=== PATIENT | male | born 1970 | race Caucasian/White ===

== ENCOUNTER → 2020-01-14 13:36 | Outpatient (REF) | payer OTHER, SELFPAY ==
--- NOTE | 2020-01-14 13:43 | CA_ITS ---
Transthoracic Echocardiogram Patient (Last, First, Middle): Calvin Alvarez, Gender: Male Date of : 1970 Age: 49 Procedure Date: 01/14/2020 Procedure Type: Transthoracic Echocardiogram Location: OP Height: 177.8 cm Weight: 118.39 kg BSA: 2.34 m2 Heart Rate: bpm BP: 140 / 82 mmHg Cpo: Referring MD: Alexander Lee [facility] Symptoms: R01.1 - Cardiac murmur, unspecified Study Quality: Good ECG Rhythm: Sinus Conclusions: - The left ventricular systolic function is normal. The visually estimated ejection fraction is between 60-65%. - No obvious valvular pathology seen on this study. - Top normal ascending aortic size at 3.8 cm. Findings Left Ventricle Normal left ventricular cavity size. There is moderately increased left ventricular wall thickness. The left ventricular systolic function is normal. The visually estimated ejection fraction is between 60-65%. There is no evidence of regional wall motion abnormalities. Diastolic function is normal for age. Right Ventricle Normal right ventricular cavity size and systolic function. Atria The left atrium is normal in size. The right atrium is normal in size. Aortic Valve There is a normal trileaflet aortic valve. There is no aortic valve stenosis. There is trace (trivial) aortic valve regurgitation. Mitral Valve The mitral valve appears normal. There is trace mitral valve regurgitation. There is no mitral valve stenosis. Pulmonic Valve The pulmonic valve was not well visualized. Tricuspid Valve Normal tricuspid valve structure. There is trace tricuspid valve regurgitation. The pulmonary artery systolic pressure is normal. Great Vessels Top normal ascending aortic size at 3.8 cm. Venous The inferior vena cava is normal in size and collapses greater than 50% with inspiration. Pericardium/Pleural There is no evidence of pericardial effusion. Prior Study Comparison No significant change compared to prior study dated: 07/13/2017. Recommendations, Care & Conclusions No obvious valvular pathology seen on this study. Measurements 2D Linear Measurements IVSd: 1.41 0.6-0.9/0.6-1.0 cm LVIDd: 4.50 3.9-5.3/4.2-5.9 cm LVIDd Index: 1.92 2.4-3.2/2.2-3.1 cm/m2 LVIDs: 2.70 2.0-3.6 cm LVPWd: 1.30 0.7-1.1 cm Ao Root: 3.50 2.1-3.5 cm LA Diam: 3.70 2.7-3.8/3.0-4.0 cm LAIDs Index: 1.58 1.5-2.3 cm/m2 LV Mass: 295.03 67-162/88-224 g LV Mass Index: 126.08 43-95/49-115 g/m2 LVOT Diam: 2.10 3.0+(-)1.3 cm Mitral Valve MV Pk E: 0.70 MV PK A: 0.75 MV Decel Time: 234.00 E/A: 0.90 E'Lateral: 10.80 E'Medial: 7.07 E/E' Med: 10.00 E/E' Lat: 6.50 PHT: 69.00 MVA PHT: 3.19 Decel Dickinson: 3.01 Aortic Valve AoV Pk Jaime: 1.65 AoV Mn Jaime: 1.13 AoV VTI: 0.39 AoV Pk Grad: 11.00 Aov Mn Grad: 6.00 SUZANNE Cont.VTI: 2.24 LVOT LVOT Pk Jaime: 1.25 LVOT Mn Jaime: 0.82 LVOT VTI: 0.25 LVOT Pk Grad: 6.00 LVOT Mn Grad: 3.00 LVOT Diam: 2.10 LVOT Area: 3.46 Diastolic Function MV Pk E: 0.70 MV Pk A: 0.75 E/A: 0.90 E'Medial: 7.07 E/E' Med: 10.00 E' Laterial: 10.80 E/E' Lat: 6.50 Tricuspid Valve TR Pk Jaime: 1.63 TR Pk Grad: 11.00 RA Press: 3.00 RVSP: 14.00 Great Vessels Aorta Ao Root-2D: 3.50 2.0-3.7 cm Pulmonary Valve PV Pk Jaime: 1.04 Peak PV Grad: 4.00 Updated in Other Vendor System with Status of Final Pascual Kuhn MD electronically signed on 01/15/2020 9:18:50 AM with status of Final
== END ==
LOC: HO.CARD 13:36
PROVIDERS: Visit Provider Nurse Practitioner Family
DX: R01.1 Cardiac murmur, unspecified (principal)
CPT/HCPCS: 93306

== ENCOUNTER 2020-05-16 10:05 | Outpatient (REF) | payer OTHER, SELFPAY ==
--- NOTE | ~2020-05-16 | XR_ITS ---
EXAMINATION: XR CHEST CLINICAL INFORMATION: Shortness of breath COMPARISON: Previous chest x-ray most recent September 2018 TECHNIQUE: 2 views of the chest were obtained. FINDINGS: No significant abnormality is noted involving the heart, lungs, mediastinum, bony thorax or soft tissues. XR/XR chest 2V IMPRESSION: Unremarkable examination.
== END 2020-05-16 10:06 | disposition home or self-care (01) ==
LOC: HO.HMGCX 10:05
PROVIDERS: PCP Nurse Practitioner Family; Visit Provider Hospitalist
DX: R06.02 Shortness of breath (principal)
CPT/HCPCS: 71046

== ENCOUNTER 2020-07-07 07:55 | Outpatient (REF) | payer OTHER, SELFPAY ==
[2020-07-07 12:07] LABS: Anion Gap 11 (12-20); Blood Urea Nitrogen 13 mg/dL (9-16); Calcium 8.6 mg/dL (8.4-10.2); Carbon Dioxide 28 mmol/L (22-29); Chloride 104 mmol/L (96-108); Cholesterol 154 mg/dL; Estimated Glomerular Filt Rate > 60; Glucose Fasting 90 mg/dL (60-99); HDL Cholesterol 52 mg/dL; LDL Cholesterol Calculated 88 mg/dl; Potassium 4.3 mmol/L (3.3-5.1); Sodium 139 mmol/L (135-145); Triglycerides 74 mg/dL
[2020-07-07 12:12] LABS: TSH reflex Free T4 0.32 uIU/mL (0.32-4.0)
== END 2020-07-07 07:56 | disposition home or self-care (01) ==
LOC: HO.HMGCLDS 07:55
PROVIDERS: PCP Nurse Practitioner Family; Visit Provider Nurse Practitioner Family
DX: R51.9 Headache, unspecified (principal); Z12.5 Encounter for screening for malignant neoplasm of prostate
CPT/HCPCS: 36415; 80048; 80061; 84443

== ENCOUNTER 2020-08-25 08:25 | Outpatient (REF) | payer OTHER, SELFPAY ==
[2020-08-25 11:50] LABS: Alanine Aminotransferase 27 U/L (0-40); Albumin Level 4.1 g/dL (3.5-5.0); Alkaline Phosphatase 98 U/L (39-117); Anion Gap 12 (12-20); Aspartate Amino Transferase 25 U/L (5-37); Bilirubin Total 1.4 mg/dL (0.0-1.0); Blood Urea Nitrogen 8 mg/dL (9-16); Calcium 8.8 mg/dL (8.4-10.2); Carbon Dioxide 27 mmol/L (22-29); Chloride 105 mmol/L (96-108); Cholesterol 178 mg/dL; Estimated Glomerular Filt Rate > 60; Glucose Fasting 83 mg/dL (60-99); HDL Cholesterol 50 mg/dL; LDL Cholesterol Calculated 113 mg/dl; Potassium 4.7 mmol/L (3.3-5.1); Sodium 139 mmol/L (135-145); Total Protein 6.9 g/dL (6.5-8.0); Triglycerides 77 mg/dL
[2020-08-25 12:13] LABS: TSH reflex Free T4 0.32 uIU/mL (0.32-4.0)
== END 2020-08-25 08:26 | disposition home or self-care (01) ==
LOC: HO.HMGCLDS 08:25
PROVIDERS: PCP Nurse Practitioner Family; Visit Provider Nurse Practitioner Family
DX: Z12.5 Encounter for screening for malignant neoplasm of prostate (principal); F41.9 Anxiety disorder, unspecified
CPT/HCPCS: 36415; 80053; 80061; 84153; 84443

== ENCOUNTER 2021-01-31 07:29 | Outpatient (REF) | payer OTHER, SELFPAY ==
[2021-01-31 11:18] LABS: Appearance Urine CLEAR; Color Urine YELLOW; Glucose Urine UA NEG (NEG); Leukocyte Esterase Urine NEG (NEG); Nitrite Urine NEG (NEG); PH 7.5 (5.0-8.0); Specific Gravity - Urine 1.015 (1.005-1.025); Urine Blood NEG (NEG); Urine Ketones NEG (NEG); Urine Protein NEG (NEG-TRACE)
[2021-01-31 11:49] LABS: Alanine Aminotransferase 29 U/L (0-40); Alkaline Phosphatase 104 U/L (39-117); Anion Gap 9 (12-20); Aspartate Amino Transferase 24 U/L (5-37); Bilirubin Total 1.3 mg/dL (0.0-1.0); Blood Urea Nitrogen 11 mg/dL (9-16); Calcium 8.8 mg/dL (8.4-10.2); Carbon Dioxide 29 mmol/L (22-29); Chloride 103 mmol/L (96-108); Cholesterol 140 mg/dL; Estimated Glomerular Filt Rate > 60; Glucose Fasting 94 mg/dL (60-99); HDL Cholesterol 43 mg/dL; LDL Cholesterol Calculated 85 mg/dl; Sodium 137 mmol/L (135-145); Total Protein 6.8 g/dL (6.5-8.0); Triglycerides 60 mg/dL
[2021-01-31 11:52] LABS: Prostate Specific Antigen Scr 0.65 ng/mL (<0.05-4.0)
[2021-01-31 12:35] LABS: Free T4 (Free Thyroxine) 0.83 ng/dL (0.71-1.85)
== END 2021-01-31 07:30 | disposition home or self-care (01) ==
LOC: HO.HMGCLDS 07:29
PROVIDERS: PCP Nurse Practitioner Family; Visit Provider Nurse Practitioner Family
DX: Z00.00 Encounter for general adult medical examination without abnormal findings (principal); Z12.5 Encounter for screening for malignant neoplasm of prostate
CPT/HCPCS: 36415; 80053; 80061; 81003; 84153; 84439; 84443

== ENCOUNTER 2021-08-03 09:13 | Outpatient (REF) | payer OTHER, SELFPAY ==
[2021-08-03 11:14] LABS: MANUAL DIFF FLAG NO
[2021-08-03 11:17] LABS: Appearance Urine CLEAR; Color Urine YELLOW; Glucose Urine UA NEG (NEG); Leukocyte Esterase Urine NEG (NEG); Nitrite Urine NEG (NEG); Urine Blood NEG (NEG); Urine Ketones NEG (NEG); Urine Protein NEG (NEG-TRACE)
[2021-08-03 11:20] LABS: Basophils Absolute Auto 0.1 X10*3/uL (0.0-0.2); Basophils Percent Auto 0.9 % (0-2); Eosinophils Absolute Auto 0.1 X10*3/uL (0.0-0.4); Eosinophils Percent Auto 1.9 % (0-4); Hematocrit 51.4 % (42.0-52.0); Hemoglobin 16.9 g/dl (14.0-18.0); Imm Gran Abs Auto 0.02 X10*3/uL (0.00-0.03); Imm Gran Pct Auto 0.3 % (0.0-0.4); Lymphocytes Absolute Auto 1.8 X10*3/uL (1.2-4.9); Lymphocytes Percent Auto 26.4 % (20-40); Mean Corpuscular HGB Conc 32.9 g/dl (31.0-36.0); Mean Corpuscular Hemoglobin 29.2 pg (27.0-33.0); Mean Corpuscular Volume 88.8 fL (80.0-98.0); Mean Platelet Volume 12.8 fL (9.4-12.4); Monocytes Absolute Auto 0.6 X10*3/uL (0.1-1.2); Monocytes Percent Auto 8.3 % (2-11); Neutrophils Absolute Auto 4.2 x10*3/uL (2.0-8.3); Neutrophils Percent Auto 62.2 % (45-73); Platelet Count 146 X10*3/uL (160-400); Red Blood Count 5.79 X10*6/uL (4.60-5.80); Red Cell Distribution Width 13.6 % (11.0-16.0); White Blood Count 6.7 X10*3/uL (4.8-10.8)
[2021-08-03 11:57] LABS: TSH reflex Free T4 0.35 uIU/mL (0.32-4.0)
[2021-08-03 12:09] LABS: Alanine Aminotransferase 24 U/L (0-40); Albumin Level 3.9 g/dL (3.5-5.0); Alkaline Phosphatase 119 U/L (39-117); Anion Gap 11 (12-20); Aspartate Amino Transferase 24 U/L (5-37); Bilirubin Total 1.6 mg/dL (0.0-1.0); Blood Urea Nitrogen 13 mg/dL (9-16); Calcium 9.3 mg/dL (8.4-10.2); Carbon Dioxide 28 mmol/L (22-29); Chloride 103 mmol/L (96-108); Cholesterol 159 mg/dL; Estimated Glomerular Filt Rate > 60; Glucose Fasting 96 mg/dL (60-99); HDL Cholesterol 46 mg/dL; LDL Cholesterol Calculated 103 mg/dl; Potassium 4.6 mmol/L (3.3-5.1); Sodium 137 mmol/L (135-145); Total Protein 7.2 g/dL (6.5-8.0); Triglycerides 50 mg/dL
== END 2021-08-03 09:14 | disposition home or self-care (01) ==
LOC: HO.HMGCLDS 09:13
PROVIDERS: PCP Nurse Practitioner Family; Visit Provider Nurse Practitioner Family
DX: R07.9 Chest pain, unspecified (principal)
CPT/HCPCS: 36415; 80053; 80061; 81003; 84443; 85025

== ENCOUNTER 2021-09-03 06:41 | Outpatient (REF) | payer OTHER, SELFPAY ==
[2021-09-03 11:26] LABS: Bilirubin Direct 0.6 mg/dL (0.0-0.5); Bilirubin Total 1.5 mg/dL (0.0-1.0)
== END 2021-09-03 06:42 | disposition home or self-care (01) ==
LOC: HO.HMGCLDS 06:41
PROVIDERS: Visit Provider Nurse Practitioner Family
DX: R17 Unspecified jaundice (principal)
CPT/HCPCS: 36415; 82247; 82248

== ENCOUNTER → 2021-10-19 10:54 | Outpatient (BNVA) | payer OTHER, SELFPAY | PROVIDERS: PCP Nurse Practitioner Family; Visit Provider Nurse Practitioner Family | DX: R17 Unspecified jaundice (principal); R79.89 Other specified abnormal findings of blood chemistry; R74.8 Abnormal levels of other serum enzymes; R10.9 Unspecified abdominal pain; K58.2 Mixed irritable bowel syndrome; R14.0 Abdominal distension (gaseous) | CPT/HCPCS: 99202; 99212 ==

== ENCOUNTER 2021-10-24 08:05 | Outpatient (REF) | payer OTHER, SELFPAY ==
[2021-10-24 09:50] LABS: Bilirubin Direct 0.7 mg/dL (0.0-0.5); Bilirubin Total 1.9 mg/dL (0.0-1.0); Lipase 46 U/L (8-78)
[2021-10-26 03:35] LABS: HBS Num1 0.43 mIU/mL (0-7.99); HBc Num1 0.07 S/CO (0.00-0.79); HIV Num 1 0.09 S/CO (0.00-0.99); Hepatitis B Core Antibody Nonreactive (Nonreactive); ~HepC Num1 0.06 S/CO (0.00-0.79); ~Hepatitis B Surface Antibody NONREACTIVE (Nonreactive); ~Hepatitis C Antibody Nonreactive (Nonreactive)
[2021-10-26 03:36] LABS: HBsAGNum1 0.22 S/CO (0.00-0.99); HIV AB/AG Nonreactive (Nonreactive); Hepatitis B Surface Antigen Negative (Negative)
[2021-10-26 14:07] LABS: Alpha Fetoprotein 0.7 ng/mL (<6.1)
[2021-10-27 08:42] LABS: Anti Nuclear Antibody Screen NEGATIVE (NEGATIVE)
[2021-10-28 05:01] LABS: Hepatitis A Antibody IgM 0.13 Index (0-0.79); ~Hepatitis A Antibody IgM Nonreactive (Nonreactive)
[2021-10-28 14:02] LABS: Smooth Muscle Antibody <20 U (<20)
[2021-10-29 06:51] LABS: Mitochondrial Antibodies NEGATIVE (NEGATIVE)
[2021-10-30 19:36] LABS: Pancreatic Elastase-1 125 mcg/g
== END 2021-10-24 08:06 | disposition home or self-care (01) ==
LOC: HO.LAB 08:05
PROVIDERS: PCP Nurse Practitioner Family; Visit Provider Nurse Practitioner Family
DX: Z11.4 Encounter for screening for human immunodeficiency virus [HIV] (principal); R10.9 Unspecified abdominal pain; R17 Unspecified jaundice; R79.89 Other specified abnormal findings of blood chemistry; R74.8 Abnormal levels of other serum enzymes
CPT/HCPCS: 36415; 82105; 82247; 82248; 82656; 83690; 86015; 86038; 86039; 86255; 86256; 86704; 86706; 86709; 86803; 87340; 87389

== ENCOUNTER 2021-12-07 12:36 | Outpatient (REF) | payer OTHER, SELFPAY ==
--- NOTE | ~2021-12-07 | US_ITS ---
EXAMINATION: US ABDOMEN COMPLETE CLINICAL INFORMATION: Unspecified jaundice. COMPARISON: X-ray KUB 11/22/2016. TECHNIQUE: Real-time imaging of the abdominal viscera. FINDINGS: PANCREAS: Visualized portions of the pancreas are unremarkable. The pancreatic tail is obscured by bowel gas. ABDOMINAL AORTA: Visualized aorta is normal in caliber however portions are obscured by bowel gas. INFERIOR VENA CAVA: Obscured by bowel gas. LIVER: The liver is normal in size. The liver contour is normal. There is diffuse increased liver parenchymal echogenicity, consistent with infiltrative hepatocellular disease. No focal hepatic lesion. There is no intrahepatic biliary duct dilatation seen. GALLBLADDER: Normal. The gallbladder is physiologically distended without evidence of stones, sludge, polyps, wall thickening or pericholecystic fluid. COMMON BILE DUCT: Normal in caliber measuring 0.2 cm in diameter. RIGHT KIDNEY: Normal. No hydronephrosis. No renal calculi or focal parenchymal lesions. The kidney measures 11.4 cm in maximum dimension. LEFT KIDNEY: Normal. No hydronephrosis. No renal calculi or focal parenchymal lesions. The kidney measures 11.0 cm in maximum dimension. SPLEEN: Normal. The spleen measures 9.3 cm in maximum dimension. FREE FLUID: None. US/US abdomen complete IMPRESSION: Increased hepatic echogenicity which can be seen in the setting of hepatic steatosis or underlying liver disease. Portions of the pancreas, aorta and IVC were obscured by bowel gas limiting evaluation.
== END 2021-12-07 12:37 | disposition home or self-care (01) ==
LOC: HO.US 12:36
PROVIDERS: Visit Provider Nurse Practitioner Family
DX: R17 Unspecified jaundice (principal)
CPT/HCPCS: 76700

== ENCOUNTER 2022-01-18 07:38 | Outpatient (REF) | payer OTHER, SELFPAY ==
[2022-01-18 11:22] LABS: MANUAL DIFF FLAG NO
[2022-01-18 11:22] LABS: Appearance Urine Clear; Color Urine Yellow; Glucose Urine UA Negative (Negative); Leukocyte Esterase Urine Negative (Negative); Nitrite Urine Negative (Negative); PH 8.5 (5.0-9.0); Urine Blood Negative (Negative); Urine Ketones Negative (Negative); Urine Protein Negative (Neg-Trace)
[2022-01-18 11:26] LABS: Basophils Percent Auto 0.6 % (0-2); Eosinophils Absolute Auto 0.1 X10*3/uL (0.0-0.4); Eosinophils Percent Auto 1.7 % (0-4); Hematocrit 49.6 % (42.0-52.0); Hemoglobin 16.2 g/dl (14.0-18.0); Imm Gran Abs Auto 0.01 X10*3/uL (0.00-0.03); Imm Gran Pct Auto 0.1 % (0.0-0.4); Lymphocytes Absolute Auto 1.9 X10*3/uL (1.2-4.9); Mean Corpuscular HGB Conc 32.7 g/dl (31.0-36.0); Mean Corpuscular Hemoglobin 29.5 pg (27.0-33.0); Mean Corpuscular Volume 90.3 fL (80.0-98.0); Monocytes Absolute Auto 0.5 X10*3/uL (0.1-1.2); Monocytes Percent Auto 6.9 % (2-11); Neutrophils Absolute Auto 4.5 x10*3/uL (2.0-8.3); Neutrophils Percent Auto 63.7 % (45-73); Platelet Count 159 X10*3/uL (160-400); Red Blood Count 5.49 X10*6/uL (4.60-5.80); Red Cell Distribution Width 13.7 % (11.0-16.0); White Blood Count 7.1 X10*3/uL (4.8-10.8)
[2022-01-18 12:12] LABS: Alanine Aminotransferase 24 U/L (0-40); Albumin Level 3.9 g/dL (3.5-5.0); Alkaline Phosphatase 108 U/L (39-117); Anion Gap 11 (12-20); Aspartate Amino Transferase 23 U/L (5-37); Bilirubin Total 1.4 mg/dL (0.0-1.0); Blood Urea Nitrogen 10 mg/dL (9-16); Calcium 8.7 mg/dL (8.4-10.2); Carbon Dioxide 27 mmol/L (22-29); Chloride 105 mmol/L (96-108); Cholesterol 146 mg/dL; Estimated Glomerular Filt Rate > 60; Glucose Fasting 93 mg/dL (60-99); HDL Cholesterol 46 mg/dL; LDL Cholesterol Calculated 90 mg/dl; Potassium 4.3 mmol/L (3.3-5.1); Sodium 139 mmol/L (135-145); Total Protein 6.7 g/dL (6.5-8.0); Triglycerides 53 mg/dL
[2022-01-18 12:19] LABS: TSH reflex Free T4 0.35 uIU/mL (0.32-4.0)
== END 2022-01-18 07:39 | disposition home or self-care (01) ==
LOC: HO.HMGCLDS 07:38
PROVIDERS: PCP Nurse Practitioner Family; Visit Provider Nurse Practitioner Family
DX: I10 Essential (primary) hypertension (principal)
CPT/HCPCS: 36415; 80053; 80061; 81003; 84443; 85025

== ENCOUNTER → 2022-02-01 10:09 | Outpatient (BNVA) | payer OTHER, SELFPAY | PROVIDERS: PCP Nurse Practitioner Family; Referring Provider Nurse Practitioner Family; Visit Provider Nurse Practitioner Family | DX: K58.2 Mixed irritable bowel syndrome (principal); R17 Unspecified jaundice; K86.89 Other specified diseases of pancreas; K76.0 Fatty (change of) liver, not elsewhere classified | CPT/HCPCS: 99212 ==

== ENCOUNTER 2022-05-31 08:05 | Outpatient (REF) | payer OTHER, SELFPAY ==
[2022-05-31 11:38] LABS: MANUAL DIFF FLAG NO
[2022-05-31 11:49] LABS: Basophils Percent Auto 0.5 % (0-2); Eosinophils Absolute Auto 0.1 X10*3/uL (0.0-0.4); Eosinophils Percent Auto 1.7 % (0-4); Hematocrit 52.1 % (42.0-52.0); Hemoglobin 16.9 g/dl (14.0-18.0); Imm Gran Abs Auto 0.02 X10*3/uL (0.00-0.03); Imm Gran Pct Auto 0.3 % (0.0-0.4); Lymphocytes Absolute Auto 1.7 X10*3/uL (1.2-4.9); Mean Corpuscular HGB Conc 32.4 g/dl (31.0-36.0); Mean Corpuscular Hemoglobin 29.4 pg (27.0-33.0); Mean Corpuscular Volume 90.8 fL (80.0-98.0); Monocytes Absolute Auto 0.4 X10*3/uL (0.1-1.2); Monocytes Percent Auto 6.6 % (2-11); Neutrophils Absolute Auto 4.2 x10*3/uL (2.0-8.3); Neutrophils Percent Auto 64.9 % (45-73); Platelet Count 145 X10*3/uL (160-400); Red Blood Count 5.74 X10*6/uL (4.60-5.80); Red Cell Distribution Width 13.6 % (11.0-16.0); White Blood Count 6.5 X10*3/uL (4.8-10.8)
[2022-05-31 11:53] LABS: Appearance Urine Cloudy; Color Urine Yellow; Glucose Urine UA Negative (Negative); Leukocyte Esterase Urine Negative (Negative); Nitrite Urine Negative (Negative); PH 8.5 (5.0-9.0); Urine Blood Negative (Negative); Urine Ketones Negative (Negative); Urine Protein Trace mg/dL (Neg-Trace)
[2022-05-31 12:53] LABS: Alanine Aminotransferase 20 U/L (0-40); Albumin Level 3.9 g/dL (3.5-5.0); Alkaline Phosphatase 99 U/L (39-117); Anion Gap 13 (12-20); Aspartate Amino Transferase 21 U/L (5-37); Bilirubin Total 1.5 mg/dL (0.0-1.0); Blood Urea Nitrogen 10 mg/dL (9-16); Calcium 8.8 mg/dL (8.4-10.2); Carbon Dioxide 27 mmol/L (22-29); Chloride 105 mmol/L (96-108); Cholesterol 148 mg/dL; Estimated Glomerular Filt Rate > 60; Glucose Fasting 94 mg/dL (60-99); HDL Cholesterol 46 mg/dL; LDL Cholesterol Calculated 94 mg/dl; Prostate Specific Antigen Scr 0.91 ng/mL (<0.05-4.0); Sodium 140 mmol/L (135-145); TSH reflex Free T4 0.42 uIU/mL (0.32-4.0); Total Protein 6.7 g/dL (6.5-8.0); Triglycerides 44 mg/dL
== END 2022-05-31 08:06 | disposition home or self-care (01) ==
LOC: HO.HMGCLDS 08:05
PROVIDERS: PCP Nurse Practitioner Family; Visit Provider Nurse Practitioner Family
DX: Z00.00 Encounter for general adult medical examination without abnormal findings (principal); Z12.5 Encounter for screening for malignant neoplasm of prostate; K76.0 Fatty (change of) liver, not elsewhere classified; K86.89 Other specified diseases of pancreas; K58.2 Mixed irritable bowel syndrome
CPT/HCPCS: 36415; 80053; 80061; 81003; 84153; 84443; 85025; 99212

== ENCOUNTER 2022-08-27 08:42 | Outpatient (REF) | payer OTHER, SELFPAY ==
[2022-08-27 11:17] LABS: MANUAL DIFF FLAG NO
[2022-08-27 11:32] LABS: Basophils Absolute Auto 0.1 X10*3/uL (0.0-0.2); Basophils Percent Auto 0.9 % (0-2); Eosinophils Absolute Auto 0.1 X10*3/uL (0.0-0.4); Eosinophils Percent Auto 2.1 % (0-4); Hematocrit 49.8 % (42.0-52.0); Hemoglobin 16.4 g/dl (14.0-18.0); Imm Gran Abs Auto 0.02 X10*3/uL (0.00-0.03); Imm Gran Pct Auto 0.3 % (0.0-0.4); Lymphocytes Absolute Auto 1.6 X10*3/uL (1.2-4.9); Lymphocytes Percent Auto 24.9 % (20-40); Mean Corpuscular HGB Conc 32.9 g/dl (31.0-36.0); Mean Corpuscular Hemoglobin 29.4 pg (27.0-33.0); Mean Corpuscular Volume 89.2 fL (80.0-98.0); Mean Platelet Volume 12.9 fL (9.4-12.4); Monocytes Absolute Auto 0.5 X10*3/uL (0.1-1.2); Monocytes Percent Auto 7.4 % (2-11); Neutrophils Absolute Auto 4.2 x10*3/uL (2.0-8.3); Neutrophils Percent Auto 64.4 % (45-73); Platelet Count 151 X10*3/uL (160-400); Red Blood Count 5.58 X10*6/uL (4.60-5.80); Red Cell Distribution Width 13.6 % (11.0-16.0); White Blood Count 6.6 X10*3/uL (4.8-10.8)
== END 2022-08-27 08:43 | disposition home or self-care (01) ==
LOC: HO.HMGCLDS 08:42
PROVIDERS: PCP Nurse Practitioner Family; Visit Provider Nurse Practitioner Family
DX: D69.6 Thrombocytopenia, unspecified (principal)
CPT/HCPCS: 36415; 85025

== ENCOUNTER 2022-10-21 07:35 | Outpatient (REF) | payer OTHER, SELFPAY ==
[2022-10-21 11:25] LABS: MANUAL DIFF FLAG NO
[2022-10-21 12:01] LABS: Basophils Absolute Auto 0.1 X10*3/uL (0.0-0.2); Basophils Percent Auto 0.8 % (0-2); Eosinophils Absolute Auto 0.2 X10*3/uL (0.0-0.4); Eosinophils Percent Auto 2.9 % (0-4); Hemoglobin 16.8 g/dl (14.0-18.0); Imm Gran Abs Auto 0.02 X10*3/uL (0.00-0.03); Imm Gran Pct Auto 0.3 % (0.0-0.4); Lymphocytes Absolute Auto 1.6 X10*3/uL (1.2-4.9); Lymphocytes Percent Auto 20.8 % (20-40); Mean Corpuscular HGB Conc 32.3 g/dl (31.0-36.0); Mean Corpuscular Hemoglobin 28.8 pg (27.0-33.0); Mean Platelet Volume 11.9 fL (9.4-12.4); Monocytes Absolute Auto 0.5 X10*3/uL (0.1-1.2); Monocytes Percent Auto 6.4 % (2-11); Neutrophils Absolute Auto 5.2 x10*3/uL (2.0-8.3); Neutrophils Percent Auto 68.8 % (45-73); Platelet Count 162 X10*3/uL (160-400); Red Blood Count 5.84 X10*6/uL (4.60-5.80); Red Cell Distribution Width 13.6 % (11.0-16.0); White Blood Count 7.6 X10*3/uL (4.8-10.8)
== END 2022-10-21 07:36 | disposition home or self-care (01) ==
LOC: HO.HMGCLDS 07:35
PROVIDERS: PCP Nurse Practitioner Family; Visit Provider Nurse Practitioner Family
DX: D69.6 Thrombocytopenia, unspecified (principal)
CPT/HCPCS: 36415; 85025

== ENCOUNTER 2022-11-01 08:50 | Outpatient (AMB) | payer OTHER, SELFPAY ==
--- NOTE | 2022-11-01 08:58 | MHC.PC.OV ---
Vital Signs 11/01/22 09:00 Height 5 ft 9 in Weight 268 lb 4 oz BMI 39.6 BP 110/84 Blood Pressure Location Rt brachial Position Sitting Pulse 67 Pulse Source Pulse Oximeter Pulse Oximetry (%) 96 Oxygen Delivery Method Room Air Intake Visit Reasons: 6 month follow up Allergies No Known Allergies Allergy (Verified 11/01/22 09:02) Tobacco use date assessed: 11/01/22 Dental Screening Dental Screen Date: 11/01/22 Did you have a dental visit in the last 12 months?: Yes Did you have a dental problem in the last 6 months where you did not have access to dental care?: No Was dental information given to patient?: Patient has dentist HPI 6 month follow up HPI Details HTN: Blood pressure is stable, managed with amlodipine 10mg. Will order labs. Denies chest pain, shortness of breath, headache, dizziness, and blurred vision. [facility] Medical History GERD (gastroesophageal reflux disease) Hepatic steatosis Hypertension Kidney stone Pancreatic insufficiency Surgical History No pertinent past surgical history Family History Father No problems noted. Mother Alzheimer disease Social History Housing: Apartment Alcohol intake: never Patient Tobacco Use Status: Former Tobacco user (7 years ago ) e-Cigarette/Vaping Use: Never Used Second Hand Smoke Exposure: No Current occupational status: employed Cognitive needs: No Hearing needs: No Vision needs: No Questionnaire Thrive Questionnaire Date Thrive assessed: 05/05/22 AUDIT C Alcohol Use Questionnaire (AUDIT-C) 1. How often do you have a drink containing alcohol?: Never 3. How often do you have six or more drinks on one occasion?: Never Total Score: 0 ARLEY-7 AMB Questionnaire ARLEY-7 Date ARLEY - 7 assessed: 05/05/22 Source: Developed by Drs. Shorty Shoemaker, Devi Webber, Edgardo Jernigan and colleagues, with an educational john from [employer]. Review of Systems Const Reports as per HPI Physical exam (Primary Care) Vital Signs: Last Vital Signs Pulse 67 11/01/22 09:00 BP 110/84 11/01/22 09:00 Pulse Ox 96 11/01/22 09:00 Oxygen Delivery Method Room Air 11/01/22 09:00 BMI result Body Mass Index 39.6 Tobacco/Smoking Status: Tobacco use Status Tobacco use date assessed 11/01/22 11/01/22 09:05 Patient Tobacco Use Status Former Tobacco user (7 years 11/01/22 08:58 ago ) e-Cigarette/Vaping Use Never Used 11/01/22 08:58 Thrive Assessment: Date of Thrive Assessment Date Thrive assessed 05/05/22 11/01/22 08:58 Const General: cooperative Nutritional Appearance: obese Orientation/consciousness: patient oriented x3 Resp Effort & Inspection: normal respiratory effort Auscultation: clear to auscultation bilaterally Cardio Rate: regular rate Rhythm: regular rhythm Heart sounds: S1 normal heart sound present, S2 normal heart sound present and Murmur heart sound present systolic (faint) Neuro General: patient oriented x3 Extrem Right lower extremity: no edema Left lower extremity: no edema Psych Appearance: grossly normal Mental Status: mental status grossly normal Speech and movement: Normal speech and movement present Affect: normal affect Attitude: cooperative Thought process: Normal thought process present Thought content: Normal thought content present Insight: Good insight present (Psych) Judgement: Good judgement present (Psych) Assessment and Plan Assessment & Plan (1) Hypertension: Code(s): I10 - Essential (primary) hypertension Plan The patient agreed to the use of a medical anthropologist for this encounter. Scribed for MICHAEL Brown by Summer Larsen medical anthropologist, on 11/01/2022 at 09:10 EST. Orders: Orders Comprehensive [place]. Panel Fast Today I10 - Essential (primary) hypertension Lipid Panel Today I10 - Essential (primary) hypertension TSH reflex Free T4 Today I10 - Essential (primary) hypertension UA CC w/rflx Micro + Cult Today I10 - Essential (primary) hypertension Coding Level of Care Code Est Pt Level 3 (10057) Diagnoses Hypertension I10
[2022-11-01 09:00] VITALS: BP 110/84; PULSE 67; O2SAT 96; BMI 39.6
== END 2022-11-01 09:16 | disposition home or self-care (01) ==
PROVIDERS: Visit Provider Nurse Practitioner Family
DX: I10 Essential (primary) hypertension (principal)
CPT/HCPCS: 99213

== ENCOUNTER 2022-12-03 08:52 | Outpatient (REF) | payer OTHER, SELFPAY ==
[2022-12-03 11:10] LABS: Alanine Aminotransferase 39 U/L (0-40); Albumin Level 4.1 g/dL (3.5-5.0); Alkaline Phosphatase 92 U/L (39-117); Aspartate Amino Transferase 48 U/L (5-37); Bilirubin Direct 0.3 mg/dL (0.0-0.5); Bilirubin Total 0.7 mg/dL (0.0-1.0); Total Protein 7.4 g/dL (6.5-8.0)
== END 2022-12-03 08:53 | disposition home or self-care (01) ==
LOC: HO.LAB 08:52
PROVIDERS: PCP Nurse Practitioner Family; Visit Provider Nurse Practitioner Family
DX: K76.0 Fatty (change of) liver, not elsewhere classified (principal)
CPT/HCPCS: 36415; 80076; 99212

== ENCOUNTER 2022-12-03 08:52 | Outpatient (AMB) | payer OTHER, SELFPAY ==
--- NOTE | 2022-12-03 08:56 | A.OFFVIS_ITS ---
Intake Vital Signs 12/03/22 09:03 Height 5 ft 9 in Weight 262 lb 5.601 oz BMI 38.7 BP 133/86 Blood Pressure Location Lt brachial Position Sitting Pulse 78 Intake Visit Reasons: 6 month fu Intake Note: Calvin presents in the office as a 6 month follow up. CC: He states that he is not having any GI concerns at this time. Sequins Winder Required: Yes Sequins Winder Name: Heath [id number] Allergies No Known Allergies Allergy (Verified 12/03/22 09:02) HPI 6 month fu HPI Details LAST VISIT Hepatic steatosis Last liver enzymes were normal, mildly elevated total bilirubin. Patient had blood work done today. Results pending. Patient was encouraged to try to lose weight, increase activity/exercise Pancreatic insufficiency Patient is tolerating Creon well. Will increase his dose. Discussed with patient diet as well Irritable bowel syndrome with both constipation and diarrhea Low FODMAP diet discussed with patient. Patient reports that since he started taking enzymes he has been feeling well. Denies any abdominal pain or discomfort. No postprandial bloating. Reports to be moving his bowels better. I will see him in 6 months, sooner on as needed basis. Patient is agreeable to this plan and verbalizes understanding of instructions. He was given the opportunity to ask questions and all questions answered. TODAY'S VISIT Patient is here today for follow-up. Patient reports that he has been doing better. Less abdominal bloating and diarrhea. Patient states that he changed his diet. Reports that Creon has been working for him. Patient is taking it with meals and is noticing big difference. Patient denies melena, hematochezia, unintentional weight loss or ribbon like stools. Increased liver echogenicity suggesting hepatic steatosis seen on ultrasound in the past. Normal liver enzymes. Patient gained about 10 lb in 1 year. Patient denies any dyspepsia, dysphagia or odynophagia. Denies any other GI concerning symptoms. [facility] Medical History Hepatic steatosis Pancreatic insufficiency Kidney stone GERD (gastroesophageal reflux disease) Hypertension Surgical History (Updated 12/03/22 @ 09:06 by KRISTINA Rowland) Hx of colonoscopy No pertinent past surgical history Family History Father No problems noted. Mother Alzheimer disease Social History Housing: Apartment Alcohol intake: never Patient Tobacco Use Status: Former Tobacco user (7 years ago ) e-Cigarette/Vaping Use: Never Used Second Hand Smoke Exposure: No Current occupational status: employed Cognitive needs: No Hearing needs: No Vision needs: No Review of Systems Const Denies weight gain and Denies weight loss ENT Reports no additional complaints, Denies dysphagia and Denies odynophagia Card Reports no additional complaints Resp Reports no additional complaints GI Denies abdominal pain, Denies belching, Denies melena, Denies bloating, Denies change in bowel habits, Denies dysphagia, Denies excessive flatus, Denies dyspepsia, Denies heartburn, Denies diarrhea, Denies loose stools, Denies nausea, Denies odynophagia and Denies vomiting Reports no additional complaints Musc Reports no additional complaints Neuro Reports no additional complaints Psych Reports no additional complaints Endo Reports no additional complaints Physical Exam Vital Signs: Last Vital Signs Pulse 78 12/03/22 09:03 BP 133/86 12/03/22 09:03 BMI result Body Mass Index 38.7 Const General: healthy appearing, no acute distress and well developed Nutritional Appearance: obese Orientation/consciousness: patient oriented x3 HEENT Head: Yes normal to inspection, Yes normocephalic and Yes atraumatic Face and sinus: Yes normal facial exam Mouth: Normal oral and palatal mucosa present Throat: Yes posterior oropharynx normal, Yes tonsils normal and Yes uvula midline Eyes General: appearance normal, both eyes and all related structures Neck Neck: Yes normal visual inspection, Yes full ROM and Yes trachea midline Thyroid: Thyroid normal Resp Effort & Inspection: normal respiratory effort, able to speak in complete sentences, no tracheal deviation and symmetric chest movement Auscultation: clear to auscultation bilaterally Cardio Rate: regular rate Heart sounds: S1 normal heart sound present and S2 normal heart sound present GI Inspection: Yes normal to inspection, No distended and Yes obesity Palpation (GI): Soft to palpation, not firm, nontender and No hepatosplenomegaly present Auscultation: normal bowel sounds General: Yes no CVA tenderness Back/Spine/Pelvis Back: no CVA tenderness Skin General skin exam: elasticity normal, turgor normal and dry skin Neuro General: patient oriented x3 Psych Appearance: grossly normal Mental Status: mental status grossly normal Assessment & Plan Assessment & Plan (1) Hepatic steatosis: Code(s): K76.0 - Fatty (change of) liver, not elsewhere classified Plan: Will repeat ultrasound with elastography. Will repeat liver enzymes as well. Discussed with patient the importance of losing weight and avoiding food high in fat. Patient was increased to eat more protein and try to exercise to lose weight (2) Pancreatic insufficiency: Code(s): K86.89 - Other specified diseases of pancreas Plan: Continue Creon with meals. Patient was encouraged to avoid dietary triggers as well. I will see him in 6 months, sooner on as needed basis. Patient is agreeable to this plan and verbalizes understanding of instructions. He he was given the opportunity to ask questions and all questions answered. Thank you for allowing me to participate in his care Orders: Orders Liver Panel Today K76.0 - Fatty (change of) liver, not elsewhere classified US abdomen comp w elastography Today K76.0 - Fatty (change of) liver, not elsewhere classified Coding Level of Care Code Est Pt Level 3 (20664) Diagnoses Hepatic steatosis K76.0 Pancreatic insufficiency K86.89 Time Spent (min) 25 Comment 15 minutes spent with patient and additional 10 minutes spent reviewing his records
[2022-12-03 09:03] VITALS: BP 133/86; PULSE 78; BMI 38.7
== END 2022-12-03 09:34 | disposition home or self-care (01) ==
PROVIDERS: PCP Nurse Practitioner Family; Visit Provider Nurse Practitioner Family
DX: K76.0 Fatty (change of) liver, not elsewhere classified (principal); K86.89 Other specified diseases of pancreas
CPT/HCPCS: 99213

== ENCOUNTER 2022-12-10 07:04 | Outpatient (REF) | payer OTHER, SELFPAY ==
[2022-12-10 11:42] LABS: Appearance Urine Clear; Color Urine Yellow; Glucose Urine UA Negative (Negative); Leukocyte Esterase Urine Negative (Negative); Nitrite Urine Negative (Negative); PH 6.5 (5.0-9.0); Urine Blood Negative (Negative); Urine Ketones Trace mg/dL (Negative); Urine Protein Negative (Neg-Trace)
[2022-12-10 12:01] LABS: Alanine Aminotransferase 32 U/L (0-40); Alkaline Phosphatase 87 U/L (39-117); Anion Gap 12 (12-20); Aspartate Amino Transferase 39 U/L (5-37); Bilirubin Total 1.4 mg/dL (0.0-1.0); Blood Urea Nitrogen 12 mg/dL (9-16); Calcium 9.2 mg/dL (8.4-10.2); Carbon Dioxide 25 mmol/L (22-29); Chloride 106 mmol/L (96-108); Cholesterol 134 mg/dL (<200); Estimated Glomerular Filt Rate > 60; Glucose Fasting 94 mg/dL (60-99); HDL Cholesterol 42 mg/dL (>40); LDL Cholesterol Calculated 85 mg/dL (<100); Sodium 139 mmol/L (135-145); Total Protein 7.3 g/dL (6.5-8.0); Triglycerides 37 mg/dL (<150)
[2022-12-10 12:07] LABS: TSH reflex Free T4 0.34 uIU/mL (0.32-4.0)
== END 2022-12-10 07:05 | disposition home or self-care (01) ==
LOC: HO.HMGCLDS 07:04
PROVIDERS: PCP Nurse Practitioner Family; Visit Provider Nurse Practitioner Family
DX: I10 Essential (primary) hypertension (principal)
CPT/HCPCS: 36415; 80053; 80061; 81003; 84443

== ENCOUNTER 2022-12-31 09:37 | Outpatient (REF) | payer OTHER, SELFPAY ==
--- NOTE | ~2022-12-31 | US_ITS ---
EXAMINATION: US COMPLETE ABDOMEN WITH LIVER ELASTOGRAPHY CLINICAL INFORMATION: Abnormal findings of blood chemistry. COMPARISON: None available. TECHNIQUE: Real-time imaging of the abdominal viscera. Noninvasive ultrasound liver fibrosis assessment is performed using [employer] ElastPQ point quantification shear wave elastography (2D-SWE) with a C5-2 MHz transducer. Multiple elastography samples are obtained. FINDINGS: PANCREAS: Normal. The visualized pancreatic head and body are normal in appearance. The remainder of the pancreas is obscured from visualization by the overlying bowel gas. ABDOMINAL AORTA: The proximal, middle, and distal aortic segments are normal in caliber. INFERIOR VENA CAVA: Visualized portions are normal. LIVER: The liver demonstrates normal size, contour and slight increase in echogenicity. No focal lesion or intrahepatic biliary duct dilatation. The right lobe measures 15.7 cm in length. The left lobe measures 7.9 cm in length. Portal flow is towards the liver (hepatopetal). Shear wave liver elastography median stiffness is 1.75 m/s (reference: normal median stiffness is 1.3 m/s or less). IQR/median stiffness to assess sampling precision is 0.15 (reference: good quality data set is IQR/median stiffness of 0.15 or less). GALLBLADDER: Normal. The gallbladder is physiologically distended without evidence of stones, sludge, polyps, wall thickening or pericholecystic fluid. COMMON BILE DUCT: Normal in caliber measuring 0.3 cm in diameter. RIGHT KIDNEY: Normal. No hydronephrosis. No renal calculi or focal parenchymal lesions. The kidney measures 12.1 cm in maximum dimension. LEFT KIDNEY: Normal. No hydronephrosis. No renal calculi or focal parenchymal lesions. The kidney measures 11.0 cm in maximum dimension. SPLEEN: Normal. The spleen measures 9.9 cm in maximum dimension. FREE FLUID: None. US/US abdomen comp w elastography IMPRESSION: 1. There is slightly increased hepatic echotexture, consistent with fatty infiltration or hepatocellular disease. Please correlate clinically. No focal hepatic mass or intrahepatic biliary dilatation is seen. 2. Liver elastography: Measurements are suggestive of compensated advanced chronic liver disease but need further test for confirmation. REFERENCE: Society of Radiologists in Ultrasound Liver Stiffness Thresholds (2020): LIVER STIFFNESS THRESHOLDS: *Liver Stiffness equal or less than 1.3 m/s: High probability of being normal. *Liver Stiffness less than 1.7 m/s: In the absence of other known clinical signs, rules out compensated advanced chronic liver disease. *Liver Stiffness 1.7-2.1 m/s: Suggestive of compensated advanced chronic liver disease but need further test for confirmation. *Liver Stiffness over 2.1 m/s: Rules in compensated advanced chronic liver disease. *Liver Stiffness over 2.4 m/s: Suggestive of clinically significant portal hypertension. QUALITY OF DATA SET: *IQR/Median value equal or less than 0.15 implies a quality data set. *IQR/Median value over 0.15 implies a poor quality data set. SIGNIFICANT CHANGE FROM PRIOR EXAM: Significant change if liver stiffness measurement is 10% or greater from prior exam. OTHER CONSIDERATIONS: The stage of liver fibrosis may be overestimated in the setting of acute hepatitis, liver inflammation, elevated liver function tests, hepatic vascular congestion, obstructive cholestasis, non-fasting state, and infiltrative diseases such as amyloidosis and lymphoma. In some patients with NAFLD, the liver stiffness thresholds for compensated advanced chronic liver disease may be lower. In causes other than viral hepatitis and NAFLD, liver stiffness thresholds are not well established.
== END 2022-12-31 09:38 | disposition home or self-care (01) ==
LOC: HO.US 09:37
PROVIDERS: PCP Nurse Practitioner Family; Visit Provider Nurse Practitioner Family
DX: K76.0 Fatty (change of) liver, not elsewhere classified (principal)
CPT/HCPCS: 76705; 76981

== ENCOUNTER 2023-05-27 07:46 | Outpatient (AMB) | payer OTHER, SELFPAY ==
--- NOTE | 2023-05-27 08:03 | A.OFFPC_ITS ---
Vital Signs 05/27/23 08:05 Height 5 ft 9 in Weight 257 lb 4 oz BMI 38.0 BP 120/78 Blood Pressure Location Rt brachial Position Sitting Pulse 73 Pulse Source Pulse Oximeter Pulse Oximetry (%) 97 Oxygen Delivery Method Room Air Intake Visit Reasons: Est. Care, requesting labs Intake Note: Pt is here to est care Allergies No Known Allergies Allergy (Verified 05/27/23 08:25) Medication List - Last Reconciled 05/27/23 by ANA Reyes amlodipine 10 mg PO DAILY cholecalciferol (vitamin D3) 50 mcg PO DAILY dkowpi-ljrkbzvy-jzsbqtu 24,000-76,000 -120,000 unit (Creon) 1 cap PO QID Tobacco use date assessed: 05/27/23 Dental Screening Dental Screen Date: 05/27/23 Did you have a dental visit in the last 12 months?: No Did you have a dental problem in the last 6 months where you did not have access to dental care?: No Was dental information given to patient?: No HPI HPI Comments History of Present Illness Details Patient is a 53-year-old male who I am meeting for the 1st time. He has past medical history significant for hypertension, and frequent nephrolithiasis. Patient has colonoscopy Screen is due 10/2024. Patient's last tetanus shot was 5 years prior through the [facility] emergency room when the patient stepped on a nail. Will draw labs today. Patient is establish care with [facility] at [facility]. Patient has a chief complaint of palpitations at night. Patient states he feels like his heart sometimes starts beating fast when he was lying down trying to sleep. Denies chest pain, denies numbness, denies dizziness, denies shortness of breath, denies dyspnea on exertion. Denies nausea, vomiting, diarrhea. Will order EKG today. Patient had echocardiogram 4 years prior to this appointment. [facility] Medical History Hepatic steatosis Pancreatic insufficiency Kidney stone GERD (gastroesophageal reflux disease) Hypertension Surgical History Hx of colonoscopy No pertinent past surgical history Family History Father No problems noted. Mother Alzheimer disease Social History Housing: Apartment Alcohol intake: never Patient Tobacco Use Status: Former Tobacco user (7 years ago ) e-Cigarette/Vaping Use: Never Used Second Hand Smoke Exposure: No Current occupational status: employed Cognitive needs: No Hearing needs: No Vision needs: No Questionnaire PHQ-9 Over the last 2 weeks, how often have you been bothered by any of the following problems? 1. Little interest or pleasure in doing things: not at all 2. Feeling down, depressed, or hopeless: several days 3. Trouble falling or staying asleep, or sleeping too much: not at all 4. Feeling tired or having little energy: several days 5. Poor appetite or overeating: more than half the days 6. Feeling bad about yourself - or that you are a failure or have let yourself or your family down: not at all 7. Trouble concentrating on things, such as reading the newspaper or watching television: not at all 8. Moving or speaking so slowly that other people could have noticed. Or the opposite - being so fidgety or restless that you have been moving around a lot more than usual: not at all 9. Thoughts that you would be better off or of hurting yourself in some way: several days Total score: 5 Depression Screening Interpretation: Negative Depression Screening Done: Yes 71259 - PHQ-9 Billing: Yes Source: Developed by Drs. Shorty Shoemaker, Devi Webber, Edgardo Jernigan and colleagues, with an educational john from [employer]. Thrive Questionnaire Date Thrive assessed: 05/27/23 I am a: Patient What is your living situation today?: I have a place to live, but I am worried about losing it in the future Within the past 12 months, did the food you bought not last and you didn't have the money to get more?: Never true Within the past 12 months, did you worry whether your food would run out before you got money to buy more?: Never true Do you have trouble paying for medicines?: No Do you have trouble getting transportation to medical appointments?: No Do you have trouble paying your heating and electricity bill?: No Do you have trouble taking care of your child, family member or friend?: No Do you have trouble with day-to-day activities such as bathing, preparing meals, shopping, managing finances, etc.?: No Are you currently unemployed and looking for a job?: No Are you interested in more education?: No THRIVE Score: 1 AUDIT C Alcohol Use Questionnaire (AUDIT-C) 1. How often do you have a drink containing alcohol?: Never Total Score: 0 ARLEY-7 AMB Questionnaire ARLEY-7 Date ARLEY - 7 assessed: 05/27/23 Source: Developed by Drs. Shorty Shoemaker, Devi Webber, Edgardo Jernigan and colleagues, with an educational john from [employer]. ARLEY-7 Assessment Billing ARLEY-7 Assessment Tool: pt declined-do not bill Review of Systems Const All systems reviewed & are unremarkable except as noted in HPI and below Denies headache(s) ENT Denies dizziness and Denies headache(s) Card Denies chest pain, Denies dyspnea, Denies dyspnea on exertion, Denies orthopnea and Reports other (Admits palpitations) Resp Denies dyspnea and Denies dyspnea on exertion Musc Denies numbness Neuro Denies dizziness, Denies headache(s) and Denies numbness Psych Denies anxiety and Denies panic attacks Endo Reports polyuria (Patient states he has drink 2-3 L per day to avoid kidney stones.) Physical exam (Primary Care) Care Plan Goal for BP management: Vital signs reviewed stable. Tobacco/Smoking Status: Tobacco use Status Tobacco use date assessed 11/01/22 11/01/22 09:05 Patient Tobacco Use Status Former Tobacco user 11/01/22 08:58 e-Cigarette/Vaping Use Never Used 11/01/22 08:58 Depression Screening Interpretation: Negative Thrive Assessment: Date of Thrive Assessment Date Thrive assessed 05/05/22 11/01/22 08:58 Const Other: Appearance: Alert.? Oriented X3.? No acute distress.? Head: Normocephalic, atraumatic, Neck: Normal inspection.? Neck supple.? CVS: Normal heart rate and rhythm.? Pulses normal.?+ systolic murmur (faint). Respiratory: No respiratory distress.? Breath sounds normal.? Neuro: Oriented X 3.? No motor deficit.? No sensory deficit. CN 2-12 intact Office Procedures EKG 88157-Yyaqqyylaavrpufeu, Complete Assessment and Plan Assessment & Plan (1) Palpitation: Comment: Will order labs today. Will order EKG. Patient has echocardiogram on file. Code(s): R00.2 - Palpitations (2) Hypertension: Comment: Patient takes amlodipine. Blood pressure is in control. Patient has no symptoms of headache dizziness or vision changes. Code(s): I10 - Essential (primary) hypertension Qualifiers: Hypertension type: unspecified Qualified Code(s): I10 - Essential (primary) hypertension Plan: Take your medications as prescribed. If you were prescribed antibiotics today, it is important that you take your medication to their entirety, do not skip any doses, do not finish them early. Follow-up with your primary care provider this week. Return to the emergency department with new or worsening symptoms. Such as fevers, chills, chest pain, shortness of breath, nausea, vomiting, dizziness, headache, vision changes, lethargy In case of emergency call 911 Plan Follow-up with physical exam in 4-5 months Orders: Orders Vitamin D 25-OH (D2 and D3) Today Z13.21 - Encounter for screening for nutritional disorder Vitamin B12 Today Z13.21 - Encounter for screening for nutritional disorder AMB EKG-In Office Today R00.2 - Palpitations Hemoglobin A1c Today Z13.1 - Encounter for screening for diabetes mellitus Comprehensive Met. Panel Today I10 - Essential (primary) hypertension Complete Blood Count Auto Diff Today Z13.0 - Encounter for screening for diseases of the blood and blood-forming organs and certain disorders involving the immune mechanism Lipid Panel Today Z13.220 - Encounter for screening for lipoid disorders UA CC w/rflx Micro + Cult Today Z13.89 - Encounter for screening for other disorder TSH reflex Free T4 Today Z13.29 - Encounter for screening for other suspected endocrine disorder Vitamin B6 Today Z13.21 - Encounter for screening for nutritional disorder Coding Level of Care Code Est Pt Level 4 (66789) Diagnoses Palpitation R00.2 Hypertension, unspecified type I10 Hypertension type: unspecified CPT Codes EKG - CPT: 28176-Hcfznujzrnnquvgnk, Complete ([id number]) Time Spent (min) 45
[2023-05-27 08:05] VITALS: BP 120/78; PULSE 73; O2SAT 97; BMI 38.0
== END 2023-05-27 11:14 | disposition home or self-care (01) ==
PROVIDERS: PCP Nurse Practitioner Family; Visit Provider Nurse Practitioner Primary Care
DX: R00.2 Palpitations (principal); I10 Essential (primary) hypertension
CPT/HCPCS: 93000; 99214

== ENCOUNTER 2023-05-27 09:03 | Outpatient (REF) | payer OTHER, SELFPAY ==
[2023-05-27 10:21] LABS: Appearance Urine Clear; Color Urine Yellow; Glucose Urine UA Negative (Negative); Leukocyte Esterase Urine Negative (Negative); Nitrite Urine Negative (Negative); Specific Gravity - Urine 1.025 (1.005-1.025); Urine Blood Negative (Negative); Urine Ketones Trace mg/dL (Negative); Urine Protein Trace mg/dL (Neg-Trace)
[2023-05-27 10:39] LABS: MANUAL DIFF FLAG NO
[2023-05-27 10:45] LABS: Basophils Absolute Auto 0.1 X10*3/uL (0.0-0.2); Basophils Percent Auto 0.9 % (0-2); Eosinophils Absolute Auto 0.1 X10*3/uL (0.0-0.4); Eosinophils Percent Auto 1.7 % (0-4); Hematocrit 51.3 % (42.0-52.0); Hemoglobin 17.4 g/dl (14.0-18.0); Imm Gran Abs Auto 0.02 X10*3/uL (0.00-0.03); Imm Gran Pct Auto 0.3 % (0.0-0.4); Lymphocytes Absolute Auto 1.6 X10*3/uL (1.2-4.9); Mean Corpuscular HGB Conc 33.9 g/dl (31.0-36.0); Mean Corpuscular Hemoglobin 29.2 pg (27.0-33.0); Mean Corpuscular Volume 86.2 fL (80.0-98.0); Monocytes Absolute Auto 0.4 X10*3/uL (0.1-1.2); Monocytes Percent Auto 7.4 % (2-11); Neutrophils Absolute Auto 3.6 x10*3/uL (2.0-8.3); Neutrophils Percent Auto 61.7 % (45-73); Platelet Count 179 X10*3/uL (160-400); Red Blood Count 5.95 X10*6/uL (4.60-5.80); Red Cell Distribution Width 13.7 % (11.0-16.0); White Blood Count 5.8 X10*3/uL (4.8-10.8)
[2023-05-27 10:53] LABS: Estimated Average Glucose 103 mg/dL; Hemoglobin A1c % 5.2 % (<6.0)
[2023-05-27 11:16] LABS: Alanine Aminotransferase 41 U/L (0-40); Albumin Level 4.1 g/dL (3.5-5.0); Alkaline Phosphatase 95 U/L (39-117); Anion Gap 8 (12-20); Aspartate Amino Transferase 38 U/L (5-37); Bilirubin Total 1.2 mg/dL (0.0-1.0); Blood Urea Nitrogen 13 mg/dL (9-16); Calcium 9.2 mg/dL (8.4-10.2); Carbon Dioxide 29 mmol/L (22-29); Chloride 106 mmol/L (96-108); Estimated Glomerular Filt Rate > 60; Glucose Random 106 mg/dL (60-115); Potassium 4.3 mmol/L (3.3-5.1); Sodium 139 mmol/L (135-145); Total Protein 7.6 g/dL (6.5-8.0)
[2023-05-27 11:27] LABS: Vitamin B12 441 pg/mL (200-900)
[2023-05-27 11:33] LABS: TSH reflex Free T4 0.23 uIU/mL (0.32-4.0)
[2023-06-01 13:09] LABS: Vitamin D 25-OH, D2 <4 ng/mL; Vitamin D 25-OH, D3 33 ng/mL; Vitamin D 25-OH, Total 33 ng/mL (30-100)
[2023-06-01 14:13] LABS: Vitamin B6 8.9 ng/mL (2.1-21.7)
== END 2023-05-27 09:04 | disposition home or self-care (01) ==
LOC: HO.HMGCLDS 09:03
PROVIDERS: PCP Nurse Practitioner Primary Care; Visit Provider Nurse Practitioner Primary Care
DX: Z13.29 Encounter for screening for other suspected endocrine disorder (principal); Z13.21 Encounter for screening for nutritional disorder; Z13.0 Encounter for screening for diseases of the blood and blood-forming organs and certain disorders involving the immune mechanism; Z13.89 Encounter for screening for other disorder; I10 Essential (primary) hypertension
CPT/HCPCS: 36415; 80053; 81003; 82306; 82607; 83036; 84207; 84439; 84443; 85025

== ENCOUNTER 2023-06-03 13:12 | Outpatient (REF) | payer OTHER, SELFPAY ==
[2023-06-03 15:15] LABS: INTERNATIONAL NORM RATIO 1.2 (0.9-1.1)
[2023-06-03 16:02] LABS: Alanine Aminotransferase 27 U/L (0-40); Albumin Level 4.1 g/dL (3.5-5.0); Alkaline Phosphatase 98 U/L (39-117); Aspartate Amino Transferase 23 U/L (5-37); Bilirubin Direct 0.4 mg/dL (0.0-0.5); Bilirubin Total 0.8 mg/dL (0.0-1.0); C Reactive Protein < 0.10 mg/dL (< or = 0.50); Gamma Glutamyl Transpeptidase 20 U/L (11-51); Total Protein 7.3 g/dL (6.5-8.0)
[2023-06-03 16:18] LABS: Ferritin 75 ng/mL (20-250)
[2023-06-10 18:18] LABS: FIB-ALT 22 U/L (9-46); FIB-Alpha-2-Macroglobulin 194 mg/dL (106-279); FIB-Apolipoprotein A1 132 mg/dL (94-176); FIB-GGT 15 U/L (3-85); FIB-Haptoglobin 99 mg/dL (43-212); FIB-Total Bilirubin 0.8 mg/dL (0.2-1.2); Liver Fibrosis Score 0.31; Liver Fibrosis Stage F1-F2; Nec Inflam Act Grade A0; Nec Inflam Act Score 0.09
== END 2023-06-03 13:13 | disposition home or self-care (01) ==
LOC: HO.LAB 13:12
PROVIDERS: PCP Nurse Practitioner Family; Visit Provider Nurse Practitioner Family
DX: R79.89 Other specified abnormal findings of blood chemistry (principal); K58.9 Irritable bowel syndrome, unspecified; K76.0 Fatty (change of) liver, not elsewhere classified; R74.8 Abnormal levels of other serum enzymes
CPT/HCPCS: 36415; 80076; 81596; 82105; 82728; 82977; 85610; 86140; 99212

== ENCOUNTER 2023-06-03 13:12 | Outpatient (AMB) | payer OTHER, SELFPAY ==
--- NOTE | 2023-06-03 13:41 | A.OFFVIS_ITS ---
Intake Vital Signs 06/03/23 13:44 Height 5 ft 8 in Weight 256 lb BMI 38.9 BP 120/69 Blood Pressure Location Lt brachial Position Sitting Pulse 71 Intake Visit Reasons: 6 month follow up Intake Note: Patient follow fatty liver and lab results. Patient cc: stool change, denies any other GI issues. Office Messenger Helper Required: Yes Office Messenger Helper Name: Shanel Hernandez [phone] Accompanied by: Self / Same As Patient Allergies No Known Allergies Allergy (Verified 06/03/23 13:41) HPI 6 month follow up HPI Details LAST VISIT: Hepatic steatosis Will repeat ultrasound with elastography. Will repeat liver enzymes as well. Discussed with patient the importance of losing weight and avoiding food high in fat. Patient was increased to eat more protein and try to exercise to lose weight Pancreatic insufficiency Continue Creon with meals. Patient was encouraged to avoid dietary triggers as well. I will see him in 6 months, sooner on as needed basis. Patient is agreeable to this plan and verbalizes understanding of instructions. He he was given the opportunity to ask questions and all questions answered. ? Thank you for allowing me to participate in his care Plan Orders Orders Liver Panel Today K76.0 US abdomen comp w elastography Today K76.0 TODAY'S VISIT: Patient is here today for follow-up and to discuss ultrasound and lab results increase in liver enzymes. Patient is trying to lose weight eating better. However patient does admit that he eats lots of carbohydrates. Patient admits that he should try to exercise. Patient reports that he has been very busy and little stressed out. Patient states that when he is stressed out he binge eats sweets. Patient reports that his stool change. Patient states that he has to push in order for him to have a bowel movement. Not taking any fiber supplements. Not eating much of vegetables or fruits. Patient reports that he drinks fluids but does not drink enough water. Patient denies any melena, hematochezia, unintentional weight loss or ribbon like stools. Patient denies any dyspepsia, dysphagia or odynophagia. Patient is taking Creon and reports that his symptoms of abdominal bloating have improved. [facility] Medical History Hepatic steatosis Pancreatic insufficiency Kidney stone GERD (gastroesophageal reflux disease) Hypertension Surgical History Hx of colonoscopy No pertinent past surgical history Family History Father No problems noted. Mother Alzheimer disease Social History Housing: Apartment Alcohol intake: never Patient Tobacco Use Status: Former Tobacco user e-Cigarette/Vaping Use: Never Used Second Hand Smoke Exposure: No Current occupational status: employed Cognitive needs: No Hearing needs: No Vision needs: No Review of Systems Const Denies weight gain and Denies weight loss ENT Reports no additional complaints, Denies dysphagia and Denies odynophagia Card Reports no additional complaints Resp Reports no additional complaints GI Denies abdominal pain, Denies belching, Denies melena, Denies bloating, Reports change in bowel habits, Reports constipation, Denies dysphagia, Denies excessive flatus, Denies dyspepsia, Denies heartburn, Denies diarrhea, Denies loose stools, Denies nausea, Denies odynophagia and Denies vomiting Reports no additional complaints Musc Reports no additional complaints Neuro Reports no additional complaints Psych Reports no additional complaints Endo Reports no additional complaints Physical Exam Vital Signs: Last Vital Signs Pulse 71 06/03/23 13:44 BP 120/69 06/03/23 13:44 BMI result Body Mass Index 38.9 Const General: healthy appearing, no acute distress and well developed Nutritional Appearance: obese Orientation/consciousness: patient oriented x3 Resp Effort & Inspection: normal respiratory effort, able to speak in complete sentences, no tracheal deviation and symmetric chest movement Auscultation: clear to auscultation bilaterally Cardio Rate: regular rate GI Inspection: Yes normal to inspection, No distended and Yes obesity Palpation (GI): Soft to palpation, not firm, nontender and No hepatosplenomegaly present Auscultation: normal bowel sounds General: Yes no CVA tenderness Back/Spine/Pelvis Back: no CVA tenderness Skin General skin exam: elasticity normal, turgor normal and dry skin Neuro General: patient oriented x3 Psych Appearance: grossly normal Mental Status: mental status grossly normal Results Reviewed Results Reviewed: ABDOMINAL ULTRASOUND WITH ELASTOGRAPHY FINDINGS: PANCREAS: Normal. The visualized pancreatic head and body are normal in appearance. The remainder of the pancreas is obscured from visualization by the overlying bowel gas. ABDOMINAL AORTA: The proximal, middle, and distal aortic segments are normal in caliber. INFERIOR VENA CAVA: Visualized portions are normal. LIVER: The liver demonstrates normal size, contour and slight increase in echogenicity. No focal lesion or intrahepatic biliary duct dilatation. The right lobe measures 15.7 cm in length. The left lobe measures 7.9 cm in length. Portal flow is towards the liver (hepatopetal). Shear wave liver elastography median stiffness is 1.75 m/s (reference: normal median stiffness is 1.3 m/s or less). IQR/median stiffness to assess sampling precision is 0.15 (reference: good quality data set is IQR/median stiffness of 0.15 or less). GALLBLADDER: Normal. The gallbladder is physiologically distended without evidence of stones, sludge, polyps, wall thickening or pericholecystic fluid. COMMON BILE DUCT: Normal in caliber measuring 0.3 cm in diameter. RIGHT KIDNEY: Normal. No hydronephrosis. No renal calculi or focal parenchymal lesions. The kidney measures 12.1 cm in maximum dimension. LEFT KIDNEY: Normal. No hydronephrosis. No renal calculi or focal parenchymal lesions. The kidney measures 11.0 cm in maximum dimension. SPLEEN: Normal. The spleen measures 9.9 cm in maximum dimension. FREE FLUID: None. US/US abdomen comp w elastography IMPRESSION: 1. There is slightly increased hepatic echotexture, consistent with fatty infiltration or hepatocellular disease. Please correlate clinically. No focal hepatic mass or intrahepatic biliary dilatation is seen. 2. Liver elastography: Measurements are suggestive of compensated advanced chronic liver disease but need further test for confirmation. Laboratory Tests 05/27/23 09:07 AST 38 H ALT 41 H Alkaline Phosphatase 95 25-OH Vitamin D Total 33 TSH 0.23 L Assessment & Plan Assessment & Plan (1) Hepatic steatosis: Code(s): K76.0 - Fatty (change of) liver, not elsewhere classified (2) Pancreatic insufficiency: Code(s): K86.89 - Other specified diseases of pancreas (3) Transaminitis: Code(s): R74.01 - Elevation of levels of liver transaminase levels Plan Increase in liver enzymes most likely related to COOL. Patient was encouraged to lose weight. Will send him to rule out autoimmune disorder. Will recheck liver panel, rule out hemochromatosis. Patient will start taking Senokot every day to help her move his bowels better. Low FODMAP diet discussed with patient as well. Discussed with patient the importance of avoiding food high in fat as well as carbohydrate and sweets. Patient will increase protein intake and avoid carbohydrates and fat. Exercise encouraged. Fluids intake and activity to promote better bowel motility. I will see patient in 3 months, sooner on as needed basis. Patient is agreeable to this plan and verbalizes understanding of instructions. He was given the opportunity to ask questions and all questions answered. Thank you for allowing me to participate in his care Orders: Orders Alpha Fetoprotein Today R79.89 - Other specified abnormal findings of blood chemistry C Reactive Protein Today K58.9 - Irritable bowel syndrome without diarrhea Liver Panel Today R74.01 - Elevation of levels of liver transaminase levels Ferritin Today R74.8 - Abnormal levels of other serum enzymes Liver Fibrosis Pnl Today R74.8 - Abnormal levels of other serum enzymes Gamma Glutamyl Transpeptidase Today R74.8 - Abnormal levels of other serum enzymes Prothrombin Time INR Today R74.8 - Abnormal levels of other serum enzymes Medications: New sennosides (Natural Senna Laxative) 17.2 mg (2 x 8.6 mg) PO BEDTIME 60 tabs 3RF constipation K59.00 - Constipation, unspecified Coding Level of Care Code Est Pt Level 3 (92861) Diagnoses Hepatic steatosis K76.0 Pancreatic insufficiency K86.89 Transaminitis R74.01 Time Spent (min) 25 Comment 15 minutes spent with patient and additional 10 minutes spent reviewing his records
[2023-06-03 13:44] VITALS: BP 120/69; PULSE 71; BMI 38.9
== END 2023-06-03 14:24 | disposition home or self-care (01) ==
PROVIDERS: PCP Nurse Practitioner Family; Visit Provider Nurse Practitioner Family
DX: K76.0 Fatty (change of) liver, not elsewhere classified (principal); K86.89 Other specified diseases of pancreas; R74.01 Elevation of levels of liver transaminase levels
CPT/HCPCS: 99213

== ENCOUNTER 2023-08-05 11:44 | Outpatient (AMB) | payer OTHER, SELFPAY ==
[2023-08-05 11:46] VITALS: BP 114/70; PULSE 86; O2SAT 98; BMI 35.3
--- NOTE | 2023-08-05 11:46 | MHC.PC.OV ---
Vital Signs 08/05/23 11:46 08/05/23 12:24 08/05/23 12:24 Height 5 ft 8 in Weight 232 lb BMI 35.3 BP 114/70 100/64 104/74 Blood Pressure Location Rt brachial Rt brachial Rt brachial Position Sitting Supine Standing Pulse 86 Pulse Source Pulse Oximeter Pulse Oximetry (%) 98 Oxygen Delivery Method Room Air Intake Visit Reasons: Patient feel weak and dizziness Intake Note: Pt is here today c/o weakness and vertigo Allergies No Known Allergies Allergy (Verified 08/05/23 11:59) Medication List - Last Reconciled 08/05/23 by ANA Reyes amlodipine 10 mg PO DAILY cholecalciferol (vitamin D3) 50 mcg PO DAILY ucyxgy-gobecgwx-blxhzri 24,000-76,000 -120,000 unit (Creon) 1 cap PO QID sennosides (Natural Senna Laxative) 17.2 mg (2 x 8.6 mg) PO BEDTIME Tobacco use date assessed: 08/05/23 Dental Screening Dental Screen Date: 05/27/23 HPI HPI Comments History of Present Illness Details Patient is a 53-year-old male in today for a sick visit. He has a past medical history significant for hepatic steatosis, anxiety, nephrolthiasis, hypertension, pancreatic insufficiency. Patient has establish care with Gastroenterology and Urology. Patient reports increased anxiety over the past several months. He believes this is related to work, currently employed at [employer]. Does not want to utilize medication at this time but would like help in finding a therapist. Will connect patient with in office liaison to help with this. Patient denies SI/HI at this time. Patient also reports that he sometimes will feel dizzy after changing positions. States this happened most often when he was bending over or when he has lying down with his head turned certain positions. Denies headache, change in vision, denies chest pain, denies numbness, denies nausea vomiting or diarrhea. Will get orthostatic vital signs. Patient is positive for in office Eliza-Hallpike maneuver. Will prescribe meclizine p.r.n. Patient had echocardiogram 4 years prior which was normal. Will repeat. [facility] Medical History Hepatic steatosis Pancreatic insufficiency Kidney stone GERD (gastroesophageal reflux disease) Hypertension Surgical History Hx of colonoscopy No pertinent past surgical history Family History Father No problems noted. Mother Alzheimer disease Social History Housing: Apartment Alcohol intake: never Patient Tobacco Use Status: Former Tobacco user e-Cigarette/Vaping Use: Never Used Second Hand Smoke Exposure: No Current occupational status: employed Cognitive needs: No Hearing needs: No Vision needs: No Questionnaire PHQ-9 Over the last 2 weeks, how often have you been bothered by any of the following problems? [id number] - PHQ-9 Billing: Patient declined-do not bill Source: Developed by Drs. Shorty Shoemaker, eDvi Webber, Edgardo Jernigan and colleagues, with an educational john from [employer]. Thrive Questionnaire Date Thrive assessed: 05/27/23 ARLEY-7 AMB Questionnaire ARLEY-7 Date ARLEY - 7 assessed: 05/27/23 Source: Developed by Drs. Shorty Shoemaker, Devi Webber, Edgardo Jernigan and colleagues, with an educational john from [employer]. ARLEY-7 Assessment Billing ARLEY-7 Assessment Tool: pt declined-do not bill Review of Systems Const All systems reviewed & are unremarkable except as noted in HPI and below Physical exam (Primary Care) Vital Signs: Last Vital Signs Pulse 86 08/05/23 11:46 BP 104/74 08/05/23 12:24 Pulse Ox 98 08/05/23 11:46 Oxygen Delivery Method Room Air 08/05/23 11:46 Care Plan Goal for BP management: Blood pressure is well controlled. BMI result Body Mass Index 35.3 BMI Assessment/Plan discussion: High BMI High, discussed plan: lifestyle, dietary and physical activity Tobacco/Smoking Status: Tobacco use Status Tobacco use date assessed 08/05/23 08/05/23 11:50 Patient Tobacco Use Status Former Tobacco user 08/05/23 11:50 e-Cigarette/Vaping Use Never Used 08/05/23 11:50 Thrive Assessment: Date of Thrive Assessment Date Thrive assessed 05/27/23 08/05/23 11:50 Const Other: Appearance: Alert.? Oriented X3.? No acute distress.? Head: Normocephalic. Eyes: Pupils equal, round and reactive to light.?EOMI. PERRLA. ENT: Pharynx normal.?TM intact and pearly lerner. Neck: Normal inspection.? Neck supple.? CVS: Normal heart rate and rhythm.? Pulses normal.? Respiratory: No respiratory distress.? Slight wheeze bilateral upper lobes. Abdomen: Soft and nontender.? Skin: Skin warm and dry.? Normal skin color.? Normal skin turgor.? Extremities: No lower extremity edema.? No calf ttp. 5/5 strength to bilateral upper and lower extremities Back: No midline tenderness, no C-spine tenderness, full range of motion, no CVA tenderness bilaterally Neuro: Oriented X 3.? No motor deficit.? No sensory deficit. CN 2-12 intact + eliza-hallpike manuver. - negative for orthostatic hypotension. Assessment and Plan Assessment & Plan (1) Anxiety: Comment: Patient meeting with community navigator to assist in establishing care for therapy. Patient denies SI/HI. Patient denies insomnia. Code(s): F41.9 - Anxiety disorder, unspecified (2) Reactive airway disease: Comment: Slight bilateral wheeze upper lobes. Patient will be given albuterol inhaler to be used p.r.n.. Will also obtain pulmonary function test. Code(s): J45.909 - Unspecified asthma, uncomplicated Qualifiers: Asthma persistence: unspecified Asthma severity: mild Qualified Code(s): J45.909 - Unspecified asthma, uncomplicated (3) Systolic murmur: Comment: Will repeat echocardiogram that was performed 4 months prior. Code(s): R01.1 - Cardiac murmur, unspecified (4) BPPV (benign paroxysmal positional vertigo): Comment: Will give meclizine to be taken p.r.n.. Code(s): H81.10 - Benign paroxysmal vertigo, unspecified ear Qualifiers: Laterality: unspecified laterality Qualified Code(s): H81.10 - Benign paroxysmal vertigo, unspecified ear Plan: Patient should follow-up and 5 week. Will also draw labs Orders: Orders Vitamin D 25-OH (D2 and D3) Today Z13.21 - Encounter for screening for nutritional disorder Vitamin B6 Today Z13.21 - Encounter for screening for nutritional disorder Vitamin B12 Today Z13.21 - Encounter for screening for nutritional disorder UA CC w/rflx Micro + Cult Today Z13.89 - Encounter for screening for other disorder TSH reflex Free T4 Today Z13.29 - Encounter for screening for other suspected endocrine disorder Basic Metabolic Panel Today I10 - Essential (primary) hypertension PFT pulmonary function test Today F41.9 - Anxiety disorder, unspecified, J45.909 - Unspecified asthma, uncomplicated Complete Blood Count Auto Diff Today R53.1 - Weakness CA echo transthoracic complete Today R01.1 - Cardiac murmur, unspecified Medications: New albuterol sulfate 90 mcg/actuation 2 puffs inhalation Q6H PRN 6.7 grams 0RF shortness of breath or wheezing meclizine 25 mg PO DAILY PRN 20 tabs 0RF motion sickness Coding Level of Care Code Est Pt Level 4 (27906) Diagnoses Anxiety F41.9 Mild reactive airways disease, unspecified whether persistent J45.909 Asthma persistence: unspecified Asthma severity: mild Systolic murmur R01.1 Benign paroxysmal positional vertigo, unspecified laterality H81.10 Laterality: unspecified laterality Time Spent (min) 35
[2023-08-05 12:24] VITALS: BP 100/64; BP 104/74
== END 2023-08-05 12:56 | disposition home or self-care (01) ==
PROVIDERS: PCP Nurse Practitioner Family; Visit Provider Nurse Practitioner Primary Care
DX: F41.9 Anxiety disorder, unspecified (principal); J45.909 Unspecified asthma, uncomplicated; R01.1 Cardiac murmur, unspecified; H81.10 Benign paroxysmal vertigo, unspecified ear
CPT/HCPCS: 99214

== ENCOUNTER → 2023-08-26 13:26 | Outpatient (REF) | payer OTHER, SELFPAY ==
--- NOTE | 2023-08-26 13:48 | CA_ITS ---
Transthoracic Echocardiogram Patient (Last, First, Middle): Calvin Alvarez, Gender: Male Date of : 1970 Age: 53 Procedure Date: 08/26/2023 Procedure Type: Transthoracic Echocardiogram Location: OP Height: 172.72 cm Weight: 103.42 kg BSA: 2.16 m2 Heart Rate: bpm BP: 130 / 90 mmHg [facility] Counselor: TO Referring MD: Chavez PEREZ Symptoms: R01.1 - Cardiac murmur, unspecified Study Quality: Adequate w contrast ECG Rhythm: Sinus Conclusions: - The left ventricular systolic function is normal. The calculated ejection fraction is 62% by biplane method. - No obvious valvular pathology seen on this study. - There is mild dilatation of the ascending aorta measuring 4.00 cm. Findings Procedure Information Contrast agent, definity, is being given per protocol without apparent complications. Left Ventricle Normal left ventricular cavity size. The left ventricular systolic function is normal. The calculated ejection fraction is 62% by biplane method. There is no evidence of regional wall motion abnormalities. Diastolic function is normal for age. There is mild septal asymmetric hypertrophy. Right Ventricle Mildly increased right ventricular cavity size. There is normal right ventricular systolic function. Atria Both atria are normal in size. Aortic Valve There is a normal trileaflet aortic valve. There is no aortic valve stenosis. There is no aortic valve regurgitation. Mitral Valve The mitral valve appears normal. There is trace mitral valve regurgitation. There is no mitral valve stenosis. Pulmonic Valve The pulmonic valve is likely normal. Tricuspid Valve Normal tricuspid valve structure. There is trace tricuspid valve regurgitation. There is no evidence of pulmonary hypertension. Great Vessels There is mild dilatation of the ascending aorta measuring 4.00 cm. Venous The inferior vena cava is normal in size and collapses greater than 50% with inspiration. Pericardium/Pleural There is no evidence of pericardial effusion. Prior Study Comparison Changes noted compared to prior study dated: 01/14/2020. slight increase in ascending aortic size. Recommendations, Care & Conclusions No obvious valvular pathology seen on this study. Measurements 2D Linear Measurements IVSd: 1.19 0.6-0.9/0.6-1.0 cm LVIDd: 4.58 3.9-5.3/4.2-5.9 cm LVIDd Index: 2.12 2.4-3.2/2.2-3.1 cm/m2 LVIDs: 2.84 2.0-3.6 cm LVPWd: 1.00 0.7-1.1 cm LA Diam: 3.80 2.7-3.8/3.0-4.0 cm LAIDs Index: 1.76 1.5-2.3 cm/m2 LV Mass: 222.79 67-162/88-224 g LV Mass Index: 103.14 43-95/49-115 g/m2 LVOT Diam: 2.30 3.0+(-)1.3 cm 2D Systolic Function EF 4C: 64.10 >55% EF 2C: 58.50 >55% EF BiP: 61.60 >55% Mitral Valve MV Pk E: 0.68 MV PK A: 0.65 MV Decel Time: 215.00 E/A: 1.10 E'Lateral: 10.00 E'Medial: 5.55 E/E' Med: 12.30 E/E' Lat: 6.80 PHT: 63.00 MVA PHT: 3.49 Decel [place]: 3.16 Aortic Valve AoV Pk Jaime: 1.64 AoV Mn Jaime: 1.07 AoV VTI: 0.33 AoV Pk Grad: 11.00 Aov Mn Grad: 5.00 SUZANNE Cont.VTI: 3.37 LVOT LVOT Pk Jaime: 1.29 LVOT Mn Jaime: 0.80 LVOT VTI: 0.27 LVOT Pk Grad: 7.00 LVOT Mn Grad: 3.00 LVOT Diam: 2.30 LVOT Area: 4.15 Diastolic Function MV Pk E: 0.68 MV Pk A: 0.65 E/A: 1.10 E'Medial: 5.55 E/E' Med: 12.30 E' Laterial: 10.00 E/E' Lat: 6.80 Right Ventricle TAPSE (mm): 18.40 TVS' Jaime: 11.20 Tricuspid Valve TR Pk Jaime: 2.04 TR Pk Grad: 17.00 RA Press: 3.00 RVSP: 20.00 Great Vessels Aorta Sinus of Valsalva: 3.90 2.0-3.5 cm Ao Asc: 4.00 2.1-3.4 cm Updated in Other Vendor System with Status of Final Pascual Kuhn MD electronically signed on 08/27/2023 1:15:23 PM with status of Final
== END ==
LOC: HO.CARD 13:26
PROVIDERS: PCP Nurse Practitioner Primary Care; Visit Provider Nurse Practitioner Primary Care
DX: R01.1 Cardiac murmur, unspecified (principal)
CPT/HCPCS: 93306; Q9957

== ENCOUNTER → 2023-08-26 13:48 | Outpatient (BNV) | payer OTHER, SELFPAY | PROVIDERS: PCP Nurse Practitioner Primary Care; Visit Provider Internal Medicine | DX: I42.2 Other hypertrophic cardiomyopathy (principal) | CPT/HCPCS: 93306 ==

== ENCOUNTER 2023-09-02 13:29 | Outpatient (AMB) | payer OTHER, SELFPAY ==
--- NOTE | 2023-09-02 13:40 | A.OFFVIS_ITS ---
Vital Signs 09/02/23 13:49 Height 5 ft 8 in Weight 226 lb 10.163 oz BMI 34.5 BP 116/80 Blood Pressure Location Lt brachial Position Sitting Pulse 70 Pulse Source Pulse Oximeter Pulse Oximetry (%) 100 Oxygen Delivery Method Room Air Intake Visit Reasons: 3 month Intake Note: Calvin presents in office today for a scheduled 3 mos FUV. CC: Pt was started on Senna at last visit. Pt had almost all of his labs completed prior to this visit. Liver panel outstanding. Pt reports that he has not been taking the senna, and had only taken it for 2 days as that is all he felt that he needed. Pt states that he is otherwise doing OK. Removable Prosthodontist Required: Yes Removable Prosthodontist Services: Removable Prosthodontist Present Removable Prosthodontist Name: Gila [id number] Information Interpreted: non-clinical & clinical Allergies No Known Allergies Allergy (Verified 09/02/23 13:41) HPI HPI 3 month: Details: LAST VISIT Hepatic steatosis Pancreatic insufficiency Transaminitis Plan Increase in liver enzymes most likely related to COOL. Patient was encouraged to lose weight. Will send him to rule out autoimmune disorder. Will recheck liver panel, rule out hemochromatosis. Patient will start taking Senokot every day to help her move his bowels better. Low FODMAP diet discussed with patient as well. Discussed with patient the importance of avoiding food high in fat as well as carbohydrate and sweets. Patient will increase protein intake and avoid carbohydrates and fat. Exercise encouraged. Fluids intake and activity to promote better bowel motility. I will see patient in 3 months, sooner on as needed basis. Patient is agreeable to this plan and verbalizes understanding of instructions. He was given the opportunity to ask questions and all questions answered. ? Thank you for allowing me to participate in his care Orders Orders Alpha Fetoprotein Today R79.89 C Reactive Protein Today K58.9 Liver Panel Today R74.01 Ferritin Today R74.8 Liver Fibrosis Pnl Today R74.8 Gamma Glutamyl Transpeptidase Today R74.8 Prothrombin Time INR Today R74.8 Medications New sennosides (Natural Senna Laxative) 17.2 mg (2 x 8.6 mg) PO BEDTIME 60 tabs 3RF constipation K59.00 TODAY'S VISIT Patient is here today for follow-up and to discuss lab results. Patient had improvement in his lab work. His liver enzymes are normal now. Patient lost 30 lb since May. Patient reports that he has been trying to exercise. Eating healthy. Avoiding fast food restaurants. Patient is avoiding fried food eating more vegetables and fruits, avoiding carbs. Overall patient reports to be feeling patient plans to continue walking and exercise to lose weight. Patient denies any dyspepsia, dysphagia or odynophagia. Reports that he is moving his bowels better now. No longer needs to use senna. Patient reports that he is doing well with Creon. Patient takes it up to 4 times a day with meals. [facility] Medical History Hepatic steatosis Pancreatic insufficiency Kidney stone GERD (gastroesophageal reflux disease) Hypertension Surgical History Hx of colonoscopy No pertinent past surgical history Family History Father No problems noted. Mother Alzheimer disease Social History Housing: Apartment Alcohol intake: never Patient Tobacco Use Status: Former Tobacco user e-Cigarette/Vaping Use: Never Used Second Hand Smoke Exposure: No Current occupational status: employed Cognitive needs: No Hearing needs: No Vision needs: No Review of Systems Const Denies weight gain and Denies weight loss ENT Reports no additional complaints, Denies dysphagia and Denies odynophagia Card Reports no additional complaints Resp Reports no additional complaints GI Denies abdominal pain, Denies belching, Denies melena, Denies bloating, Denies change in bowel habits, Denies dysphagia, Denies excessive flatus, Denies dyspepsia, Denies heartburn, Denies diarrhea, Denies loose stools, Denies nausea, Denies odynophagia and Denies vomiting Reports no additional complaints Musc Reports no additional complaints Neuro Reports no additional complaints Psych Reports no additional complaints Endo Reports no additional complaints Physical Exam Vital Signs: Last Vital Signs Pulse 70 09/02/23 13:49 BP 116/80 09/02/23 13:49 Pulse Ox 100 09/02/23 13:49 Oxygen Delivery Method Room Air 09/02/23 13:49 BMI result Body Mass Index 34.5 Const General: healthy appearing and no acute distress Nutritional Appearance: obese Orientation/consciousness: patient oriented x3 Resp Effort & Inspection: normal respiratory effort, able to speak in complete sentences, no tracheal deviation and symmetric chest movement Auscultation: clear to auscultation bilaterally Cardio Rate: regular rate GI Inspection: Yes normal to inspection, No distended and Yes obesity Palpation (GI): Soft to palpation, not firm, nontender and No hepatosplenomegaly present Auscultation: normal bowel sounds General: Yes no CVA tenderness Back/Spine/Pelvis Back: no CVA tenderness Skin General skin exam: elasticity normal, turgor normal and dry skin Neuro General: patient oriented x3 Psych Appearance: grossly normal Mental Status: mental status grossly normal Results Reviewed Results Reviewed: Laboratory Tests 05/27/23 06/03/23 09:07 14:26 Plt Count 179 PT 14.0 H INR 1.2 H Ferritin 75 Total Bilirubin 0.8 Direct Bilirubin 0.4 GGT 20 AST 23 ALT 27 Alkaline Phosphatase 98 Liver Fibrosis Stage F1-F2 C-Reactive Protein < 0.10 Albumin 4.1 Alpha Fetoprotein 1.0 Assessment & Plan Assessment & Plan (1) Hepatic steatosis: Code(s): K76.0 - Fatty (change of) liver, not elsewhere classified Category: Medical (2) Pancreatic insufficiency: Code(s): K86.89 - Other specified diseases of pancreas Category: Medical (3) Transaminitis: Code(s): R74.01 - Elevation of levels of liver transaminase levels Plan Patient will continue with Creon before meals up to 4 times a day. Continue exercise, weight loss encouraged. Continue avoid dietary triggers. Patient will return in the office in 6 months, sooner on as needed basis. He is agreeable to this plan and verbalizes understanding of instructions. He was given the opportunity to ask questions and all questions answered. Thank you for allowing me to participate in his care Medications: Refilled oczhkf-erkwakew-rdkmyhr 24,000-76,000 -120,000 unit (Creon) administer with meals and/or snacks 1 cap PO QID 120 caps 4RF K58.9 - Irritable bowel syndrome without diarrhea Coding Level of Care Code Est Pt Level 4 (96371) Diagnoses Hepatic steatosis K76.0 Pancreatic insufficiency K86.89 Transaminitis R74.01 Time Spent (min) 35 Comment 20 minutes spent with patient and additional 15 minutes spent reviewing his records
[2023-09-02 13:49] VITALS: BP 116/80; PULSE 70; O2SAT 100; BMI 34.5
== END 2023-09-02 14:12 | disposition home or self-care (01) ==
PROVIDERS: PCP Nurse Practitioner Family; Visit Provider Nurse Practitioner Family
DX: K76.0 Fatty (change of) liver, not elsewhere classified (principal); K86.89 Other specified diseases of pancreas; R74.01 Elevation of levels of liver transaminase levels
CPT/HCPCS: 99214

== ENCOUNTER → 2023-09-02 13:29 | Outpatient (BNVA) | payer OTHER, SELFPAY | PROVIDERS: PCP Nurse Practitioner Family; Visit Provider Nurse Practitioner Family | DX: K76.0 Fatty (change of) liver, not elsewhere classified (principal); K86.89 Other specified diseases of pancreas; R74.01 Elevation of levels of liver transaminase levels | CPT/HCPCS: 99212 ==

== ENCOUNTER 2023-10-05 11:58 | Outpatient (AMB) | payer OTHER, SELFPAY ==
[2023-10-05 12:19] VITALS: BP 110/66; PULSE 72; O2SAT 98; BMI 33.9
--- NOTE | 2023-10-05 12:19 | A.OFFPC_ITS ---
Vital Signs 10/05/23 12:19 Height 5 ft 8 in Weight 223 lb BMI 33.9 BP 110/66 Blood Pressure Location Lt brachial Position Sitting Pulse 72 Pulse Source Pulse Oximeter Pulse Oximetry (%) 98 Oxygen Delivery Method Room Air Intake Visit Reasons: Transfer from [facility]/ Intake Note: pt is here for establish care and requesting PE Press Setter Required: Yes Press Setter Language: Icelandic Information Interpreted: non-clinical & clinical Allergies No Known Allergies Allergy (Verified 10/05/23 12:47) Medication List - Last Reconciled 10/05/23 by Rebeca Mcghee MD albuterol sulfate 90 mcg/actuation 2 puffs inhalation Q6H PRN amlodipine 10 mg PO DAILY cholecalciferol (vitamin D3) 50 mcg PO DAILY srxkqi-wjkpeaca-yownwnb 24,000-76,000 -120,000 unit (Creon) 1 cap PO QID sennosides (Natural Senna Laxative) 17.2 mg (2 x 8.6 mg) PO BEDTIME Tobacco use date assessed: 08/05/23 Dental Screening Dental Screen Date: 05/27/23 HPI Transfer from [facility]/ HPI Details 53-year-old male with hypertension, hist ory of IBS and pancreatic insufficiency currently on Creon followed by [facility], has anxiety disorder currently on buspirone, here today for physical exam. Has been feeling well with no complaints at present time. Up-to-date with his screening colonoscopy [place] [address] Francois with removal of a tubular adenoma, repeat due again in 2024. Has had COVID vaccines in the past but does not want to get a booster, has not been getting his yearly flu shots and has not yet had his Tdap or shingles vaccine PFSH Medical History (Updated 10/10/23 @ 03:28 by Rebeca Mcghee MD) BPPV (benign paroxysmal positional vertigo) Hepatic steatosis Pancreatic insufficiency Kidney stone GERD (gastroesophageal reflux disease) Hypertension Surgical History (Updated 10/05/23 @ 13:02 by Rebeca Mcghee MD) Hx of colonoscopy Family History Father No problems noted. Mother Alzheimer disease Social History Housing: Apartment Alcohol intake: never Patient Tobacco Use Status: Former Tobacco user e-Cigarette/Vaping Use: Never Used Second Hand Smoke Exposure: No Current occupational status: employed Cognitive needs: No Hearing needs: No Vision needs: No Questionnaire PHQ-9 Over the last 2 weeks, how often have you been bothered by any of the following problems? 1. Little interest or pleasure in doing things: not at all 2. Feeling down, depressed, or hopeless: not at all 3. Trouble falling or staying asleep, or sleeping too much: several days 4. Feeling tired or having little energy: several days 5. Poor appetite or overeating: several days 6. Feeling bad about yourself - or that you are a failure or have let yourself or your family down: several days 7. Trouble concentrating on things, such as reading the newspaper or watching television: several days 8. Moving or speaking so slowly that other people could have noticed. Or the opposite - being so fidgety or restless that you have been moving around a lot more than usual: several days 9. Thoughts that you would be better off or of hurting yourself in some way: not at all Total score: 6 Depression Screening Interpretation: Negative Depression Screening Done: Yes [id number] - PHQ-9 Billing: Yes Source: Developed by Drs. Shorty Shoemaker, Devi Webber, Edgardo Jernigan and colleagues, with an educational john from [employer] Thrive Questionnaire Date Thrive assessed: 10/05/23 I am a: Patient What is your living situation today?: I have a place to live, but I am worried about losing it in the future Within the past 12 months, did the food you bought not last and you didn't have the money to get more?: Never true Within the past 12 months, did you worry whether your food would run out before you got money to buy more?: Never true Do you have trouble paying for medicines?: Yes Do you have trouble getting transportation to medical appointments?: No Do you have trouble paying your heating and electricity bill?: No Do you have trouble taking care of your child, family member or friend?: No Do you have trouble with day-to-day activities such as bathing, preparing meals, shopping, managing finances, etc.?: No Are you currently unemployed and looking for a job?: No Are you interested in more education?: I choose not to answer this question Please select the resources that you would like help with: Paying for medicine Currently or been in a relationship where the following occur: I choose not to answer THRIVE Score: 1 AUDIT C Alcohol Use Questionnaire (AUDIT-C) 1. How often do you have a drink containing alcohol?: Never 3. How often do you have six or more drinks on one occasion?: Never Total Score: 0 Score Reviewed/Action Taken: Yes ARLEY-7 AMB Questionnaire ARLEY-7 Date ARLEY - 7 assessed: 10/05/23 Feeling nervous, anxious, or on edge: 1 = Several days Not being able to stop or control worryin = Several days Worrying too much about different things: 1 = Several days Trouble relaxin = Several days Being so restless that it is hard to sit still: 1 = Several days Becoming easily annoyed or irritable: 0 = Not at all Feeling afraid as if something awful might happen: 1 = Several days Total ARLEY-7 score (0-4 normal; 5-9 mild; 10-14 moderate; 15-21 severe): 6 Source: Developed by Drs. Shorty Shoemaker, Devi Webber, Edgardo Jernigan and colleagues, with an educational john from [employer] ARLEY-7 Assessment Billing ARLEY-7 Assessment Tool: ARLEY-7 Assessment 65368 Review of Systems Const Reports no additional complaints and Reports weight loss Eyes Denies change in vision ENT Reports no additional complaints, Denies dysphagia and Denies odynophagia Card Reports no additional complaints Resp Reports no additional complaints GI Denies abdominal pain, Denies belching, Denies melena, Denies bloating, Denies change in bowel habits, Denies dysphagia, Denies excessive flatus, Denies dyspepsia, Denies heartburn, Denies diarrhea, Denies loose stools, Denies nausea, Denies odynophagia and Denies vomiting Reports no additional complaints Musc Reports no additional complaints Skin/Breast Denies rash Neuro Reports no additional complaints Psych Reports no additional complaints Endo Reports no additional complaints Esvin/Lymph Reports no additional complaints Aller/Immun Reports no additional complaints Physical exam (Primary Care) Vital Signs: Last Vital Signs Pulse 72 10/05/23 12:19 BP 110/66 10/05/23 12:19 Pulse Ox 98 10/05/23 12:19 Oxygen Delivery Method Room Air 10/05/23 12:19 BMI result Body Mass Index 33.9 Tobacco/Smoking Status: Tobacco use Status Tobacco use date assessed 08/05/23 10/05/23 12:21 Patient Tobacco Use Status Former Tobacco user 10/05/23 12:21 e-Cigarette/Vaping Use Never Used 10/05/23 12:21 PHQ-9: PHQ-9 Score PHQ-9: Total score 6 10/05/23 15:12 Depression Screening Interpretation: Negative Thrive Assessment: Date of Thrive Assessment Date Thrive assessed 10/05/23 10/05/23 12:21 Currently or been in a relationship where the following occur: I choose not to answer Const General: no acute distress and alert Orientation/consciousness: patient oriented x3 HENMT Head: Yes normocephalic and Yes atraumatic Ears: external ears normal, TM's normal bilaterally and EAC's normal General nose exam: Normal external nose present and No nasal discharge present Face and sinus: Yes face symmetric Mouth: Normal oral and palatal mucosa present, oropharynx normal and moist mucous membranes Eyes General: appearance normal, both eyes and all related structures Eyelids: Yes eyelids normal Conjunctivae: conjunctivae normal Sclerae: sclerae normal Pupils: Equal, round and reactive pupils present EOM: EOMs intact bilaterally Neck Neck: Yes full ROM, Yes no lymphadenopathy and Yes supple Thyroid: Thyroid normal Chest Chest palpation & inspection: normal inspection of the chest Resp Effort & Inspection: normal respiratory effort and able to speak in complete sentences Auscultation: clear to auscultation bilaterally Cardio Rate: regular rate Rhythm: regular rhythm Heart sounds: S1 normal heart sound present and S2 normal heart sound present GI Palpation (GI): Soft to palpation, nontender, no guarding and no masses Auscultation: normal bowel sounds General: Yes no CVA tenderness Male General Exam: No hernia Scrotum: no hydroceles and no inguinal hernias Testes: no testicular mass Back/Spine/Pelvis Back: no CVA tenderness and No back tenderness Skin General skin exam: no rashes or lesions noted Neuro General: patient oriented x3, gait normal, moves all extremities, Normal light touch and pain sensation, no focal motor deficits and CN's II-XI intact bilaterally Cranial nerves: Yes Equal, round and reactive pupils present Cognition (Neuro): normal cognition Gait exam (Neuro): Normal gait present Motor exam (neuro): 5/5 motor strength present throughout Extrem General: Yes normal to inspection, Yes full ROM, Yes no joint enlargement, Yes no pedal edema and Yes normal gait Psych Appearance: grossly normal and well kempt Mental Status: mental status grossly normal Speech and movement: Normal speech and movement present Affect: normal affect Attitude: cooperative Thought process: Normal thought process present Thought content: Normal thought content present Immunizations Boostrix Tdap 2.5 Lf unit-8 mcg-5 Lf/0.5 mL intramuscular syringe Performing Provider: Rebeca Mcghee MD Performing Location: [facility] Administered by: KRISTINA Espinoza on 10/05/23 13:09 Dose Route Admin Location Dispensed Lot Number Expiration Date NDC Marketing Assistant [employer] Division 0.5 mL IM Left Deltoid 0.5 mL [id number] 10/28/25 [id number] [employer] VIS Given Date VIS Provided VIS Publication Date 10/05/23 Single Vaccine 20 Eligibility Eligibility Date Funding Source Not VFC Eligible 10/05/23 Private Results Reviewed Results Reviewed: me: Santhosh SmithCalvin Age/Sex: 53/M : 1970 Unit#: [id number] Attend Dr: Chavez Schmidt Re05/27/23 Status: DEP REF Location: [facility] Disch: SPEC : [id number] TOM: 05/27/23 STATUS: COMP REQ : [id number] RECD: 05/27/[address]: Chavez Schmidt ADMINISTRATIVE SUPPORT MANAGER COMP: 05/27/23 ENTERED: 05/27/[address]: ORDERED: CBC Auto Diff Test Result Flag Reference WBC 5.8 4.8-10.8 X10*3/uL RBC 5.95 H 4.60-5.80 X10*6/uL HGB 17.4 14.0-18.0 g/dl HCT 51.3 42.0-52.0 % MCV 86.2 80.0-98.0 fL MCH 29.2 27.0-33.0 pg MCHC 33.9 31.0-36.0 g/dl RDW 13.7 11.0-16.0 % PLT 179 160-400 X10*3/uL MPV 12.0 9.4-12.4 fL Neut Pct Auto 61.7 45-73 % ImGran Pct Auto 0.3 0.0-0.4 % Lymp Pct Auto 28.0 20-40 % [place] Pct Auto 7.4 2-11 % Eos Pct Auto 1.7 0-4 % Baso Pct Auto 0.9 0-2 % NRBC Pct Auto 0.0 0.0-0.2 /100WBC ANC Neut Abs # 3.6 2.0-8.3 x10*3/uL ImGran Abs Auto 0.02 0.00-0.03 X10*3/uL Lymph Abs Auto 1.6 1.2-4.9 X10*3/uL [place] Abs Auto 0.4 0.1-1.2 X10*3/uL Eos Abs Auto 0.1 0.0-0.4 X10*3/uL Baso Abs Auto 0.1 0.0-0.2 X10*3/uL NRBC Abs Aut Assessment and Plan Assessment & Plan (1) Annual visit for general adult medical examination with abnormal findings: Code(s): Z00.01 - Encounter for general adult medical examination with abnormal findings Plan: Will check appropriate labs. Recommended dental visit every 6 months and regular eye exams, at least every 2 years. Take adequate calcium in diet and vitamin-D 3 at 2000 IU per cap once a day, in addition to weight-bearing exercises to help maintain good muscle tone and weight control. Instructed do self testicular exam check for any mass. Up-to-date with his screening colonoscopy due [place] [address] Francois due to removal of tubular adenoma polyp. Has had COVID vaccines in the past does not want to get booster, advised to get yearly flu shots, Tdap given today recommended as well to get shingles vaccine which can be administered pharmacy. (2) Hypertension: Code(s): I10 - Essential (primary) hypertension Qualifiers: Hypertension type: unspecified Qualified Code(s): I10 - Essential (primary) hypertension Plan: Blood pressure at goal of less than 130/80. Continue amlodipine 10 mg daily. Reinforced importance of following a low sodium diet, getting regular exercise, and lowering stress levels. (3) Pancreatic insufficiency: Code(s): K86.89 - Other specified diseases of pancreas Plan: Followed by GI clinic, currently on Creon Orders: Orders Vitamin D 25-OH Total 10/06/23 R79.89 - Other specified abnormal findings of blood chemistry, Z00.01 - Encounter for general adult medical examination with abnormal findings, Z13.1 - Encounter for screening for diabetes mellitus, Z13.220 - Encounter for screening for lipoid disorders TSH reflex Free T4 10/06/23 R79.89 - Other specified abnormal findings of blood chemistry, Z00.01 - Encounter for general adult medical examination with abnormal findings, Z13.1 - Encounter for screening for diabetes mellitus, Z13.220 - Encounter for screening for lipoid disorders Basic Metabolic Panel Fasting 10/06/23 R79.89 - Other specified abnormal findings of blood chemistry, Z00.01 - Encounter for general adult medical examination with abnormal findings, Z13.1 - Encounter for screening for diabetes mellitus, Z13.220 - Encounter for screening for lipoid disorders Lipid Panel 10/06/23 R79.89 - Other specified abnormal findings of blood chemistry, Z00.01 - Encounter for general adult medical examination with abnormal findings, Z13.1 - Encounter for screening for diabetes mellitus, Z13.220 - Encounter for screening for lipoid disorders TDaP Immunization 10/05/23 Z23 - Encounter for immunization Medications: Refilled amlodipine 10 mg PO DAILY 90 tabs 4RF Coding Level of Care Code Est Pt Prev Care 40-64y(30919) Diagnoses Annual visit for general adult medical examination with abnormal findings Z00.01 Hypertension, unspecified type I10 Hypertension type: unspecified Pancreatic insufficiency K86.89 Additional Codes ARLEY-7 Assessment Billing - ARLEY-7 Assessment Tool: ARLEY-7 Assessment 40464 ([id number])
== END 2023-10-05 13:26 | disposition home or self-care (01) ==
PROVIDERS: PCP Nurse Practitioner Family; Visit Provider Internal Medicine
DX: Z00.00 Encounter for general adult medical examination without abnormal findings (principal); I10 Essential (primary) hypertension; K86.89 Other specified diseases of pancreas; Z23 Encounter for immunization
CPT/HCPCS: 90471; 90715; 99396

== ENCOUNTER 2023-10-06 06:36 | Outpatient (REF) | payer OTHER, SELFPAY ==
[2023-10-06 11:47] LABS: Anion Gap 10 (12-20); Blood Urea Nitrogen 12 mg/dL (9-16); Calcium 9.2 mg/dL (8.4-10.2); Carbon Dioxide 28 mmol/L (22-29); Chloride 107 mmol/L (96-108); Cholesterol 137 mg/dL (<200); Estimated Glomerular Filt Rate > 60; Glucose Fasting 91 mg/dL (60-99); HDL Cholesterol 49 mg/dL (>40); LDL Cholesterol Calculated 79 mg/dL (<100); Potassium 3.8 mmol/L (3.3-5.1); Sodium 141 mmol/L (135-145); TSH reflex Free T4 0.39 uIU/mL (0.32-4.0); Triglycerides 49 mg/dL (<150); Vitamin D 25-OH Total 47.9 ng/mL (>30)
== END 2023-10-06 06:37 | disposition home or self-care (01) ==
LOC: HO.HMGCLDS 06:36
PROVIDERS: PCP Internal Medicine; Visit Provider Internal Medicine
DX: Z00.01 Encounter for general adult medical examination with abnormal findings (principal); Z13.220 Encounter for screening for lipoid disorders; R79.89 Other specified abnormal findings of blood chemistry; I10 Essential (primary) hypertension
CPT/HCPCS: 36415; 80048; 80061; 82306; 84443

== ENCOUNTER 2023-12-14 13:39 | Outpatient (AMB) | payer OTHER, SELFPAY ==
[2023-12-14 13:58] VITALS: BP 100/70; PULSE 78; O2SAT 99; BMI 34.1
--- NOTE | 2023-12-14 13:58 | MHC.PC.OV ---
Vital Signs 12/14/23 13:58 Height 5 ft 8 in Weight 224 lb BMI 34.1 BP 100/70 Blood Pressure Location Rt brachial Position Sitting Pulse 78 Pulse Source Pulse Oximeter Pulse Oximetry (%) 99 Oxygen Delivery Method Room Air Intake Visit Reasons: ER f[facility] Intake Note: Pt is here today for his [facility] heart palpitation Allergies No Known Allergies Allergy (Verified 12/14/23 23:42) Medication List - Last Reconciled 12/14/23 by Rebeca Mcghee MD amlodipine 10 mg PO DAILY cholecalciferol (vitamin D3) 50 mcg PO DAILY vjvlbx-jldyvhwz-drjccol 24,000-76,000 -120,000 unit (Creon) 1 cap PO QID sennosides (Natural Senna Laxative) 17.2 mg (2 x 8.6 mg) PO BEDTIME Tobacco use date assessed: 12/14/23 Dental Screening Dental Screen Date: 12/14/23 Did you have a dental visit in the last 12 months?: Yes Did you have a dental problem in the last 6 months where you did not have access to dental care?: No Was dental information given to patient?: Patient has dentist HPI ER f[facility] HPI Details Of year old male here today for follow-up after recent ER visit at [place] complaining of sudden onset of palpitations accompanied by dizziness. Denies any triggers, no accompanying chest pain or headache. Symptom resolved upon arrival at the ER. His EKG, labs, troponin levels were all within normal limits. At present patient states that there has not been any recurrence since his discharge. [facility] Medical History BPPV (benign paroxysmal positional vertigo) Hepatic steatosis Pancreatic insufficiency Kidney stone GERD (gastroesophageal reflux disease) Hypertension Surgical History Hx of colonoscopy Family History Father No problems noted. Mother Alzheimer disease Social History Housing: Apartment Alcohol intake: never Patient Tobacco Use Status: Former Tobacco user e-Cigarette/Vaping Use: Never Used Second Hand Smoke Exposure: No Current occupational status: employed Cognitive needs: No Hearing needs: No Vision needs: No Questionnaire Thrive Questionnaire Date Thrive assessed: 10/05/23 I am a: Patient What is your living situation today?: I have a place to live, but I am worried about losing it in the future Within the past 12 months, did the food you bought not last and you didn't have the money to get more?: Never true Within the past 12 months, did you worry whether your food would run out before you got money to buy more?: Never true Do you have trouble paying for medicines?: Yes Do you have trouble getting transportation to medical appointments?: No Do you have trouble paying your heating and electricity bill?: No Do you have trouble taking care of your child, family member or friend?: No Do you have trouble with day-to-day activities such as bathing, preparing meals, shopping, managing finances, etc.?: No Are you currently unemployed and looking for a job?: No Are you interested in more education?: I choose not to answer this question Please select the resources that you would like help with: Paying for medicine Currently or been in a relationship where the following occur: I choose not to answer THRIVE Score: 1 ARLEY-7 AMB Questionnaire ARLEY-7 Date ARLEY - 7 assessed: 10/05/23 Source: Developed by Drs. Shorty Shoemaker, Devi Webber, Edgardo Jernigan and colleagues, with an educational john from [employer]. Review of Systems Const Reports no additional complaints Eyes Denies change in vision ENT Reports no additional complaints and Denies dysphagia Card Reports no additional complaints Resp Reports no additional complaints GI Denies abdominal pain, Denies change in bowel habits, Denies dysphagia, Denies excessive flatus, Denies dyspepsia, Denies heartburn and Denies nausea Reports no additional complaints Musc Reports no additional complaints Skin/Breast Denies rash Neuro Reports no additional complaints Psych Reports no additional complaints Endo Reports no additional complaints Esvin/Lymph Reports no additional complaints Aller/Immun Reports no additional complaints Physical exam (Primary Care) Vital Signs: Last Vital Signs Pulse 78 12/14/23 13:58 BP 100/70 12/14/23 13:58 Pulse Ox 99 12/14/23 13:58 Oxygen Delivery Method Room Air 12/14/23 13:58 BMI result Body Mass Index 34.1 Tobacco/Smoking Status: Tobacco use Status Tobacco use date assessed 12/14/23 12/14/23 14:00 Patient Tobacco Use Status Former Tobacco user 12/14/23 14:00 e-Cigarette/Vaping Use Never Used 12/14/23 14:00 Thrive Assessment: Date of Thrive Assessment Date Thrive assessed 10/05/23 12/14/23 14:00 Currently or been in a relationship where the following occur: I choose not to answer Const General: no acute distress and alert Orientation/consciousness: patient oriented x3 HENMT Head: Yes normocephalic Ears: external ears normal General nose exam: Normal external nose present and No nasal discharge present Face and sinus: Yes face symmetric Mouth: Normal oral and palatal mucosa present, oropharynx normal and moist mucous membranes Eyes General: appearance normal, both eyes and all related structures Eyelids: Yes eyelids normal Conjunctivae: conjunctivae normal Sclerae: sclerae normal Pupils: Equal, round and reactive pupils present EOM: EOMs intact bilaterally Neck Neck: Yes full ROM, Yes no lymphadenopathy and Yes supple Thyroid: Thyroid normal Chest Chest palpation & inspection: normal inspection of the chest Resp Effort & Inspection: normal respiratory effort and able to speak in complete sentences Auscultation: clear to auscultation bilaterally Cardio Rate: regular rate Rhythm: regular rhythm Heart sounds: S1 normal heart sound present and S2 normal heart sound present GI Palpation (GI): Soft to palpation, nontender, no guarding and no masses Auscultation: normal bowel sounds General: Yes no CVA tenderness Back/Spine/Pelvis Back: no CVA tenderness and No back tenderness Skin General skin exam: no rashes or lesions noted Neuro General: patient oriented x3, gait normal, moves all extremities, Normal light touch and pain sensation, no focal motor deficits and CN's II-XI intact bilaterally Cranial nerves: Yes Equal, round and reactive pupils present Cognition (Neuro): normal cognition Gait exam (Neuro): Normal gait present Motor exam (neuro): 5/5 motor strength present throughout Extrem General: Yes normal to inspection, Yes full ROM, Yes no joint enlargement, Yes no pedal edema and Yes normal gait Psych Appearance: grossly normal and well kempt Mental Status: mental status grossly normal Speech and movement: Normal speech and movement present Affect: normal affect Attitude: cooperative Thought process: Normal thought process present Thought content: Normal thought content present Coding Level of Care Code Est Pt Level 3 (89575) Diagnoses Palpitation R00.2 Assessment & Plan Assessment & Plan (1) Palpitation: Code(s): R00.2 - Palpitations Category: Medical Plan: Reviewed your labs and EKG report as well as echocardiogram done recently, which was unremarkable except for some mild aortic dilatation. Patient currently asymptomatic. Ordered a 3 day Holter monitor for further evaluation. Orders: Orders ECG 3 day holter monitor Today R00.2 - Palpitations
== END 2023-12-14 15:11 | disposition home or self-care (01) ==
PROVIDERS: PCP Internal Medicine; Visit Provider Internal Medicine
DX: R00.2 Palpitations (principal)

== ENCOUNTER → 2023-12-14 13:39 | Outpatient (BNVA) | payer OTHER, SELFPAY | PROVIDERS: PCP Internal Medicine; Visit Provider Internal Medicine | DX: R00.2 Palpitations (principal) | CPT/HCPCS: 99212 ==

== ENCOUNTER → 2024-01-20 12:38 | Outpatient (REF) | payer OTHER, SELFPAY ==
--- NOTE | 2024-01-20 12:41 | HM_ITS ---
* Total monitoring time 3 days. * Underlying rhythm is sinus with an average rate of 71/Min. Brief junctional rhythm during nighttime and early head start director hours. * Rare supraventricular and ventricular ectopy. * No significant pauses or high-grade AV blocks. * Patient marker used once in association with sinus rhythm. * No diary events. MTDD
== END ==
LOC: HO.CARD 12:38
PROVIDERS: PCP Internal Medicine; Visit Provider Internal Medicine
DX: R00.2 Palpitations (principal)
CPT/HCPCS: 93242

== ENCOUNTER → 2024-01-20 12:41 | Outpatient (BNV) | payer OTHER, SELFPAY | PROVIDERS: PCP Internal Medicine; Visit Provider Internal Medicine | DX: I47.10 Supraventricular tachycardia, unspecified (principal) | CPT/HCPCS: 93244 ==

== ENCOUNTER 2024-03-02 13:07 | Outpatient (AMB) | payer OTHER, SELFPAY ==
[2024-03-02 13:19] VITALS: BP 140/84; PULSE 86; O2SAT 98; BMI 34.0
--- NOTE | 2024-03-02 13:19 | A.OFFVIS_ITS ---
Vital Signs 03/02/24 13:19 Height 5 ft 8 in Weight 223 lb 8.78 oz BMI 34.0 BP 140/84 H Blood Pressure Location Rt brachial Position Sitting Pulse 86 Pulse Source Pulse Oximeter Pulse Oximetry (%) 98 Oxygen Delivery Method Room Air Intake Visit Reasons: 6 month follow up Intake Note: ESTABLISHED PATIENT Calvin presents in office today for a scheduled 6 mos FUV. Meds and Allergies reviewed? Y No recent or relevant surgeries? N Any significant concerns or new changes? LLQ Pain + bloating intermittently. Worse since last visit. Pharmacy verified? [facility] Staff Mechanical Engineer Required: Yes Staff Mechanical Engineer Services: Staff Mechanical Engineer Present Staff Mechanical Engineer Name: [id number] Information Interpreted: non-clinical & clinical Accompanied by: Self / Same As Patient Allergies No Known Allergies Allergy (Verified 03/02/24 13:20) HPI HPI 6 month follow up: Details: LAST VISIT: Hepatic steatosis Pancreatic insufficiency Transaminitis Plan Patient will continue with Creon before meals up to 4 times a day. Continue exercise, weight loss encouraged. Continue avoid dietary triggers. Patient will return in the office in 6 months, sooner on as needed basis. He is agreeable to this plan and verbalizes understanding of instructions. He was given the opportunity to ask questions and all questions answered. ? Thank you for allowing me to participate in his care Medications Refilled mlidhs-wjlbkmtn-rikbesl 24,000-76,000 -120,000 unit (Creon) administer with meals and/or snacks 1 cap PO QID 120 caps 4RF K58.9 TODAY'S VISIT: Patient is here today for follow-up. Patient reports that since he started taking Creon he has been feeling well. However he is complaining of left lower quadrant pain and bloating. Patient reports that the pain is more frequent. He is trying to lose weight and go to the gym. He is trying to eat better. Patient reports that he is starting to go to the gym. Patient also reports that he is walking a lot. History of transaminitis in the past. Last ultrasound from 2022 showed slight increase in liver echogenicity. Last liver enzymes checked in May and they were normal. Patient denies dyspepsia, dysphagia or odynophagia. Denies melena, hematochezia, unintentional weight loss or ribbon like stools. [facility] Medical History BPPV (benign paroxysmal positional vertigo) Hepatic steatosis Pancreatic insufficiency Kidney stone GERD (gastroesophageal reflux disease) Hypertension Surgical History Hx of colonoscopy Family History Father No problems noted. Mother Alzheimer disease Social History Housing: Apartment Alcohol intake: never Patient Tobacco Use Status: Former Tobacco user e-Cigarette/Vaping Use: Never Used Second Hand Smoke Exposure: No Current occupational status: employed Cognitive needs: No Hearing needs: No Vision needs: No Review of Systems Const Denies weight gain and Denies weight loss ENT Reports no additional complaints, Denies dysphagia and Denies odynophagia Card Reports no additional complaints Resp Reports no additional complaints GI Denies abdominal pain, Denies belching, Denies melena, Denies bloating, Denies change in bowel habits, Denies dysphagia, Denies excessive flatus, Denies dyspepsia, Denies heartburn, Denies diarrhea, Denies loose stools, Denies nausea, Denies odynophagia and Denies vomiting Reports no additional complaints Musc Reports no additional complaints Neuro Reports no additional complaints Psych Reports no additional complaints Endo Reports no additional complaints Physical Exam Vital Signs: Last Vital Signs Pulse 86 03/02/24 13:19 BP 140/84 H 03/02/24 13:19 Pulse Ox 98 03/02/24 13:19 Oxygen Delivery Method Room Air 03/02/24 13:19 BMI result Body Mass Index 34.0 Const General: healthy appearing and no acute distress Nutritional Appearance: obese Orientation/consciousness: patient oriented x3 Resp Effort & Inspection: normal respiratory effort, able to speak in complete sentences, no tracheal deviation and symmetric chest movement Auscultation: clear to auscultation bilaterally Cardio Rate: regular rate GI Inspection: Yes normal to inspection, No distended and Yes obesity Palpation (GI): Soft to palpation, not firm, nontender and No hepatosplenomegaly present Auscultation: normal bowel sounds General: Yes no CVA tenderness Back/Spine/Pelvis Back: no CVA tenderness Skin General skin exam: elasticity normal, turgor normal and dry skin Neuro General: patient oriented x3 Psych Appearance: grossly normal Mental Status: mental status grossly normal Assessment & Plan Assessment & Plan (1) Hepatic steatosis: Code(s): K76.0 - Fatty (change of) liver, not elsewhere classified Category: Medical (2) Pancreatic insufficiency: Code(s): K86.89 - Other specified diseases of pancreas Category: Medical (3) Transaminitis: Code(s): R74.01 - Elevation of levels of liver transaminase levels (4) LLQ abdominal pain: Code(s): R10.32 - Left lower quadrant pain Plan Will repeat liver panel, liver fibrosis panel as well as liver ultrasound with elastography. Patient was encouraged to continue his diet. Increase activity and exercise. Patient will report in 3 months to discuss results. He is agreeable to this plan and verbalizes understanding of instructions. He was given the opportunity to ask questions and all questions answered. Thank you for allowing me to participate in his care Orders: Orders Hemoglobin A1c 03/02/24 E11.9 - Type 2 diabetes mellitus without complications Liver Fibrosis Pnl 03/02/24 K76.0 - Fatty (change of) liver, not elsewhere classified Liver Panel 03/02/24 R74.01 - Elevation of levels of liver transaminase levels US abdomen valentino w elastography 03/02/24 K76.0 - Fatty (change of) liver, not elsewhere classified Medications: Refilled dcprnk-gnicuedn-edxrmta 24,000-76,000 -120,000 unit (Creon) administer with meals and/or snacks 1 cap PO QID 120 caps 4RF K58.9 - Irritable bowel syndrome, unspecified Coding Level of Care Code Est Pt Level 4 (67001) Complex EM visit Add On G2211 Diagnoses Hepatic steatosis K76.0 Pancreatic insufficiency K86.89 Transaminitis R74.01 LLQ abdominal pain R10.32 Time Spent (min) 35 Comment 25 minutes spent with patient and additional 10 minutes spent reviewing his records
== END 2024-03-02 15:06 | disposition home or self-care (01) ==
PROVIDERS: PCP Nurse Practitioner Family; Visit Provider Nurse Practitioner Family
DX: K76.0 Fatty (change of) liver, not elsewhere classified (principal); K86.89 Other specified diseases of pancreas; R74.01 Elevation of levels of liver transaminase levels; R10.32 Left lower quadrant pain
CPT/HCPCS: 99214; G2211

== ENCOUNTER 2024-03-02 13:07 | Outpatient (REF) | payer OTHER, SELFPAY ==
[2024-03-02 14:43] LABS: Estimated Average Glucose 105 mg/dL; Hemoglobin A1C 145.6891 umol/L; Hemoglobin A1c % 5.3 % (<6.0); Total Hemoglobin (HGBA1C) 4228.7347 umol/L
[2024-03-02 14:57] LABS: Alanine Aminotransferase 22 U/L (0-40); Albumin Level 4.1 g/dL (3.5-5.0); Alkaline Phosphatase 87 U/L (39-117); Aspartate Amino Transferase 25 U/L (5-37); Bilirubin Direct 0.5 mg/dL (0.0-0.5); Bilirubin Total 1.4 mg/dL (0.0-1.0); Total Protein 7.3 g/dL (6.5-8.0)
[2024-03-13 14:54] LABS: FIB-ALT 16 U/L (9-46); FIB-Alpha-2-Macroglobulin 197 mg/dL (106-279); FIB-Apolipoprotein A1 140 mg/dL (94-176); FIB-GGT 12 U/L (3-85); FIB-Haptoglobin 104 mg/dL (43-212); FIB-Total Bilirubin 0.9 mg/dL (0.2-1.2); Liver Fibrosis Score 0.29; Liver Fibrosis Stage F1; Nec Inflam Act Grade A0; Nec Inflam Act Score 0.06; Reference ID 5268612
== END 2024-03-02 13:08 | disposition home or self-care (01) ==
LOC: HO.LAB 13:07
PROVIDERS: PCP Nurse Practitioner Family; Visit Provider Nurse Practitioner Family
DX: E11.9 Type 2 diabetes mellitus without complications (principal); K76.0 Fatty (change of) liver, not elsewhere classified; R74.01 Elevation of levels of liver transaminase levels; K86.89 Other specified diseases of pancreas; R10.32 Left lower quadrant pain
CPT/HCPCS: 36415; 80076; 81596; 83036; 99212

== ENCOUNTER 2024-03-19 11:30 | Outpatient (AMB) | payer OTHER, SELFPAY ==
--- NOTE | 2024-03-19 12:07 | A.OFFPC_ITS ---
Vital Signs 03/19/24 12:08 Height 5 ft 8 in Weight 218 lb BMI 33.1 BP 118/80 Blood Pressure Location Lt brachial Position Sitting Pulse 85 Pulse Source Pulse Oximeter Pulse Oximetry (%) 98 Oxygen Delivery Method Room Air Intake Visit Reasons: 6M F/U HTN - see comments Intake Note: Pt is here today for his f/u HTN Yard Foreman Required: Yes Yard Foreman Language: Claim Approver Name: [employer] Information Interpreted: clinical only Allergies No Known Allergies Allergy (Verified 03/19/24 12:33) Medication List - Last Reconciled 03/19/24 by Rebeca Mcghee MD amlodipine 10 mg PO DAILY cholecalciferol (vitamin D3) 50 mcg PO DAILY ckqzgw-gvipcahy-spgrkjr 24,000-76,000 -120,000 unit (Creon) 1 cap PO QID sennosides (Natural Senna Laxative) 17.2 mg (2 x 8.6 mg) PO BEDTIME Tobacco use date assessed: 03/19/24 Dental Screening Dental Screen Date: 03/19/24 Did you have a dental visit in the last 12 months?: No Did you have a dental problem in the last 6 months where you did not have access to dental care?: No Was dental information given to patient?: Patient has dentist HPI 6M F/U HTN - see comments HPI Details 53-year-old Macedonian-speaking male, here today for follow-up on his hypertension. Has been taking a amlodipine 10 mg daily, with blood pressure now stable and controlled denies any chest pain no headache or shortness of breath or palpitations He however has been diagnosed with depression with anxiety in the past was placed on buspirone 7.5 mg twice a day and sertraline taken once a day at night. Patient however decided to just abruptly stopped taking this medicines last month. Patient states that he wanted to see if he can do without these medications. However he states that he is starting to have anxiety attacks again , worse at night which interferes with his sleep. He also is requesting an [place] application form to be completed today with regards to his depression anxiety and hypertension. [facility], [facility] Medical History Anxiety with depression BPPV (benign paroxysmal positional vertigo) Hepatic steatosis Pancreatic insufficiency Kidney stone GERD (gastroesophageal reflux disease) Hypertension Surgical History Hx of colonoscopy Family History Father No problems noted. Mother Alzheimer disease Social History Housing: Apartment Alcohol intake: never Patient Tobacco Use Status: Former Tobacco user e-Cigarette/Vaping Use: Never Used Second Hand Smoke Exposure: No Current occupational status: employed Cognitive needs: No Hearing needs: No Vision needs: No Questionnaire PHQ-9 Over the last 2 weeks, how often have you been bothered by any of the following problems? 1. Little interest or pleasure in doing things: several days 2. Feeling down, depressed, or hopeless: several days 3. Trouble falling or staying asleep, or sleeping too much: several days 4. Feeling tired or having little energy: several days 5. Poor appetite or overeating: not at all 6. Feeling bad about yourself - or that you are a failure or have let yourself or your family down: several days 7. Trouble concentrating on things, such as reading the newspaper or watching television: several days 8. Moving or speaking so slowly that other people could have noticed. Or the opposite - being so fidgety or restless that you have been moving around a lot more than usual: several days 9. Thoughts that you would be better off or of hurting yourself in some way: not at all Total score: 7 Depression Screening Interpretation: Positive (Restarted back on buspirone for 7.5 mg 1 tablet twice a day, and will see him back for follow-up in the) Depression Screening Follow-up: Existing condition, New Medication prescribed and Follow-up Visit Requested Depression Screening Done: Yes Source: Developed by Drs. Shorty Shoemaker, Devi Webber, Edgardo Jernigan and colleagues, with an educational john from [employer]. Thrive Questionnaire Date Thrive assessed: 10/05/23 I am a: Patient What is your living situation today?: I have a place to live, but I am worried about losing it in the future Within the past 12 months, did the food you bought not last and you didn't have the money to get more?: Never true Within the past 12 months, did you worry whether your food would run out before you got money to buy more?: Never true Do you have trouble paying for medicines?: No Do you have trouble getting transportation to medical appointments?: No Do you have trouble paying your heating and electricity bill?: No Do you have trouble taking care of your child, family member or friend?: No Do you have trouble with day-to-day activities such as bathing, preparing meals, shopping, managing finances, etc.?: No Are you currently unemployed and looking for a job?: No Are you interested in more education?: Yes Please select the resources that you would like help with: Paying for medicine and Utilities Currently or been in a relationship where the following occur: I choose not to answer THRIVE Score: 1 AUDIT C Alcohol Use Questionnaire (AUDIT-C) 1. How often do you have a drink containing alcohol?: Never Total Score: 0 ARLEY-7 AMB Questionnaire ARLEY-7 Date ARLEY - 7 assessed: 03/19/24 Feeling nervous, anxious, or on edge: 1 = Several days Not being able to stop or control worryin = Several days Worrying too much about different things: 2 = More than half the days Trouble relaxin = More than half the days Being so restless that it is hard to sit still: 1 = Several days Becoming easily annoyed or irritable: 0 = Not at all Feeling afraid as if something awful might happen: 1 = Several days Total ARLEY-7 score (0-4 normal; 5-9 mild; 10-14 moderate; 15-21 severe): 8 Source: Developed by Drs. Shorty Shoemaker, Devi Webber, Edgardo Jernigan and colleagues, with an educational john from [employer]. ARLEY-7 Assessment Billing ARLEY-7 Assessment Tool: ARLEY-7 Assessment 07259 Review of Systems Const Reports no additional complaints ENT Reports no additional complaints Card Reports no additional complaints Resp Reports no additional complaints GI Denies abdominal pain, Denies melena, Denies bloating, Denies change in bowel habits and Denies heartburn Reports no additional complaints Musc Reports no additional complaints Neuro Reports no additional complaints Psych Reports no additional complaints Endo Reports no additional complaints Esvin/Lymph Reports no additional complaints Physical exam (Primary Care) Vital Signs: Last Vital Signs Pulse 85 03/19/24 12:08 BP 118/80 03/19/24 12:08 Pulse Ox 98 03/19/24 12:08 Oxygen Delivery Method Room Air 03/19/24 12:08 BMI result Body Mass Index 33.1 Tobacco/Smoking Status: Tobacco use Status Tobacco use date assessed 03/19/24 03/19/24 12:11 Patient Tobacco Use Status Former Tobacco user 03/19/24 12:11 e-Cigarette/Vaping Use Never Used 03/19/24 12:11 PHQ-9: PHQ-9 Score PHQ-9: Total score 7 03/19/24 13:01 Depression Screening Interpretation: Positive (Restarted back on buspirone for 7.5 mg 1 tablet twice a day, and will see him back for follow-up in the) Depression Screening Follow-up: Existing condition, New Medication prescribed and Follow-up Visit Requested Thrive Assessment: Date of Thrive Assessment Date Thrive assessed 10/05/23 03/19/24 12:11 Currently or been in a relationship where the following occur: I choose not to answer Const General: no acute distress and alert Orientation/consciousness: patient oriented x3 HENMT Head: Yes normocephalic Ears: external ears normal General nose exam: Normal external nose present Face and sinus: Yes face symmetric Mouth: Normal oral and palatal mucosa present, oropharynx normal and moist mucous membranes Eyes General: appearance normal, both eyes and all related structures Neck Neck: Yes full ROM, Yes no lymphadenopathy and Yes supple Thyroid: Thyroid normal Resp Effort & Inspection: normal respiratory effort and able to speak in complete sentences Auscultation: clear to auscultation bilaterally Cardio Rate: regular rate Rhythm: regular rhythm Heart sounds: S1 normal heart sound present and S2 normal heart sound present GI Palpation (GI): Soft to palpation, nontender, no guarding and no masses Auscultation: normal bowel sounds General: Yes no CVA tenderness Back/Spine/Pelvis Back: no CVA tenderness and No back tenderness Skin General skin exam: no rashes or lesions noted Neuro General: patient oriented x3, gait normal, moves all extremities, Normal light touch and pain sensation, no focal motor deficits and CN's II-XI intact bilaterally Cognition (Neuro): normal cognition Gait exam (Neuro): Normal gait present Motor exam (neuro): 5/5 motor strength present throughout Extrem General: Yes normal to inspection, Yes full ROM, Yes no joint enlargement, Yes no pedal edema and Yes normal gait Psych Appearance: grossly normal and well kempt Mental Status: mental status grossly normal Speech and movement: Normal speech and movement present Affect: normal affect Attitude: cooperative Thought process: Normal thought process present Thought content: Normal thought content present Coding Level of Care Code Est Pt Level 4 (07016) Diagnoses Hypertension, unspecified type I10 Hypertension type: unspecified Anxiety with depression F41.8 Additional Codes ARLEY-7 Assessment Billing - ARLEY-7 Assessment Tool: ARLEY-7 Assessment 69352 ([id number]) Assessment & Plan Assessment & Plan (1) Hypertension: Code(s): I10 - Essential (primary) hypertension Category: Medical Qualifiers: Hypertension type: unspecified Qualified Code(s): I10 - Essential (primary) hypertension Plan: Blood pressure at goal of less than 130/80. Continue with current medication. Reinforced importance of following a low sodium diet, getting regular exercise, and lowering stress levels. His echocardiogram and Holter monitor all came back with normal findings (2) Anxiety with depression: Code(s): F41.8 - Other specified anxiety disorders Category: Medical Plan: Restarted back on buspirone 7.5 mg to take 1 tablet twice a day . Patient reminded not to abruptly stop medications without consulting with us. Declines referral for therapy. Will see him back for follow-up in 1 month Plan FMLA application completed today and given back to patient Medications: New buspirone 7.5 mg PO BID 60 tabs 1RF F41.1 - Generalized anxiety disorder Refilled amlodipine 10 mg PO DAILY 90 tabs 4RF
[2024-03-19 12:08] VITALS: BP 118/80; PULSE 85; O2SAT 98; BMI 33.1
== END 2024-03-19 13:04 | disposition home or self-care (01) ==
PROVIDERS: PCP Internal Medicine; Visit Provider Internal Medicine
DX: I10 Essential (primary) hypertension (principal); F41.8 Other specified anxiety disorders

== ENCOUNTER → 2024-03-19 11:30 | Outpatient (BNVA) | payer OTHER, SELFPAY | PROVIDERS: PCP Internal Medicine; Visit Provider Internal Medicine | DX: I10 Essential (primary) hypertension (principal); F32.A Depression, unspecified; F41.8 Other specified anxiety disorders; Z79.899 Other long term (current) drug therapy | CPT/HCPCS: 96127; 99212 ==

== ENCOUNTER 2024-03-30 08:02 | Outpatient (REF) | payer OTHER, SELFPAY | END 2024-03-30 08:03 | disposition home or self-care (01) | LOC: HO.US 08:02 | PROVIDERS: PCP Nurse Practitioner Family; Visit Provider Nurse Practitioner Family | DX: Z13.89 Encounter for screening for other disorder (principal) ==

== ENCOUNTER 2024-04-20 10:42 | Outpatient (REF) | payer OTHER, SELFPAY | END 2024-04-20 10:43 | disposition home or self-care (01) | LOC: HO.US 10:42 | PROVIDERS: PCP Internal Medicine; Visit Provider Nurse Practitioner Family | DX: K76.0 Fatty (change of) liver, not elsewhere classified (principal) ==

== ENCOUNTER → 2024-04-20 10:45 | Outpatient (BNV) | payer OTHER, SELFPAY | PROVIDERS: PCP Internal Medicine; Visit Provider Radiology Diagnostic Radiology | DX: K76.0 Fatty (change of) liver, not elsewhere classified (principal) | CPT/HCPCS: 76705 ==

== ENCOUNTER 2024-05-10 13:18 | Outpatient (AMB) | payer OTHER, SELFPAY ==
[2024-05-10 13:49] VITALS: BP 124/72; PULSE 85; RESP 16; TEMP 37.1; O2SAT 97; BMI 32.2
--- NOTE | 2024-05-10 13:49 | A.OFFPC_ITS ---
Vital Signs 05/10/24 13:49 Height 5 ft 8 in Weight 212 lb BMI 32.2 BP 124/72 Blood Pressure Location Lt brachial Position Sitting Respiration 16 Pulse 85 Pulse Source Pulse Oximeter Temp 98.8 F Temp Source Oral Pulse Oximetry (%) 97 Oxygen Delivery Method Room Air Intake Visit Reasons: 1 month follow up Captain/Airline Pilot Required: Yes Captain/Airline Pilot Name: Kaci [id number] Information Interpreted: clinical only Allergies No Known Allergies Allergy (Verified 05/10/24 14:09) Medication List - Last Reconciled 05/10/24 by Rebeca Mcghee MD amlodipine 10 mg PO DAILY buspirone 7.5 mg PO ONCE cholecalciferol (vitamin D3) 50 mcg PO DAILY twgoya-qilurksv-gzeyxzz 24,000-76,000 -120,000 unit (Creon) 1 cap PO QID sennosides (Natural Senna Laxative) 17.2 mg (2 x 8.6 mg) PO BEDTIME Tobacco use date assessed: 03/19/24 Dental Screening Dental Screen Date: 03/19/24 HPI 1 month follow up HPI Details 53-year-old male with hypertension and d epression with anxiety disorder, here today for follow-up. He has been compliant with taking his medications, but has decreased his buspirone dose 7.5 mg taken in a.m. only as the evening dose was giving him insomnia. It has been helping control his anxiety depression symptoms. Blood pressure stable controlled on amlodipine 10 mg daily. Patient reports however that he is went to the ER three days ago as he was having intermittent rapid heartbeats. This was accompanied by some shortness of breath but no chest pain. Patient states that workup all came back negative. He however was told to follow-up and schedule an appointment with Dr. Skinner light equipment operator for further evaluation management. He states that he they called his office and he was told that they would call him back for an appointment. At present he has been feeling well, with no new complaints. FORMERLY [facility], 1928–1983 Medical History Intermittent palpitations Anxiety with depression BPPV (benign paroxysmal positional vertigo) Hepatic steatosis Pancreatic insufficiency Kidney stone GERD (gastroesophageal reflux disease) Hypertension Surgical History Hx of colonoscopy Family History Father No problems noted. Mother Alzheimer disease Social History Housing: Apartment Alcohol intake: never Patient Tobacco Use Status: Former Tobacco user e-Cigarette/Vaping Use: Never Used Second Hand Smoke Exposure: No Current occupational status: employed Cognitive needs: No Hearing needs: No Vision needs: No Questionnaire PHQ-9 Over the last 2 weeks, how often have you been bothered by any of the following problems? 1. Little interest or pleasure in doing things: not at all 2. Feeling down, depressed, or hopeless: not at all 3. Trouble falling or staying asleep, or sleeping too much: not at all 4. Feeling tired or having little energy: not at all 5. Poor appetite or overeating: not at all 6. Feeling bad about yourself - or that you are a failure or have let yourself or your family down: not at all 7. Trouble concentrating on things, such as reading the newspaper or watching television: not at all 8. Moving or speaking so slowly that other people could have noticed. Or the opposite - being so fidgety or restless that you have been moving around a lot more than usual: not at all 9. Thoughts that you would be better off or of hurting yourself in some way: not at all Total score: 0 Depression Screening Interpretation: Positive (Depression symptoms controlled with buspirone for 7.5 mg once a day in a.m.) Depression Screening Follow-up: Existing condition and In treatment Depression Screening Done: Yes 30682 - PHQ-9 Billing: Yes Source: Developed by Drs. Shorty Shoemaker, Devi Webber, Edgardo Jernigan and colleagues, with an educational john from [facility]. Thrive Questionnaire Date Thrive assessed: 03/19/24 I am a: Patient What is your living situation today?: I have a place to live, but I am worried about losing it in the future Within the past 12 months, did the food you bought not last and you didn't have the money to get more?: Never true Within the past 12 months, did you worry whether your food would run out before you got money to buy more?: Never true Do you have trouble paying for medicines?: No Do you have trouble getting transportation to medical appointments?: No Do you have trouble paying your heating and electricity bill?: No Do you have trouble taking care of your child, family member or friend?: No Do you have trouble with day-to-day activities such as bathing, preparing meals, shopping, managing finances, etc.?: No Are you currently unemployed and looking for a job?: No Are you interested in more education?: Yes Currently or been in a relationship where the following occur: I choose not to answer THRIVE Score: 1 ARLEY-7 AMB Questionnaire ARLEY-7 Date ARLEY - 7 assessed: 05/10/24 Feeling nervous, anxious, or on edge: 0 = Not at all Not being able to stop or control worryin = Not at all Worrying too much about different things: 0 = Not at all Trouble relaxin = Not at all Being so restless that it is hard to sit still: 0 = Not at all Becoming easily annoyed or irritable: 0 = Not at all Feeling afraid as if something awful might happen: 0 = Not at all Total ARLEY-7 score (0-4 normal; 5-9 mild; 10-14 moderate; 15-21 severe): 0 Source: Developed by Drs. Shorty Shoemaker, Devi Webber, Edgardo Jernigan and colleagues, with an educational john from [facility]. ARLEY-7 Assessment Billing ARLEY-7 Assessment Tool: ARLEY-7 Assessment 73460 Review of Systems Const Reports no additional complaints Eyes Reports blurry vision (Overdue for eye exam) ENT Reports no additional complaints Card Reports as per HPI Resp Reports no additional complaints GI Denies abdominal pain, Denies melena, Denies bloating, Denies change in bowel habits and Denies heartburn Reports no additional complaints Musc Reports no additional complaints Neuro Reports no additional complaints Psych Reports no additional complaints Endo Reports no additional complaints Esvin/Lymph Reports no additional complaints Physical exam (Primary Care) Vital Signs: Last Vital Signs Temp 98.8 F 05/10/24 13:49 Pulse 85 05/10/24 13:49 Resp 16 05/10/24 13:49 BP 124/72 05/10/24 13:49 Pulse Ox 97 05/10/24 13:49 Oxygen Delivery Method Room Air 05/10/24 13:49 BMI result Body Mass Index 32.2 Tobacco/Smoking Status: Tobacco use Status Tobacco use date assessed 03/19/24 05/10/24 13:54 Patient Tobacco Use Status Former Tobacco user 05/10/24 13:54 e-Cigarette/Vaping Use Never Used 05/10/24 13:54 Depression Screening Interpretation: Positive (Depression symptoms controlled with buspirone for 7.5 mg once a day in a.m.) Depression Screening Follow-up: Existing condition and In treatment Thrive Assessment: Date of Thrive Assessment Date Thrive assessed 03/19/24 05/10/24 13:54 Currently or been in a relationship where the following occur: I choose not to answer Const General: no acute distress and alert Orientation/consciousness: patient oriented x3 HENMT Head: Yes normocephalic Ears: external ears normal General nose exam: Normal external nose present Face and sinus: Yes face symmetric Mouth: Normal oral and palatal mucosa present, oropharynx normal and moist mucous membranes Eyes General: appearance normal, both eyes and all related structures Neck Neck: Yes full ROM, Yes no lymphadenopathy and Yes supple Resp Effort & Inspection: normal respiratory effort and able to speak in complete sentences Auscultation: clear to auscultation bilaterally Cardio Rate: regular rate Rhythm: regular rhythm Heart sounds: S1 normal heart sound present and S2 normal heart sound present GI Palpation (GI): Soft to palpation, nontender, no guarding and no masses Auscultation: normal bowel sounds Skin General skin exam: no rashes or lesions noted Neuro General: patient oriented x3, gait normal, moves all extremities, Normal light touch and pain sensation, no focal motor deficits and CN's II-XI intact bilaterally Cognition (Neuro): normal cognition Gait exam (Neuro): Normal gait present Motor exam (neuro): 5/5 motor strength present throughout Extrem General: Yes normal to inspection, Yes full ROM, Yes no joint enlargement, Yes no pedal edema and Yes normal gait Psych Appearance: grossly normal and well kempt Mental Status: mental status grossly normal Speech and movement: Normal speech and movement present Affect: normal affect Attitude: cooperative Thought process: Normal thought process present Thought content: Normal thought content present Results Reviewed Results Reviewed: Name: Calvin Alvarez Age/Sex: 53/M : 1970 Unit#: [id number] Attend Dr: Dulce Maria Chong [facility] Re03/02/24 Status: DEP REF Location: [facility] Disch: SPEC : [id number] TOM: 03/02/24 STATUS: COMP REQ : [id number] RECD: 03/02/[address]: Dulce Maria Chong [facility] COMP: 03/02/24 ENTERED: 03/02/[address]: Alexander Lee [facility] ORDERED: Hgb A1c Test Result Flag Reference A1c % 5.3 <6.0 % Hemoglobin A1C Reference Range Adults: 4.8 - 6.0 % Non diabetic: < 6.0 % Goal: < 7.0 % Additional Action Suggested: > 8.0 % Note: Hemoglobin A1c results are invalid for patients with abnormal amounts of HbF. Blood transfusions may impact the HbA1c concentration in the patient sample. Est. Avg. Gluc 105 mg/dL eAG = Estimated average glucose which is %A1C expressed as average glucose, using the formula of the I1B-[id number] Average Glucose study (ADAG), Diabetes Care, Vol.31,#8, 2007 Coding Level of Care Code Est Pt Level 4 (94029) Diagnoses Hypertension, unspecified type I10 Hypertension type: unspecified Intermittent palpitations R00.2 Anxiety with depression F41.8 Additional Codes PHQ-9 - 29450 - PHQ-9 Billing: Yes ([id number]) ARLEY-7 Assessment Billing - ARLEY-7 Assessment Tool: ARLEY-7 Assessment 93275 ([id number]) Assessment & Plan Assessment & Plan (1) Hypertension: Code(s): I10 - Essential (primary) hypertension Category: Medical Qualifiers: Hypertension type: unspecified Qualified Code(s): I10 - Essential (primary) hypertension Plan: Blood pressure at goal of less than 130/80. Continue with current medication. Reinforced importance of following a low sodium diet, getting regular exercise, and lowering stress levels. (2) Intermittent palpitations: Code(s): R00.2 - Palpitations Category: Medical Plan: Patient seen at the ER 3 days ago, scheduled referral to see Dr. Skinner, per patient request for further evaluation and management. Advised to cut back on caffeine intake (3) Anxiety with depression: Code(s): F41.8 - Other specified anxiety disorders Category: Medical Plan: Doing well on just taking buspirone 7.5 mg once a day in a.m.. Will continue with current dose Orders: Orders Alanine Aminotransferase 09/21/24 F41.8 - Other specified anxiety disorders, I10 - Essential (primary) hypertension, R00.2 - Palpitations, Z13.1 - Encounter for screening for diabetes mellitus, Z13.220 - Encounter for screening for lipoid disorders Aspartate Amino Transferase 09/21/24 F41.8 - Other specified anxiety disorders, I10 - Essential (primary) hypertension, R00.2 - Palpitations, Z13.1 - Encounter for screening for diabetes mellitus, Z13.220 - Encounter for screening for lipoid disorders Basic Metabolic Panel Fasting 09/21/24 F41.8 - Other specified anxiety disorders, I10 - Essential (primary) hypertension, R00.2 - Palpitations, Z13.1 - Encounter for screening for diabetes mellitus, Z13.220 - Encounter for screening for lipoid disorders TSH reflex Free T4 09/21/24 F41.8 - Other specified anxiety disorders, I10 - Essential (primary) hypertension, R00.2 - Palpitations, Z13.1 - Encounter for screening for diabetes mellitus, Z13.220 - Encounter for screening for lipoid disorders Lipid Panel 09/21/24 F41.8 - Other specified anxiety disorders, I10 - Essential (primary) hypertension, R00.2 - Palpitations, Z13.1 - Encounter for screening for diabetes mellitus, Z13.220 - Encounter for screening for lipoid disorders Referrals Cardiology Referral I10 - Essential (primary) hypertension, R00.2 - Palpitations, R01.1 - Cardiac murmur, unspecified Medications: Changed From buspirone 7.5 mg PO BID 60 tabs 1RF F41.1 - Generalized anxiety disorder To buspirone 7.5 mg PO ONCE F41.1 - Generalized anxiety disorder
--- OUTSIDE RECORDS SUMMARY | 2024-05-10 15:52 | XMS_ITS | Encounter Summary ---
Author Organization [facility] Address [address] [place] [address] Care Team Providers Care Supervisor Twisting Department Name Role Phone Rebeca Mcghee MD Primary Care Provider Reason for Visit * Reason Comments Palpitations X1 HOUR Encounter Details Date Type Department Care Team (Late st Contact Info) Description 05/07/2024 12:27 AM EST - 05/07/2024 1:56 AM EST Emergency [facility] Emergency [address] [place] [address] Palpitations (Primary Dx) Discharge Disposition: Home or Self Care Social History Tobacco Use Types Packs/Day Years Used Date Smoking Tobacco: Former Cigarettes Smokeless Tobacco: Never Sex and Gender Information Value Date Recorded Sex Assigned at Male 02/29/2024 1:00 PM EST Legal Sex Male 8:25 AM EST Gender Identity Male 02/29/2024 1:00 PM EST Sexual Orientation Straight 02/29/2024 1: 00 PM EST documented as of this encounter Last Filed Vital Signs Vital Sign Reading Time Taken Comments Blood Pressure 112/77 05/07/2024 1:06 AM EST Pulse 66 05/07/2024 1:06 AM EST Temperature 36.6 ??C (97.9 ??F) 05/06/2024 11:[address] Respiratory Rate 18 05/07/2024 1:06 AM EST Oxygen Saturation 100% 05/07/2024 1:06 AM EST Inhaled Oxygen Concentration - - Weight 95.3 kg (210 lb) 05/06/2024 4:35 PM EST Height 177.8 cm (5' 10 ) 05/06/2024 4:35 PM EST Body Mass Index 30.13 05/06/2024 4:35 PM EST documented in this encounter Functional Status * Are you deaf or do you have serious difficulty hearing? Answer Date of Assessment Author No 02/29/2024 4:16 PM EST Marcia Sifuentes RN * Are you blind or do you have serious difficulty seeing, even when wearing glasses? Answer Date of Assessment Author No 02/29/2024 4:16 PM EST Marcia Sifuentes RN * Do you have serious difficulty walking or climbing stairs? Answer Date of Assessment Author No 02/29/2024 4:16 PM Marcia Givens RN * Do you have serious difficulty dressing or bathing? Answer Date of Assessment Author No 02/29/2024 4:16 PM Marcia Givens RN * Because of a physical, mental, or emotional condition, do you have serious difficulty doing errandsalone such as visiting the doctor? Answer Date of Assessment Author No 02/29/2024 4:16 PM Marcia Givens RN documented as of this encounter Mental Status * Because of a physical, mental, or emotional condition, do you have serious difficulty concentrating, remembering, or making decisions? (5 years old or older) Answer Entry Date Author No 02/29/2024 4:16 PM Marcia Givens RN documented in this encounter Discharge Instructions * Discharge Instructions* WENDY Qureshi - 05/07/2024 1:43 AM EST Your lab work, including heart enzymes, EKG and chest x-ray today did not show any concerning findings Follow-up with your primary care provider at your previously scheduled appointment as discussed You have been given a referral to cardiology, call to schedule follow-up appointment for further workup and management of your palpitations as we discussed Make sure you plenty rest and drink plenty fluids I hope you feel better Return for any new or worsening symptoms as we discussed Follow up with your primary provider. Call tomorrow for appointment. Return to Emergency Department if symptoms worsen, don't improve, or any other concern. Get well soon! Thank you for coming to the [facility] Emergency Department today. Our entire team works together to provide you with the best care possible. Examination and treatment you received in the emergency department has been rendered on an EMERGENCY basis only. It is not intended to be a substitute for or an effort to provide complete medical care. You should follow-up with your primary care provider. Please report to your physician any new or remaining problems, because it is impossible to recognize and treat all elements of injury or illness in a single emergency department visit. In the event that you're unable to obtain a followup appointment in a timely fashion, OR you are not getting any better, OR you are getting worse, OR you develop any symptoms of concern, please return here immediately for further evaluation. The emergency department is open 24 hours a day, 7 days aweek. Your discharge report is based on information that was available when you were in the emergency department. * Attachments The following attachments cannot be sent through Care Everywhere. * Palpitations (Slovak) documented in this encounter Discharge Disposition Disposition Code Departure Means Destination Comment s Home or Self Care documented in this encounter Progress Notes * Farrah Quiñones RN - 05/06/2024 4:37 PM EST Mid back pain pt reports started in the gym . He felt palpations and also reports has had left chest pain in the past even at rest . Not having cp at this time . Cp when he has it is like a stabbing pain. So is the pain in his back. No sob at this time * WENDY Qureshi - 05/06/2024 4:26 PM EST Emergency Medicine Note Patient Name: Calvin Smith Initial Evaluation: 05/06/2024 : 1970 Patient's PCP: Rebeca Mcghee MD Emergency Physician: WENDY Qureshi History of Present Illness Chief Complaint: Chief Complaint Patient presents with Palpitations X1 HOUR HPI: Is a 53-year-old male with a past medical history of fatty liver disease, anxiety presenting for evaluations of palpitations. He states that began roughly 4 PM after exercising today. He states he did have some low back pain shortly thereafter, palpitations have resolved. He is not having any chest pain or back pain at this time. He does not feel weak or dizzy. He has no extremity weakness numbness or tingling. States that he has had these palpitations in the past before, seen his primary care doctor who placed him on a Holter monitor which was normal. He has not yet formally seen a photoengraving sketch maker. Denies any fevers or chills. No cough or shortness of breath. History obtained with the assistance of video training and development specialist ROS: I have performed a ROS with the pertinent positives and negatives documented in the history ofpresent illness. Previous History Past Medical History: Diagnosis Date Anxiety Fatty liver History reviewed. No pertinent surgical history. Social History Tobacco Use Smoking status: Former Types: Cigarettes Smokeless tobacco: Never No family history on file. has No Known Allergies. No current facility-administered medications on file prior to encounter. Current Outpatient Medications on File Prior to Encounter Medication Sig Dispense Refill hydrOXYzine HCL (ATARAX) 25 mg tablet Take 1 tablet (25 mg total) by mouth every 6 (six) hours for 3 days. 12 tablet 0 Physical Exam ED Triage Vitals Temp Heart Rate Resp BP 05/06/24 1635 05/06/24 1635 05/06/24 2039 05/06/24 1635 37.1 ??C (98.8 ??F) 90 18 (!) 123/93 SpO2 Temp Source Heart Rate Source Patient Position 05/06/24 1635 05/06/24 1635 -- -- 100 % Oral BP Location FiO2 (%) -- -- General: Well-appearing, well nourished, in no acute distress HEENT: PERRL, EOMI, external ears and nose appear unremarkable, airway is patent Neck: Supple, full range of motion Chest: Clear to auscultation; no evidence of respiratory distress Circulatory: RRR, extremities well perfused Abdomen: Non-distended, Non-Tender Extremities: Normal ROM, No edema Skin: Warm and dry Neuro: Alert and oriented, no focal deficits Results Labs Reviewed CBC WITH AUTO DIFFERENTIAL - Abnormal Result Value WBC 10.0 RBC 5.40 Hemoglobin 16.0 Hematocrit 48.5 MCV 89.8 MCH 29.6 MCHC 33.0 RDW 13.2 Platelets 165 MPV 11.4 (*) NRBC 0.0 NRBC Absolute 0.00 Neutrophils Relative 75.9 Lymphocytes Relative 16.9 Monocytes Relative 5.8 Eosinophils Relative 0.7 Basophils Relative 0.5 Immature Granulocytes Relative 0.2 Neutrophils Absolute 7.61 (*) Lymphocytes Absolute 1.70 Monocytes Absolute 0.58 Eosinophils Absolute 0.07 Basophils Absolute 0.05 Immature Granulocytes Absolute 0.02 TROPONIN I HIGH SENSITIVITY - Normal High Sensitivity Troponin I 5 Narrative: High levels of biotin in samples may falsely decrease hsTroponin values. Use caution when interpreting hsTroponin results in patients taking biotin who exhibit renal impairment (eGFR <60) or in patients taking more than 20 mg/day of biotin. TROPONIN I HIGH SENSITIVITY - Normal High Sensitivity Troponin I 4 Narrative: High levels of biotin in samples may falsely decrease hsTroponin values. Use caution when interpreting hsTroponin results in patients taking biotin who exhibit renal impairment (eGFR <60) or in patients taking more than 20 mg/day of biotin. COMPREHENSIVE METABOLIC PANEL - Normal Sodium 138 Potassium 4.3 Chloride 107 CO2 28 Anion Gap 3 Glucose 99 BUN 16 Creatinine 0.91 eGFR 100 BUN/Creatinine Ratio 17.6 Calcium 9.0 AST (SGOT) 22 ALT (SGPT) 28 Alkaline Phosphatase 83 Total Protein 6.8 Albumin 3.6 Total Bilirubin 0.9 LIPASE - Normal Lipase 63 MAGNESIUM - Normal Magnesium 2.3 CBC AND DIFFERENTIAL Narrative: The following orders were created for panel order CBC and differential. Procedure Abnormality Status --------- ------ CBC auto differential[[id number]] Abnormal Final result Please view results for these tests on the individual orders. Abnormal Labs Reviewed CBC WITH AUTO DIFFERENTIAL - Abnormal; Notable for the following components: Result Value MPV 11.4 (*) Neutrophils Absolute 7.61 (*) All other components within normal limits XR Chest 2 Views (Results Pending) I have discussed the incidental/abnormal imaging and/or lab abnormalities with the patient and haveinstructed them the need for further evaluation and workup with their primary care doctor. I have provided the patient with a paper copy of the abnormality. The laboratory results, imaging results and other diagnostic exam results were reviewed in the EMR. EKG Interpretation Critical Care Time None ? Medical Decision Making Medications - No data to display 05/07/2024 12:51 AM patient seen and evaluated, vitals reviewed he is afebrile not tachycardic or hypoxic. Physical exam is unremarkable. Labs are prior to my evaluation reviewed and reassuring, including troponins there is no delta. EKG is nonischemic. Chest x-ray does not show any infiltrate or effusion. Will ambulate for O2 and heart rate and perform orthostatic vital signs. Anticipate if theseare normal he will be discharged home with cardiology referral and PCP follow-up. He is seeing his PCP this week related to his blood pressure. Clinical suspicion for any acute coronary syndrome, PE or aortic dissection. Low clinical suspicion for dehydration, electrolyte abnormality has been evaluated in is unremarkable. ED Course as of 05/07/24142May 07, 2024 014 Patient was able to ambulate without any significant tachycardia, tachypnea, increased respiratory effort or hypoxia. He is not orthostatic. He has not been tachycardic while in the emergency department. He will be discharged as previously planned to follow-up with his primary care provider, wi ll be given a referral to cardiology for further workup of his palpitations. This was discussed with the patient via video ice cream freezer, he is in agreement with plan. He will be seeing his primary care provider this week at a previously scheduled appointment. Strict return precautions have been discussed. He will be discharged at this time. [LQ] ED Course User Index [LQ] WENDY Qureshi Clinical Impressions as of 05/07/24142 Palpitations Procedures Procedures Diagnosis 1. Palpitations Disposition Discharge ED Prescriptions None Physician Attestation WENDY Qureshi 05/07/24 0052 WENDY Qureshi 05/07/24142 Cosigned by Sandeep Mckeon MD at 05/08/2024 3:27 AM EST Associated attestation - Sandeep Mckeon MD - 05/08/2024 3:27 AM EST The PA has seen, evaluated, and treated the patient. I, Dr. Mckeon, have reviewed the record and agree with the documentation as written, except as noted. Sandeep Mckeon MD documented in this encounter Plan of Treatment Not on file documented as of this encounter Procedures Procedure Name Priority Date/Time Associated Diagnosis Comments ECG ANNOTATED 05/08/2024 ECG ANNOTATED 05/08/2024 TROPONIN I HIGH SENSITIVITY STAT 05/06/2024 9:01 PM EST ECG 12-LEAD STAT 05/06/2024 8:52 PM EST XR CHEST 2 VIEWS STAT 05/06/2024 8:21 PM EST TROPONIN I HIGH SENSITIVITY STAT 05/06/2024 6:03 PM EST CBC WITH AUTO DIFFERENTIAL STAT 05/06/2024 6:03 PM EST CBC AND DIFFERENTIAL STAT 05/06/2024 6:03 PM EST MAGNESIUM STAT 05/06/2024 6:03 PM EST LIPASE STAT 05/06/2024 6:03 PM EST COMPREHENSIVE METABOLIC PANEL STAT 05/06/2024 6:03 PM EST ECG 12-LEAD STAT 05/06/2024 4:32 PM EST documented in this encounter Results * ECG-Annotated (05/08/2024) us Provider Onbase MD ECG ORDERABLES Final Result * ECG-Annotated (05/08/2024) us Provider Onbase MD ECG ORDERABLES Final Result * Troponin I high sensitivity (05/06/2024 9:01 PM EST) High Sensitivity Troponin I 4 <=79 ng/L LAB CHEMISTRY METHOD 05/06/2024 10:59 PM EST [facility] Blood Venous blood specimen / Unknown Venipuncture / Unknown 05/06/2024 9:01 PM EST 05/06/2024 10:33 PM EST [facility]ative [facility] - 05/06/2024 10:59 PM EST High levels of biotin in samples may falsely decrease hsTroponin values. ??Use caution when interpreting hsTroponin results in patients taking biotin who exhibit renal impairment (eGFR <60) or in patients taking more than 20 mg/day of biotin. Bautista Dodge DO LAB BLOOD ORDERABLES Final Res ult Performing Organization Address [facility]/ZIP Co de Phone Number [facility] ([facility]) [facility] [address] [place] [address], [place] [phone] * ECG 12 lead (05/06/2024 8:52 PM EST) Ventricular Rate ECG 74 BPM GEMUSE Atrial Rate 74 BPM GEMUSE P-R Interval 166 ms GEMUSE QRS Duration 92 ms GEMUSE Q-T Interval 376 ms GEMUSE QTc 417 ms GEMUSE P Wave Hubertus 67 degrees GEMUSE R Hubertus 55 degrees GEMUSE T Hubertus 32 degrees GEMUSE ECG Interpretation Normal sinus rhythm Normal ECG When compared with ECG of 06-MAY-2024 16:32, (unconfirmed) No significant change was found Confirmed by ALEX TUCKER ([id number]) on 05/08/2024 8:04:01 AM GEMUSE 05/06/2024 8:52 PM EST 05/08/2024 8:04 AM EST Bautista Dodge DO ECG ORDERABLES Final Result GEMUSE * XR Chest 2 Views (05/06/2024 8:21 PM EST) Anatomical Region Laterality Modality Body Radiographic Rocio ging 05/07/2024 9:22 AM EST Impressions 05/07/2024 9:22 AM EST Normal chest radiographs. -------- FINAL REPORT -------- Dictated By: Dennis Aguirre Dictated Date: 05/07/2024 09:22 ET Assigned Physician: Dennis Aguirre Reviewed and Electronically Signed By: Dennis Aguirre Signed Date: 05/07/2024 09:22 ET Workstation ID: [id number] Transcribed By: Self Edit Transcribed Date: 05/07/2024 09:22 ET Narrative 05/07/2024 9:22 AM EST PROCEDURE: PA and lateral radiographs of the chest. HISTORY: chest pain. COMPARISON: 03/13/2024. FINDINGS: The heart, mediastinum, lungs, pleural spaces, and bony thorax are normal. Procedure Note Dennis Aguirre MD - 05/07/2024 PROCEDURE: PA and lateral radiographs of the chest. HISTORY: chest pain. COMPARISON: 03/13/2024. FINDINGS: The heart, mediastinum, lungs, pleural spaces, and bony thorax arenormal. IMPRESSION: Normal chest radiographs. -------- FINAL REPORT -------- Dictated By: Dennis Aguirre Dictated Date: 05/07/2024 09:22 ET Assigned Physician: Dennis Aguirre Reviewed and Electronically Signed By: Dennis Aguirre Signed Date: 05/07/2024 09:22 ET Workstation ID: [id number] Transcribed By: Self Edit Transcribed Date: 05/07/2024 09:22 ET Bautista Dodge DO IMG XR PROCEDURES Final Result * (ABNORMAL) CBC auto differential (05/06/2024 6:03 PM EST) WBC 10.0 4.8 - 10.8 K/[facility] LAB HEMETOLOGY METHOD 05/06/2024 6:14 PM EST [facility] RBC 5.40 4.50 - 5.50 M/mcL LAB HEMETOLOGY METHOD 05/06/2024 6:14 PM EST [facility] Hemoglobin 16.0 13.5 - 17.5 g/dL LAB HEMETOLOGY METHOD 05/06/2024 6:14 PM EST [facility] Hematocrit 48.5 42.0 - 54.0 % LAB HEMETOLOGY METHOD 05/06/2024 6:14 PM [facility] MCV 89.8 79.0 - 98.0 FL LAB HEMETOLOGY METHOD 05/06/2024 6:14 PM [facility] MCH 29.6 27.0 - 32.0 pcg LAB HEMETOLOGY METHOD 05/06/2024 6:14 PM [facility] MCHC 33.0 32.0 - 37.0 g/dL LAB HEMETOLOGY METHOD 05/06/2024 6:14 PM [facility] RDW 13.2 11.0 - 15.0 % LAB HEMETOLOGY METHOD 05/06/2024 6:14 PM [facility] Platelets 165 130 - 400 K/mcL LAB HEMETOLOGY METHOD 05/06/2024 6:14 PM [facility] MPV 11.4(H) 7.0 - 11.0 FL LAB HEMETOLOGY METHOD 05/06/2024 6:14 PM [facility] NRBC 0.0 <1.0 % LAB HEMETOLOGY METHOD 05/06/2024 6:14 PM [facility] NRBC Absolute 0.00 <0.10 K/mcL LAB HEMETOLOGY METHOD 05/06/2024 6:14 PM [facility] Neutrophils Relative 75.9 % LAB HEMETOLOGY METHOD 05/06/2024 6:14 PM [facility] Lymphocytes Relative 16.9 % LAB HEMETOLOGY METHOD 05/06/2024 6:14 PM [facility] Monocytes Relative 5.8 % LAB HEMETOLOGY METHOD 05/06/2024 6:14 PM [facility] Eosinophils Relative 0.7 % LAB HEMETOLOGY METHOD 05/06/2024 6:14 PM [facility] Basophils Relative 0.5 % LAB HEMETOLOGY METHOD 05/06/2024 6:14 PM EST [facility] Immature Granulocytes Relative 0.2 % LAB HEMETOLOGY METHOD 05/06/2024 6:14 PM [facility] Neutrophils Absolute 7.61(H) 1.50 - 7.00 K/mcL LAB HEMETOLOGY METHOD 05/06/2024 6:14 PM EST [facility] Lymphocytes Absolute 1.70 1.00 - 5.00 K/mcL LAB HEMETOLOGY METHOD 05/06/2024 6:14 PM EST [facility] Monocytes Absolute 0.58 0.20 - 1.00 K/mcL LAB HEMETOLOGY METHOD 05/06/2024 6:14 PM EST [facility] Eosinophils Absolute 0.07 0.00 - 0.50 K/mcL LAB HEMETOLOGY METHOD 05/06/2024 6:14 PM EST [facility] Basophils Absolute 0.05 0.00 - 0.20 K/mcL LAB HEMETOLOGY METHOD 05/06/2024 6:14 PM EST [facility] Immature Granulocytes Absolute 0.02 0.00 - 0.03 K/mcL LAB HEMETOLOGY METHOD 05/06/2024 6:14 PM EST [facility] Blood Venous blood specimen / Unknown Venipuncture / Unknown 05/06/2024 6:03 PM EST 05/06/2024 6:09 PM EST us Bautista Dodge DO LAB BLOOD ORDERABLES Final Res ult [facility] [address] [place] [address], * Magnesium (05/06/2024 6:03 PM EST) Magnesium 2.3 1.9 - 2.6 mg/dL LAB CHEMISTRY METHOD 05/06/2024 6:32 PM EST [facility] Blood Venous blood specimen / Unknown Venipuncture / Unknown 05/06/2024 6:03 PM EST 05/06/2024 6:09 PM EST Bautista Dodge DO LAB BLOOD ORDERABLES Final Res ult Performing Organization Address [facility]/ZIP Co de Phone Number [facility] [address] [place] [address], [place] [phone] * Lipase (05/06/2024 6:03 PM EST) Lipase 63 13 - 75 unit/L LAB CHEMISTRY METHOD 05/06/2024 6:32 PM [facility] Blood Venous blood specimen / Unknown Venipuncture / Unknown 05/06/2024 6:03 PM EST 05/06/2024 6:09 PM EST Bautista Dodge DO LAB BLOOD ORDERABLES Final Res ult Performing Organization Address [facility]/ZIP Co de Phone Number [facility] [address] [place] [address], [place] [phone] * Comprehensive metabolic panel (05/06/2024 6:03 PM EST) Sodium 138 133 - 145 mmol/L LAB CHEMISTRY METHOD 05/06/2024 6:32 PM [facility] Potassium 4.3 3.5 - 5.5 mmol/L LAB CHEMISTRY METHOD 05/06/2024 6:32 PM [facility] Chloride 107 96 - 110 mmol/L LAB CHEMISTRY METHOD 05/06/2024 6:32 PM [facility] CO2 28 21 - 32 mmol/L LAB CHEMISTRY METHOD 05/06/2024 6:32 PM [facility] Anion Gap 3 3 - 11 LAB CHEMISTRY METHOD 05/06/2024 6:32 PM [facility] Glucose 99 70 - 100 mg/dL LAB CHEMISTRY METHOD 05/06/2024 6:32 PM [facility] BUN 16 5 - 25 mg/dL LAB CHEMISTRY METHOD 05/06/2024 6:32 PM [facility] Creatinine 0.91 0.70 - 1.30 mg/dL LAB CHEMISTRY METHOD 05/06/2024 6:32 PM [facility] eGFR 100 >=60 mL/min/1. 73m2 LAB CHEMISTRY METHOD 05/06/2024 6:32 PM [facility] Comment:Calculation based on the??Chronic Kidney Disease Epidemiology Collaboration (CKD-EPI) equation refit??without adjustment for race. BUN/Creatinine Ratio 17.6 LAB CHEMISTRY METHOD 05/06/2024 6:32 PM [facility] Calcium 9.0 8.5 - 10.5 mg/dL LAB CHEMISTRY METHOD 05/06/2024 6:32 PM [facility] AST (SGOT) 22 10 - 42 unit/L LAB CHEMISTRY METHOD 05/06/2024 6:32 PM [facility] ALT (SGPT) 28 10 - 60 unit/L LAB CHEMISTRY METHOD 05/06/2024 6:32 PM [facility] Alkaline Phosphatase 83 42 - 121 unit/L LAB CHEMISTRY METHOD 05/06/2024 6:32 PM [facility] Total Protein 6.8 6.0 - 8.0 g/dL LAB CHEMISTRY METHOD 05/06/2024 6:32 PM [facility] Albumin 3.6 3.2 - 5.0 g/dL LAB CHEMISTRY METHOD 05/06/2024 6:32 PM [facility] Total Bilirubin 0.9 0.0 - 1.4 mg/dL LAB CHEMISTRY METHOD 05/06/2024 6:32 PM [facility] Blood Venous blood specimen / Unknown Venipuncture / Unknown 05/06/2024 6:03 PM EST 05/06/2024 6:09 PM EST us Bautista Dodge DO LAB BLOOD ORDERABLES Final Res ult Performing Organization Address [facility] Co de Phone Number [facility] [address] [place] [address], [place] [phone] * Troponin I high sensitivity (05/06/2024 6:03 PM EST) [facility] High Sensitivity Troponin I 5 <=79 ng/L LAB CHEMISTRY METHOD 05/06/2024 6:32 PM EST [facility] Blood Venous blood specimen / Unknown Venipuncture / Unknown 05/06/2024 6:03 PM EST 05/06/2024 6:09 PM EST Narrative [facility] - 05/06/2024 6:32 PM EST High levels of biotin in samples may falsely decrease hsTroponin values. ??Use caution when interpreting hsTroponin results in patients taking biotin who exhibit renal impairment (eGFR <60) or in patients taking more than 20 mg/day of biotin. us Bautista Dodge DO LAB BLOOD ORDERABLES Final Res ult Performing Organization Address [facility] de Phone Number [facility] [address] [place] [address], [place] [phone] * ECG 12 lead (05/06/2024 4:32 PM EST) [facility] Ventricular Rate ECG 88 BPM GEMUSE Atrial Rate 88 BPM GEMUSE P-R Interval 154 ms GEMUSE QRS Duration 90 ms GEMUSE Q-T Interval 346 ms GEMUSE QTc 418 ms GEMUSE P Wave Hubertus 52 degrees GEMUSE R Hubertus 52 degrees GEMUSE T Hubertus 35 degrees GEMUSE ECG Interpretation Normal sinus rhythm Normal ECG When compared with ECG of 13-MAR-2024 11:21, No significant change was found Confirmed by ALEX TUCKER ([id number]) on 05/07/2024 9:27:55 PM GEMUSE 05/06/2024 4:32 PM EST 05/07/2024 9:27 PM EST us Bautista Dodge DO ECG ORDERABLES Final Result GEMUSE documented in this encounter Visit Diagnoses Diagnosis Palpitations- Primary documented in this encounter Care Teams Supervisor Twisting Department Relationship Specialty Start Date End Date Rebeca Mcghee MD [address] [place] [address] PCP - General Internal Medicine 03/13/24 documented as of this encounter
--- OUTSIDE RECORDS SUMMARY | 2024-05-10 15:52 | XMS_ITS | Encounter Summary ---
Author Organization [facility] Address [address] [place] [address] Care Team Providers Care Waitstaff Captain Name Role Phone Rebeca Mcghee MD Primary Care Provider Encounter Details Date Type Department Care Team (Late st Contact Info) Description 05/07/2024 Telephone [facility] Cardiology [place] [address] [place] [phone] Rebeca Mcghee MD [address] [place] [address] Social History Tobacco Use Types Packs/Day Years Used Date Smoking Tobacco: Former Cigarettes Smokeless Tobacco: Never Sex and Gender Information Value Date Recorded Sex Assigned at Male 02/29/2024 1:00 PM EST Legal Sex Male 8:25 AM EST Gender Identity Male 02/29/2024 1:00 PM EST Sexual Orientation Straight 02/29/2024 1: 00 PM EST documented as of this encounter Functional Status * Are you [...] Marcia Givens RN documented in this encounter Progress Notes * Shante Mckenna - 05/08/2024 10:38 AM EST This patient was seen in the [facility] ER on 05/07/24 for palpitations. None of our providers consulted on him. It does say in his discharge paperwork that he was given a referral to cardiology but I do not see the referral in the system. He has never seen provider here in the office so he will be a newpatient to the practice. * Jairo Camacho - 05/07/2024 8:21 AM EST Hospital Follow Up Diagnosis:Palpitations Hospital:[facility] Consulted by:N/A Discharged on:05/07/24 Care team:N/A Hospital notes from 05/07/24 say's to meet with Dr Skinner but I don't see who consulted him. The patient also asked to be called on a Tuesday since that is the only day he is available. (Indonesian Speaking Patient) documented in this encounter Plan of Treatment Not on file documented as of this encounter Visit Diagnoses Not on filedocumented in this encounter Care Teams Waitstaff Captain Relationship Specialty Start Date End Date Rebeca Mcghee MD [address] [place] [address] PCP - General Internal Medicine 03/13/24 documented as of this encounter
--- OUTSIDE RECORDS SUMMARY | 2024-05-10 15:52 | XMS_ITS | Encounter Summary ---
Author Organization [employer] [facility] [employer] Address [address] [place] [address] Care Team Providers Care Mexican Food Maker Name Role Phone Rebeca Mcghee MD Primary Care Provider Encounter Details Date Type Department Care Team (Late st Contact Info) Description 05/07/2024 Telephone [facility] Cardiology [place] [address] [place] [phone] Rebeca Mcghee MD [address] [place] [address] Social History Tobacco Use Types Packs/Day Years [...] documented in this encounter Progress Notes * Michelle López MA - 05/07/2024 2:56 PM EST Pt has never been a pt here except in an out patient setting for a holter monitor--looks like for the DC pt is to get a new pt referral by PCP and this has not yet happened This msg should have never made it to triage * Jairo Camacho - 05/07/2024 8:34 AM EST Patient wanted to know what activities can he do after having his palpitations on 05/07/24. 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 The patient has expressed to me that he isonly available Fridays and would prefer to be on the phone with this information not a voicemail. documented in this encounter Plan of Treatment Not on file documented as of this encounter Visit Diagnoses Not on filedocumented in this encounter Care Teams Mexican Food Maker Relationship Specialty Start Date End Date Rebeca Mcghee MD [address] [facility] [place] [address] PCP - General Internal Medicine 03/13/24 documented as of this encounter
--- OUTSIDE RECORDS SUMMARY | 2024-05-10 15:52 | XMS_ITS | Clinical Summary ---
Author Organization [facility] Address [address] [place] [address] Phone Care Team Providers Care Hospital Laboratory Technician Name Role Phone Rebeca Mcghee MD Primary Care Provider Allergies No known active allergies Medications hydrOXYzine HCL (ATARAX) 25 mg tablet Take 1 tablet (25 mg total) by mouth every 6 (six) hours for 3 days. 12 tablet 03/13/2024 Active Encounters Date Type Department Care Team Description 05/07/2024 12:27 AM EST - 05/07/2024 1:[address] [facility] [address] [place] [phone] Palpitations (Primary Dx) Discharge Disposition: Home or Self Care 05/07/2024 Telephone [facility] [address] [place] [phone] Rebeca Mcghee MD 05/07/2024 Telephone [facility] Cardiology [facility] [address] [place] [phone] Rebeca Mcghee MD 03/13/2024 5:00 PM EST - 03/13/2024 5:52 PM EST [facility] Emergency [address] [place] [phone] Non-cardiac chest pain (Primary Dx) Discharge Disposition: Home or Self Care 02/29/2024 2:42 PM EST - 02/29/2024 6:[address] [facility] [address] [place] [address] Palpitations (Primary Dx) Discharge Disposition: Home or Self Care from Last 3 Months Medical History Medical History Date Comments Fatty liver Anxiety Social History Tobacco Use Types Packs/Day Years Used Date Smoking Tobacco: Former Cigarettes Smokeless Tobacco: Never Tobacco Cessation:Counseling Given: Not Answered Sex and Gender Information Value Date Recorded Sex Assigned at Male 02/29/2024 1:00 PM EST Legal Sex Male 8:25 AM EST Gender Identity Male 02/29/2024 1:00 PM EST Sexual Orientation Straight 02/29/2024 1: 00 PM EST Obstetrics History Last Filed Vital Signs Vital Sign Reading [...] Mass Index 30.13 05/06/2024 4:35 PM EST Plan of Treatment Health Maintenance Due Date Last Done Comments DTaP,Tdap,and Td Vaccines (1 - Tdap) 05/22/1987 Hepatitis B Vaccines (1 of 3 - 19+ 3-dose series) 05/22/1987 Pneumococcal Vaccine: 50+ Ye ars (1 of 1 - PCV) 2018 Zoster Vaccines (1 of 2) 2018 Cholesterol Screening (Lipid Panel) 02/14/2022 Colorectal Cancer Screening: Colonoscopy 02/14/2022 Depression Screening 02/14/2022 HIV Screening 02/14/2022 Hepatitis C Screening 02/14/2022 Social Influencers of Health Screening 02/14/2022 COVID-19 Vaccine ( - 2023-2 5 season) 2023 Influenza Vaccine (#1) 2023 HIB Vaccines Aged Out No longer eligi ble based on patient's age to complete this topic HPV Vaccines Aged Out No longer eligi ble based on patient's age to complete this topic Hepatitis A Vaccines Aged Out No long er eligible based on patient's age to complete this topic IPV Vaccines Aged Out No longer eligi ble based on patient's age to complete this topic MMR Vaccines Aged Out No longer eligi ble based on patient's age to complete this topic Meningococcal ACWY Vaccine Aged Out N o longer eligible based on patient's age to complete this topic Meningococcal B Vacine Aged Out No lo nger eligible based on patient's age to complete this topic Pneumococcal Vaccine: Pediat rics (0 to 5 Years) and At-Risk Patients (6 to 64 Years) Aged Out No longer eligible b ased on patient's age to complete this topic RSV Immunization Patients Un travis 20 months Aged Out No longer eligible b ased on patient's age to complete this topic Varicella Vaccines Aged Out No longer eligible based on patient's age to complete this topic Procedures Procedure Name Priority Date/Time Associated Diagnosis Comments ECG ANNOTATED 05/08/2024 ECG ANNOTATED 05/08/2024 TROPONIN I HIGH SENSITIVITY STAT 05/06/2024 9:01 PM EST ECG 12-LEAD STAT 05/06/2024 8:52 PM EST XR CHEST 2 VIEWS STAT 05/06/2024 8:21 PM EST CBC WITH AUTO DIFFERENTIAL STAT 05/06/2024 6:03 PM EST MAGNESIUM STAT 05/06/2024 6:03 PM EST LIPASE STAT 05/06/2024 6:03 PM EST COMPREHENSIVE METABOLIC PANEL STAT 05/06/2024 6:03 PM EST CBC AND DIFFERENTIAL STAT 05/06/2024 6:03 PM EST TROPONIN I HIGH SENSITIVITY STAT 05/06/2024 6:03 PM EST ECG 12-LEAD STAT 05/06/2024 4:32 PM EST XR CHEST 2 VIEWS STAT 03/13/2024 5:31 PM EST TROPONIN I HIGH SENSITIVITY STAT 03/13/2024 12:51 PM EST CBC WITH AUTO DIFFERENTIAL STAT 03/13/2024 11:32 AM EST B-TYPE NATRIURETIC PEPTIDE STAT 03/13/2024 11:32 AM EST MAGNESIUM STAT 03/13/2024 11:32 AM EST LIPASE STAT 03/13/2024 11:32 AM EST COMPREHENSIVE METABOLIC PANEL STAT 03/13/2024 11:32 AM EST CBC AND DIFFERENTIAL STAT 03/13/2024 11:32 AM EST TROPONIN I HIGH SENSITIVITY STAT 03/13/2024 11:32 AM EST ECG 12-LEAD STAT 03/13/2024 11:21 AM EST ECG ANNOTATED 03/13/2024 CARDIAC HOLTER MONITOR (3RD CONSTITUTION PARTY REPORT GENERATED) STAT 02/29/2024 4:32 PM EST XR CHEST 2 VIEWS STAT 02/29/2024 2:00 PM EST TROPONIN I HIGH SENSITIVITY STAT 02/29/2024 1:43 PM EST TRIIODOTHYRONINE FREE STAT 02/29/2024 11:52 AM EST FREE THYROXINE WITH REFLEX TO FREE TRIIODOTHYRONINE STAT 02/29/2024 11:52 AM EST THYROID STIMULATING HORMONE WITH REFLEX TO FREE T4 AND FREE T3 STAT Add-on 02/29/2024 11:52 AM EST CBC WITH AUTO DIFFERENTIAL STAT 02/29/2024 11:52 AM EST MAGNESIUM STAT 02/29/2024 11:52 AM EST LIPASE STAT 02/29/2024 11:52 AM EST COMPREHENSIVE METABOLIC PANEL STAT 02/29/2024 11:52 AM EST CBC AND DIFFERENTIAL STAT 02/29/2024 11:52 AM EST TROPONIN I HIGH SENSITIVITY STAT 02/29/2024 11:52 AM EST ECG 12-LEAD STAT 02/29/2024 11:46 AM EST ECG ANNOTATED 02/29/2024 from Last 3 Months Results * ECG-Annotated (05/08/2024) Only the most recent of4 resultswithin the time period is included. us Provider Onbase MD ECG ORDERABLES Final Result * Troponin I high sensitivity (05/06/2024 9:01 PM EST) Only the most recent of6 resultswithin the time period is included. High Sensitivity Troponin I 4 <=79 ng/L LAB CHEMISTRY METHOD 05/06/2024 10:59 PM EST [facility] Blood Venous blood specimen / Unknown Venipuncture / Unknown 05/06/2024 9:01 PM EST 05/06/2024 10:33 PM EST Narrative [facility] - 05/06/2024 10:59 PM EST High levels of biotin in samples may falsely decrease hsTroponin values. ??Use caution when interpreting hsTroponin results in patients taking biotin who exhibit renal impairment (eGFR <60) or in patients taking more than 20 mg/day of biotin. us Bautista Dodge DO LAB BLOOD ORDERABLES Final Res ult [facility] [address] [place] [address], * ECG 12 lead (05/06/2024 8:52 PM EST) Only the most recent of4 resultswithin the time period is included. Ventricular Rate ECG 74 BPM GEMUSE Atrial Rate 74 BPM GEMUSE P-R Interval 166 ms GEMUSE QRS Duration 92 ms GEMUSE Q-T Interval 376 ms GEMUSE QTc 417 ms GEMUSE P Wave [place] 67 degrees GEMUSE R [place] 55 degrees GEMUSE T [place] 32 degrees GEMUSE ECG Interpretation Normal sinus rhythm Normal ECG When compared with ECG of 06-MAY-2024 16:32, (unconfirmed) No significant change was found Confirmed by ALEX TUCKER ([id number]) on 05/08/2024 8:04:01 AM GEMUSE 05/06/2024 8:52 PM EST 05/08/2024 8:04 AM EST Bautista Dodge DO ECG ORDERABLES Final Result GEMUSE * XR Chest 2 Views (05/06/2024 8:21 PM EST) Only the most recent of3 resultswithin the time period is included. Anatomical Region Laterality Modality Body Radiographic Rocio ging 05/07/2024 9:22 AM EST Impressions 05/07/2024 9:22 AM EST Normal chest radiographs. -------- FINAL REPORT -------- Dictated By: Dennis Aguirre Dictated Date: 05/07/2024 09:22 ET Assigned Physician: Dennis Aguirre Reviewed and Electronically Signed By: Dennis Aguirre Signed Date: 05/07/2024 09:22 ET Workstation ID: [id number] Transcribed By: Self Edit Transcribed Date: 05/07/2024 [...] Signed Date: 05/07/2024 09:22 ET Workstation ID: [id number] Transcribed By: Self Edit Transcribed Date: 05/07/2024 09:22 ET Bautista Dodge DO IMG XR PROCEDURES Final Result * (ABNORMAL) CBC auto differential (05/06/2024 6:03 PM EST) Only the most recent of3 resultswithin the time period is included. WBC 10.0 4.8 - 10.8 K/mcL LAB HEMETOLOGY METHOD 05/06/2024 6:14 PM [facility] RBC 5.40 4.50 - 5.50 M/mcL LAB HEMETOLOGY METHOD 05/06/2024 6:14 PM [facility] Hemoglobin 16.0 13.5 - 17.5 g/dL LAB HEMETOLOGY METHOD 05/06/2024 6:14 PM [facility] Hematocrit 48.5 42.0 - 54.0 % LAB HEMETOLOGY METHOD 05/06/2024 6:14 PM [facility] MCV 89.8 79.0 - 98.0 FL LAB HEMETOLOGY METHOD 05/06/2024 6:14 PM [facility] MCH 29.6 27.0 - 32.0 pcg LAB HEMETOLOGY METHOD 05/06/2024 6:14 PM [facility] MCHC 33.0 32.0 - 37.0 g/dL LAB HEMETOLOGY METHOD 05/06/2024 6:14 PM [facility] RDW 13.2 11.0 - 15.0 % LAB HEMETOLOGY METHOD 05/06/2024 6:14 PM [facility] Platelets 165 130 - 400 K/mcL LAB HEMETOLOGY METHOD 05/06/2024 6:14 PM [facility] MPV 11.4(H) 7.0 - 11.0 FL LAB HEMETOLOGY METHOD 05/06/2024 6:14 PM [facility] NRBC 0.0 <1.0 % LAB HEMETOLOGY METHOD 05/06/2024 6:14 PM [facility] NRBC Absolute 0.00 <0.10 K/mcL LAB HEMETOLOGY METHOD 05/06/2024 6:14 PM [facility] Neutrophils Relative 75.9 % LAB HEMETOLOGY METHOD 05/06/2024 6:14 PM [facility] Lymphocytes Relative 16.9 % LAB HEMETOLOGY METHOD 05/06/2024 6:14 PM [facility] Monocytes Relative 5.8 % LAB HEMETOLOGY METHOD 05/06/2024 6:14 PM [facility] Eosinophils Relative 0.7 % LAB HEMETOLOGY METHOD 05/06/2024 6:14 PM [facility] Basophils Relative 0.5 % LAB HEMETOLOGY METHOD 05/06/2024 6:14 PM [facility] Immature Granulocytes Relative 0.2 % LAB HEMETOLOGY METHOD 05/06/2024 6:14 PM [facility] Neutrophils Absolute 7.61(H) 1.50 - 7.00 K/mcL LAB HEMETOLOGY METHOD 05/06/2024 6:14 PM [facility] Lymphocytes Absolute 1.70 1.00 - 5.00 K/mcL LAB HEMETOLOGY METHOD 05/06/2024 6:14 PM EST [facility] Monocytes Absolute 0.58 0.20 - 1.00 K/mcL LAB HEMETOLOGY METHOD 05/06/2024 6:14 PM EST [facility] Eosinophils Absolute 0.07 0.00 - 0.50 K/mcL LAB HEMETOLOGY METHOD 05/06/2024 6:14 PM EST [facility] Basophils Absolute 0.05 0.00 - 0.20 K/[facility] LAB HEMETOLOGY METHOD 05/06/2024 6:14 PM EST [facility] Immature Granulocytes Absolute 0.02 0.00 - 0.03 K/[facility] LAB HEMETOLOGY METHOD 05/06/2024 6:14 PM EST [facility] Blood Venous blood specimen / Unknown Venipuncture / Unknown 05/06/2024 6:03 PM EST 05/06/2024 6:09 PM EST us Bautista Dodge DO LAB BLOOD ORDERABLES Final Res ult [facility] [address] [place] [address], [place] [phone] * Magnesium (05/06/2024 6:03 PM EST) Only the most recent of3 resultswithin the time period is included. Magnesium 2.3 1.9 - 2.6 mg/dL LAB CHEMISTRY METHOD 05/06/2024 6:32 PM EST [facility] Blood Venous blood specimen / Unknown Venipuncture / Unknown 05/06/2024 6:03 PM EST 05/06/2024 6:09 PM EST us Bautista Dodge DO LAB BLOOD ORDERABLES Final Res ult [facility] [address] [place] [address], [place] [phone] * Lipase (05/06/2024 6:03 PM EST) Only the most recent of3 resultswithin the time period is included. Lipase 63 13 - 75 unit/L LAB CHEMISTRY METHOD 05/06/2024 6:32 PM [facility] Blood Venous blood specimen / Unknown Venipuncture / Unknown 05/06/2024 6:03 PM EST 05/06/2024 6:09 PM EST Bautista Dodge DO LAB BLOOD ORDERABLES Final Res ult [facility] [address] [place] [address], [place] [phone] * Comprehensive metabolic panel (05/06/2024 6:03 PM EST) Only the most recent of3 resultswithin the time period is included. Sodium 138 133 - 145 mmol/L LAB CHEMISTRY METHOD 05/06/2024 6:32 PM [facility] Potassium 4.3 3.5 - 5.5 mmol/L LAB CHEMISTRY METHOD 05/06/2024 6:32 PM [facility] Chloride 107 96 - 110 mmol/L LAB CHEMISTRY METHOD 05/06/2024 6:32 PM [facility] CO2 28 21 - 32 mmol/L LAB CHEMISTRY METHOD 05/06/2024 6:32 PM [facility] Anion Gap 3 3 - 11 LAB CHEMISTRY METHOD 05/06/2024 6:32 PM [facility] Glucose 99 70 - 100 mg/dL LAB CHEMISTRY METHOD 05/06/2024 6:32 PM [facility] BUN 16 5 - 25 mg/dL LAB CHEMISTRY METHOD 05/06/2024 6:32 PM [facility] Creatinine 0.91 0.70 - 1.30 mg/dL LAB CHEMISTRY METHOD 05/06/2024 6:32 PM [facility] eGFR 100 >=60 mL/min/1. 73m2 LAB CHEMISTRY METHOD 05/06/2024 6:32 PM [facility] Comment:Calculation based on the??Chronic Kidney Disease Epidemiology Collaboration (CKD-EPI) equation refit??without adjustment for race. BUN/Creatinine Ratio 17.6 LAB CHEMISTRY METHOD 05/06/2024 6:32 PM [facility] Calcium 9.0 8.5 - 10.5 mg/dL LAB CHEMISTRY METHOD 05/06/2024 6:32 PM [facility] AST (SGOT) 22 10 - 42 unit/L LAB CHEMISTRY METHOD 05/06/2024 6:32 PM [facility] ALT (SGPT) 28 10 - 60 unit/L LAB CHEMISTRY METHOD 05/06/2024 6:32 PM [facility] Alkaline Phosphatase 83 42 - 121 unit/L LAB CHEMISTRY METHOD 05/06/2024 6:32 PM [facility] Total Protein 6.8 6.0 - 8.0 g/dL LAB CHEMISTRY METHOD 05/06/2024 6:32 PM [facility] Albumin 3.6 3.2 - 5.0 g/dL LAB CHEMISTRY METHOD 05/06/2024 6:32 PM [facility] Total Bilirubin 0.9 0.0 - 1.4 mg/dL LAB CHEMISTRY METHOD 05/06/2024 6:32 PM [facility] Blood Venous blood specimen / Unknown Venipuncture / Unknown 05/06/2024 6:03 PM EST 05/06/2024 6:09 PM EST us Bautista Dodge DO LAB BLOOD ORDERABLES Final Res ult [facility] [address] [place] [address], [place] [phone] * B-type natriuretic peptide (03/13/2024 11:32 AM EST) Pathologist [facility] BNP 15 <=100 pcg/mL LAB CHEMISTRY METHOD 03/13/2024 1:14 PM EST [facility] Blood Venous blood specimen / Unknown Venipuncture / Unknown 03/13/2024 11:32 AM EST 03/13/2024 12:38 PM EST Rolo Rodgers DO LAB BLOOD ORDERABLES Final Result [facility] [address] [place] [address], * CARDIAC HOLTER MONITOR (3RD CONSTITUTION PARTY REPORT GENERATED) (02/29/2024 4:32 PM EST) Anatomical Region Laterality Modality Cardiac Diagnost ic Narrative 03/06/2024 9:29 AM EST ?Sinus rhythm without significant arrhythmia. ?The patient was asymptomatic. The patient wore the monitor for 48 hours and 11 minutes. Sinus rhythm throughout the study with an average heart rate 76 bpm, a minimum heart rate 46 bpm at 4:17 AM of March 01 and a maximal heart rate 127 bpm at 6:15 AM of March 01. There were total 18 supraventricular ectopic beats. There was no PVC. The patient was asymptomatic. Mariely NGUYEN CV CARDIAC SERVICES MS OCEDURES Final Result * (ABNORMAL) Thyroid stimulating hormone with reflex to free t4 and free t3 (TSH Reflex) (02/29/2024 11:52 AM EST) [facility] TSH 0.36(L) 0.40 - 4.00 mcIU/mL LAB CHEMISTRY METHOD 02/29/2024 5:04 PM EST [facility] Blood Venous blood specimen / Unknown Venipuncture / Unknown 02/29/2024 11:52 AM EST 02/29/2024 12:00 PM EST Mariely SpreadsaveElyssa NGUYEN LAB BLOOD ORDERABLES F inal Result Performing Organization Address [facility]/ZIP Co de Phone Number [facility] [address] [place] [address], [place] [phone] * Free thyroxine with reflex to free triiodothyronine (02/29/2024 11:52 AM EST) Free T4 1.01 0.70 - 1.80 ng/dL LAB CHEMISTRY METHOD 02/29/2024 5:30 PM EST [facility] Blood Venous blood specimen / Unknown Venipuncture / Unknown 02/29/2024 11:52 AM EST 02/29/2024 12:00 PM EST Mariely HyshellyPU[employer] Biosc[employer]ena NGUYEN LAB BLOOD ORDERABLES F inal Result Performing Organization Address [facility] Co de Phone Number [facility] [address] [place] [address], [place] [phone] * Triiodothyronine free (02/29/2024 11:52 AM EST) T3, Free 328 230 - 420 pcg/dL LAB CHEMISTRY METHOD 02/29/2024 5:56 PM EST [facility] Blood Venous blood specimen / Unknown Venipuncture / Unknown 02/29/2024 11:52 AM EST 02/29/2024 12:00 PM EST Mariely Spreads[employer]helly[employer]ena [place] LAB BLOOD ORDERABLES F inal Result Performing Organization Address City/[facility]/ZIP Co de Phone Number [facility] [address] [place] [address], [place] [phone] from Last 3 Months Insurance [facility] Care Teams Hospital Laboratory Technician Relationship Specialty Start Date End Date Rebeca Mcghee MD [address] [place] [address] PCP - General Internal Medicine 03/13/24
== END 2024-05-10 14:30 | disposition home or self-care (01) ==
PROVIDERS: PCP Internal Medicine; Visit Provider Internal Medicine
DX: I10 Essential (primary) hypertension (principal); R00.2 Palpitations; F41.8 Other specified anxiety disorders

== ENCOUNTER → 2024-05-10 13:18 | Outpatient (BNVA) | payer OTHER, SELFPAY | PROVIDERS: PCP Internal Medicine; Visit Provider Internal Medicine | DX: I10 Essential (primary) hypertension (principal); R00.2 Palpitations; F41.8 Other specified anxiety disorders | CPT/HCPCS: 96127; 99212 ==

== ENCOUNTER 2024-06-01 13:04 | Outpatient (AMB) | payer OTHER, SELFPAY ==
--- NOTE | 2024-06-01 13:12 | MHC.OFFVIS ---
Vital Signs 06/01/24 13:30 Height 5 ft 8 in Weight 210 lb BMI 31.9 BP 120/80 Blood Pressure Location Rt brachial Position Sitting Pulse 76 Pulse Source Pulse Oximeter Pulse Oximetry (%) 99 Oxygen Delivery Method Room Air Intake Visit Reasons: 3 mo f/u fatty liver Intake Note: ESTABLISHED PATIENT for mgmt of fatty liver + fecal abn. Chief Complaint; Pt reports sx are well controlled currently. Pt has stopped senna however because his PCP said that it was adding to the number of medications that he was taking and that it was making the total amount too much? Pt does have questions regarding US, regarding results of most recent US as well as if there is any plans for future US or other diagnostic imaging. Assistant Financial Accountant Required: Yes Accompanied by: Self / Same As Patient Allergies No Known Allergies Allergy (Verified 06/01/24 13:13) HPI HPI 3 mo f/u fatty liver: Details: LAST VISIT: Hepatic steatosis Pancreatic insufficiency Transaminitis LLQ abdominal pain Plan Will repeat liver panel, liver fibrosis panel as well as liver ultrasound with elastography. Patient was encouraged to continue his diet. Increase activity and exercise. Patient will report in 3 months to discuss results. He is agreeable to this plan and verbalizes understanding of instructions. He was given the opportunity to ask questions and all questions answered. ? Thank you for allowing me to participate in his care Orders Orders Hemoglobin A1c 03/02/24 E11.9 Liver Fibrosis Pnl 03/02/24 K76.0 Liver Panel 03/02/24 R74.01 US abdomen valentino w elastography 03/02/24 K76.0 Medications Refilled hjsdtu-[id number]-yqffphi 24,000-76,000 -120,000 unit (Creon) administer with meals and/or snacks 1 cap PO QID 120 caps 4RF K58.9 TODAY'S VISIT: Patient is here today for follow-up and to discuss ultrasound results and lab results. Normal liver enzymes, A1c 5.3%. Patient reports that he has been doing better. Avoiding dietary triggers. Denies any dyspepsia, dysphagia or odynophagia. Trying to eat food that is low in fat, eating more protein. Patient is trying to eat more vegetables as well. Still needs to continue to lose more weight. Liver fibrosis panel F 1. Ultrasound showed increased echotexture consistent with steatosis. Patient denies any abdominal pain or discomfort. Denies any melena, hematochezia, unintentional weight loss or ribbon like stools he PFSH Medical History History of adenomatous polyp of colon Intermittent palpitations Anxiety with depression BPPV (benign paroxysmal positional vertigo) Hepatic steatosis Pancreatic insufficiency Kidney stone GERD (gastroesophageal reflux disease) Hypertension Surgical History Hx of colonoscopy Family History Father No problems noted. Mother Alzheimer disease Social History Housing: Apartment Alcohol intake: never Patient Tobacco Use Status: Former Tobacco user e-Cigarette/Vaping Use: Never Used Second Hand Smoke Exposure: No Current occupational status: employed Cognitive needs: No Hearing needs: No Vision needs: No Review of Systems Const Denies weight gain and Denies weight loss ENT Reports no additional complaints, Denies dysphagia and Denies odynophagia Card Reports no additional complaints Resp Reports no additional complaints GI Denies abdominal pain, Denies belching, Denies melena, Denies bloating, Denies change in bowel habits, Reports constipation (Occasional), Denies dysphagia, Denies excessive flatus, Denies dyspepsia, Denies heartburn, Denies diarrhea, Denies loose stools, Denies nausea, Denies odynophagia and Denies vomiting Reports no additional complaints Musc Reports no additional complaints Neuro Reports no additional complaints Psych Reports no additional complaints Endo Reports no additional complaints Physical Exam Vital Signs: Last Vital Signs Pulse 76 06/01/24 13:30 BP 120/80 06/01/24 13:30 Pulse Ox 99 06/01/24 13:30 Oxygen Delivery Method Room Air 06/01/24 13:30 BMI result Body Mass Index 31.9 Const General: healthy appearing and no acute distress Nutritional Appearance: obese Orientation/consciousness: patient oriented x3 Resp Effort & Inspection: normal respiratory effort, able to speak in complete sentences, no tracheal deviation and symmetric chest movement Auscultation: clear to auscultation bilaterally Cardio Rate: regular rate GI Inspection: Yes normal to inspection, No distended and Yes obesity Palpation (GI): Soft to palpation, not firm, nontender and No hepatosplenomegaly present Auscultation: normal bowel sounds General: Yes no CVA tenderness Back/Spine/Pelvis Back: no CVA tenderness Skin General skin exam: elasticity normal, turgor normal and dry skin Neuro General: patient oriented x3 Psych Appearance: grossly normal Mental Status: mental status grossly normal Results Reviewed Results Reviewed: ABDOMINAL ULTRASOUND WITH ELASTOGRAPHY FINDINGS: Liver: The right lobe of the liver measures 13.6 cm in size. The left lobe of the liver measures 6.4 cm in size. The liver demonstrates increased echotexture, consistent with steatosis. No focal mass or intrahepatic biliary ductal dilatation is identified. There is normal hepatopedal flow in the portal vein. Ultrasound elastography of the liver was performed with 10 separate measurements of the liver parenchyma with the patient in the supine position. Measurements were obtained approximately 2 cm below Bhaskar's capsule and perpendicular to the capsule. Images are of satisfactory quality. The median shear wave velocity is 1.65 m/s (previously 1.75 m/s). The interquartile range/median (IQR/median) is 0.15. Gallbladder and biliary tree: The gallbladder is unremarkable, without evidence of calculi, wall thickening, or pericholecystic fluid. There is no sonographic Raygoza sign. The common bile duct is normal in caliber measuring 3 mm. Right Kidney: The right kidney measures 10.0 cm in length. The right kidney is unremarkable, without evidence of masses, hydronephrosis, or calculi. Pancreas: The pancreatic head, neck, and body are unremarkable. The pancreatic tail is obscured by bowel gas. Abdominal aorta and inferior vena cava: The visualized portions of the abdominal aorta and inferior vena cava are normal in caliber. There is no free fluid in the right upper quadrant. US/US abdomen valentino w elastography IMPRESSION: Hepatic steatosis. The median shear wave velocity is 1.65 m/s, corresponding to a median liver stiffness of 8.24 kPa. The IQR/median value is 0.15. This is indicative of a poor quality data set, and the estimated liver stiffness may be unreliable. Laboratory Tests 03/02/24 14:22 Hemoglobin A1c % 5.3 Total Bilirubin 1.4 H Direct Bilirubin 0.5 AST 25 ALT 22 Alkaline Phosphatase 87 Liver Fibrosis Stage F1 Assessment & Plan Assessment & Plan (1) History of adenomatous polyp of colon: Comment: Removed [place] colonoscopy [place] [address] Francois Code(s): Z86.0101 - Personal history of adenomatous and serrated colon polyps Category: Medical (2) Hepatic steatosis: Code(s): K76.0 - Fatty (change of) liver, not elsewhere classified Category: Medical (3) Pancreatic insufficiency: Code(s): K86.89 - Other specified diseases of pancreas Category: Medical (4) Irritable bowel syndrome with both constipation and diarrhea: Code(s): K58.2 - Mixed irritable bowel syndrome Category: Medical Plan Patient will get his blood work done today. Will repeat liver panel, check lipase is patient complains of occasional left upper quadrant pain postprandially. Will do ultrasound with liver elastography in 6 months just before his next appointment. Continue Creon with meals. Low-fat, low-salt, low carb and high-protein diet discussed with patient. Patient is agreeable to this plan and verbalizes understanding of instructions. He was given the opportunity to ask questions and all questions answered. Thank you for allowing me to participate in his care Orders: Orders Lipase 06/01/24 R10.9 - Unspecified abdominal pain Liver Panel 06/01/24 R74.01 - Elevation of levels of liver transaminase levels US abdomen valentino w elastography 6 Months K76.0 - Fatty (change of) liver, not elsewhere classified Coding Level of Care Code Est Pt Level 4 (56934) Complex EM visit Add On G2211 Diagnoses History of adenomatous polyp of colon Z86.0101 Hepatic steatosis K76.0 Pancreatic insufficiency K86.89 Irritable bowel syndrome with both constipation and diarrhea K58.2 Time Spent (min) 35 Comment 20 minutes spent patient and additional 15 minutes spent reviewing his records
[2024-06-01 13:30] VITALS: BP 120/80; PULSE 76; O2SAT 99; BMI 31.9
== END 2024-06-01 14:00 | disposition home or self-care (01) ==
LOC: HO.HGI 13:04
PROVIDERS: PCP Nurse Practitioner Family; Visit Provider Nurse Practitioner Family
DX: Z86.0101 Personal history of adenomatous and serrated colon polyps (principal); K76.0 Fatty (change of) liver, not elsewhere classified; K86.89 Other specified diseases of pancreas; K58.2 Mixed irritable bowel syndrome
CPT/HCPCS: 99214; G2211

== ENCOUNTER → 2024-06-01 13:04 | Outpatient (BNVA) | payer OTHER, SELFPAY | PROVIDERS: PCP Nurse Practitioner Family; Visit Provider Nurse Practitioner Family | DX: K76.0 Fatty (change of) liver, not elsewhere classified (principal); K86.89 Other specified diseases of pancreas; K58.2 Mixed irritable bowel syndrome; Z86.0101 Personal history of adenomatous and serrated colon polyps | CPT/HCPCS: 99212 ==

== ENCOUNTER 2024-07-13 08:13 | Outpatient (REF) | payer OTHER, SELFPAY ==
--- OUTSIDE RECORDS SUMMARY | 2024-07-13 08:23 | XMS_ITS | Clinical Summary ---
Author Organization [facility] Address [address] [place] [address] Phone Care Team Providers Care Wood Box Maker Name Role Phone Rebeca Mcghee MD Primary Care Provider Allergies No known active allergies Medications hydrOXYzine HCL (ATARAX) 25 mg tablet Take 1 tablet (25 mg total) by mouth every 6 (six) hours for 3 days. 12 tablet 03/13/2024 Active Encounters Date Type Department Care Team Description 05/14/2024 Telephone [facility] [address] [place] [address] Rebeca Mcghee MD Referral (Received routine paper referral - May) 05/07/2024 12:27 AM EST - 05/07/2024 1:56 AM EST Emergency [facility] Emergency [address] [place] [address] Palpitations (Primary Dx) Discharge Disposition: Home or Self Care 05/07/2024 Telephone [facility] [address] [place] [address] Rebeca Mcghee MD 05/07/2024 Telephone [facility] [address] [place] [phone] Rebeca Mcghee MD from Last 3 Months Medical History Medical [...] 05/06/2024 4:35 PM EST Plan of Treatment Upcoming Encounters Date Type Department Care Team (Late st Contact Info) Description 10/09/2024 10:20 AM EDT Office Visit [facility] [address] [place] [address] Dr [address] [place] [address] Alex Tucker MD [address] [place] [address] Dr [address] [place] [address] Health Maintenance Due Date Last Done Comments DTaP,Tdap,and Td Vaccines (1 - Tdap) 05/22/1987 Hepatitis B Vaccines (1 of 3 - 19+ 3-dose series) 05/22/1987 Pneumococcal Vaccine: 50+ Years (1 of 1 - PCV) 2018 Zoster Vaccines (1 of 2) 2018 Cholesterol Screening (Lipid Panel) 02/14/2022 Colorectal Cancer Screening: Colonoscopy 02/14/2022 Depression Screening 02/14/2022 HIV Screening 02/14/2022 Hepatitis C Screening 02/14/2022 Social Influencers of Health Screening 02/14/2022 COVID-19 Vaccine (2023-2 5 season) 2023 Influenza Vaccine (Season Ended) 2024 Hypertension/CHF/CAD Annual BMP Blood Test 05/06/2025 05/06/2024, 03/13/2024, 02/29/2024 HIB Vaccines Aged Out No longer eligi [...] age to complete this topic Meningococcal B Vaccine Aged Out No l onger eligible based on patient's age to complete this topic Pneumococcal Vaccine: Pediatrics (0 to 5 Years) and At-Risk Patients (6 to 64 Years) Aged Out No longer eligible b ased on patient's age to complete this topic RSV Immunization Patients Under 20 months Aged Out No longer eligible [...] ECG 12-LEAD STAT 05/06/2024 4:32 PM EST from Last 3 Months Results * ECG-Annotated (05/08/2024) Only the most recent of2 resultswithin the time period is included. us Provider Onbase MD ECG ORDERABLES Final Result * Troponin I high sensitivity (05/06/2024 9:01 PM EST) Only the most recent of2 resultswithin the time period is included. [facility] High Sensitivity Troponin I 4 <=79 ng/L LAB CHEMISTRY METHOD 05/06/2024 10:59 PM EST [facility] Blood Venous blood specimen / Unknown Venipuncture / Unknown 05/06/2024 9:01 PM EST 05/06/2024 10:33 PM EST Narrative [facility] - 05/06/2024 10:59 PM EST High levels of biotin in samples may falsely decrease hsTroponin values. ??Use caution when interpreting hsTroponin results in patients taking biotin who exhibit renal impairment (eGFR <60) or in patients taking more than 20 mg/day of biotin. Bautista Dodge DO LAB BLOOD ORDERABLES Final Res ult [facility] [address] [place] [address], * ECG 12 lead (05/06/2024 8:52 PM EST) Only the most recent of2 resultswithin the time period is included. [facility] Ventricular Rate ECG 74 BPM GEMUSE Atrial Rate 74 BPM GEMUSE P-R Interval 166 ms GEMUSE QRS Duration 92 ms GEMUSE Q-T Interval 376 ms GEMUSE QTc 417 ms GEMUSE P Wave [place] 67 degrees GEMUSE R [place] 55 degrees GEMUSE T [place] 32 degrees GEMUSE ECG Interpretation Normal sinus rhythm Normal ECG When compared with ECG of 06-MAY-2024 16:32, (unconfirmed) No significant change was found Confirmed by ALEX TUCKER ([id number]) on 05/08/2024 8:04:01 AM GEMUSE 05/06/2024 8:52 PM EST 05/08/2024 8:04 AM EST us Bautista Dodge DO ECG ORDERABLES [...] Signed Date: 05/07/2024 09:22 ET Workstation ID: [id number] Transcribed By: Self Edit Transcribed Date: 05/07/2024 [...] Signed Date: 05/07/2024 09:22 ET Workstation ID: [id number] Transcribed By: Self Edit Transcribed Date: 05/07/2024 09:22 ET Bautista Dodge DO IMG XR PROCEDURES Final Result * (ABNORMAL) CBC auto differential (05/06/2024 6:03 PM EST) [facility] WBC 10.0 4.8 - 10.8 K/mcL LAB HEMETOLOGY METHOD 05/06/2024 6:14 PM [facility] RBC 5.40 4.50 - 5.50 M/mcL LAB HEMETOLOGY METHOD 05/06/2024 6:14 PM [facility] Hemoglobin 16.0 13.5 - 17.5 g/dL LAB HEMETOLOGY METHOD 05/06/2024 6:14 PM [facility] Hematocrit 48.5 42.0 - 54.0 % LAB HEMETOLOGY METHOD 05/06/2024 6:14 PM [facility] MCV 89.8 79.0 - 98.0 FL LAB HEMETOLOGY METHOD 05/06/2024 6:14 PM [facility] MCH 29.6 27.0 - 32.0 pcg LAB HEMETOLOGY METHOD 05/06/2024 6:14 PM [facility] MCHC 33.0 32.0 - 37.0 g/dL LAB HEMETOLOGY METHOD 05/06/2024 6:14 PM [facility] RDW 13.2 11.0 - 15.0 % LAB HEMETOLOGY METHOD 05/06/2024 6:14 PM [facility] Platelets 165 130 - 400 K/mcL LAB HEMETOLOGY METHOD 05/06/2024 6:14 PM [facility] MPV 11.4(H) 7.0 - 11.0 FL LAB HEMETOLOGY METHOD 05/06/2024 6:14 PM [facility] NRBC 0.0 <1.0 % LAB HEMETOLOGY METHOD 05/06/2024 6:14 PM [facility] NRBC Absolute 0.00 <0.10 K/mcL LAB HEMETOLOGY METHOD 05/06/2024 6:14 PM [facility] Neutrophils Relative 75.9 % LAB HEMETOLOGY METHOD 05/06/2024 6:14 PM [facility] Lymphocytes Relative 16.9 % LAB HEMETOLOGY METHOD 05/06/2024 6:14 PM [facility] Monocytes Relative 5.8 % LAB HEMETOLOGY METHOD 05/06/2024 6:14 PM [facility] Eosinophils Relative 0.7 % LAB HEMETOLOGY METHOD 05/06/2024 6:14 PM [facility] Basophils Relative 0.5 % LAB HEMETOLOGY METHOD 05/06/2024 6:14 PM [facility] Immature Granulocytes Relative 0.2 % LAB HEMETOLOGY METHOD 05/06/2024 6:14 PM [facility] Neutrophils Absolute 7.61(H) 1.50 - 7.00 K/mcL LAB HEMETOLOGY METHOD 05/06/2024 6:14 PM [facility] Lymphocytes Absolute 1.70 1.00 - 5.00 K/mcL LAB HEMETOLOGY METHOD 05/06/2024 6:14 PM [facility] Monocytes Absolute 0.58 0.20 - 1.00 K/mcL LAB HEMETOLOGY METHOD 05/06/2024 6:14 PM [facility] Eosinophils Absolute 0.07 0.00 - 0.50 K/mcL LAB HEMETOLOGY METHOD 05/06/2024 6:14 PM [facility] Basophils Absolute 0.05 0.00 - 0.20 K/[facility] LAB HEMETOLOGY METHOD 05/06/2024 6:14 PM EST [facility] Immature Granulocytes Absolute 0.02 0.00 - 0.03 K/[facility] LAB HEMETOLOGY METHOD 05/06/2024 6:14 PM EST [facility] Blood Venous blood specimen / Unknown Venipuncture / Unknown 05/06/2024 6:03 PM EST 05/06/2024 6:09 PM EST us Bautista Dodge DO LAB BLOOD ORDERABLES Final Res ult [facility] [address] [place] [address], [place] [phone] * Magnesium (05/06/2024 6:03 PM EST) Magnesium 2.3 1.9 - 2.6 mg/dL LAB CHEMISTRY METHOD 05/06/2024 6:32 PM EST [facility] Blood Venous blood specimen / Unknown Venipuncture / Unknown 05/06/2024 6:03 PM EST 05/06/2024 6:09 PM EST us Bautista Dodge DO LAB BLOOD ORDERABLES Final Res ult [facility] [address] [place] [address], [place] [phone] * Lipase (05/06/2024 6:03 PM EST) Lipase 63 13 - 75 unit/L LAB CHEMISTRY METHOD 05/06/2024 6:32 PM EST [facility] Blood Venous blood specimen / Unknown Venipuncture / Unknown 05/06/2024 6:03 PM EST 05/06/2024 6:09 PM EST us Bautista P Neenan DO LAB BLOOD ORDERABLES Final Res ult [facility] [address] [place] [address], * Comprehensive metabolic panel (05/06/2024 6:03 PM EST) Sodium 138 133 - 145 mmol/L LAB CHEMISTRY METHOD 05/06/2024 6:32 PM EST [facility] Potassium 4.3 3.5 - 5.5 mmol/L LAB CHEMISTRY METHOD 05/06/2024 6:32 PM [facility] Chloride 107 96 - 110 mmol/L LAB CHEMISTRY METHOD 05/06/2024 6:32 PM [facility] CO2 28 21 - 32 mmol/L LAB CHEMISTRY METHOD 05/06/2024 6:32 PM [facility] Anion Gap 3 3 - 11 LAB CHEMISTRY METHOD 05/06/2024 6:32 PM [facility] Glucose 99 70 - 100 mg/dL LAB CHEMISTRY METHOD 05/06/2024 6:32 PM [facility] BUN 16 5 - 25 mg/dL LAB CHEMISTRY METHOD 05/06/2024 6:32 PM [facility] Creatinine 0.91 0.70 - 1.30 mg/dL LAB CHEMISTRY METHOD 05/06/2024 6:32 PM [facility] eGFR 100 >=60 mL/min/1. 73m2 LAB CHEMISTRY METHOD 05/06/2024 6:32 PM [facility] Comment:Calculation based on the??Chronic Kidney Disease Epidemiology Collaboration (CKD-EPI) equation refit??without adjustment for race. BUN/Creatinine Ratio 17.6 LAB CHEMISTRY METHOD 05/06/2024 6:32 PM [facility] Calcium 9.0 8.5 - 10.5 mg/dL LAB CHEMISTRY METHOD 05/06/2024 6:32 PM [facility] AST (SGOT) 22 10 - 42 unit/L LAB CHEMISTRY METHOD 05/06/2024 6:32 PM [facility] ALT (SGPT) 28 10 - 60 unit/L LAB CHEMISTRY METHOD 05/06/2024 6:32 PM [facility] Alkaline Phosphatase 83 42 - 121 unit/L LAB CHEMISTRY METHOD 05/06/2024 6:32 PM [facility] Total Protein 6.8 6.0 - 8.0 g/dL LAB CHEMISTRY METHOD 05/06/2024 6:32 PM EST [facility] Albumin 3.6 3.2 - 5.0 g/dL LAB CHEMISTRY METHOD 05/06/2024 6:32 PM [facility] Total Bilirubin 0.9 0.0 - 1.4 mg/dL LAB CHEMISTRY METHOD 05/06/2024 6:32 PM [facility] Blood Venous blood specimen / Unknown Venipuncture / Unknown 05/06/2024 6:03 PM EST 05/06/2024 6:09 PM EST us Bautista Dodge DO LAB BLOOD ORDERABLES Final Res ult [facility] [address] [place] [address], [place] [phone] from Last 3 Months Insurance [facility] [employer] Care Teams Wood Box Maker Relationship Specialty Start Date End Date Rebeca Mcghee MD [address] [facility] [place] [address] PCP - General Internal Medicine 03/13/24
[2024-07-13 09:17] LABS: Alanine Aminotransferase 27 U/L (0-40); Albumin Level 3.9 g/dL (3.5-5.0); Alkaline Phosphatase 91 U/L (39-117); Aspartate Amino Transferase 31 U/L (5-37); Bilirubin Direct 0.5 mg/dL (0.0-0.5); Bilirubin Total 1.7 mg/dL (0.0-1.0); Lipase 42 U/L (8-78); Total Protein 6.7 g/dL (6.5-8.0)
== END 2024-07-13 08:14 | disposition home or self-care (01) ==
LOC: HO.LAB 08:13
PROVIDERS: PCP Internal Medicine; Visit Provider Nurse Practitioner Family
DX: R10.9 Unspecified abdominal pain (principal); R74.01 Elevation of levels of liver transaminase levels
CPT/HCPCS: 36415; 80076; 83690

== ENCOUNTER 2024-09-07 13:21 | Outpatient (AMB) | payer OTHER, SELFPAY ==
--- NOTE | 2024-09-07 13:45 | MHC.OFFVIS ---
Vital Signs 09/07/24 13:51 Height 5 ft 8 in Weight 228 lb BMI 34.7 BP 128/84 Blood Pressure Location Lt brachial Position Sitting Pulse 86 Pulse Source Pulse Oximeter Pulse Oximetry (%) 98 Oxygen Delivery Method Room Air Intake Visit Reasons: 3 months f/u Hepatic steatosis Intake Note: Established patient for mgmt of fatty liver. Discuss colo. Labs done. US outstanding but not scheduled yet. CC; C.O. lightly colored / abnormal stools. Pt denies any additional sx at this time. Pt does report some concern over recent weight gain but is not sure if this was self inflicted based on his recent diet or not. Cigarette Making Examiner Required: Yes Cigarette Making Examiner Services: Cigarette Making Examiner Present Cigarette Making Examiner Name: Shagufta [id number] + [facility] [place] Information Interpreted: clinical only Accompanied by: Self / Same As Patient Allergies No Known Allergies Allergy (Verified 09/07/24 13:45) HPI HPI 3 months f/u Hepatic steatosis: Details: LAST VISIT: History of adenomatous polyp of colon Hepatic steatosis Pancreatic insufficiency Irritable bowel syndrome with both constipation and diarrhea Plan Patient will get his blood work done today. Will repeat liver panel, check lipase is patient complains of occasional left upper quadrant pain postprandially. Will do ultrasound with liver elastography in 6 months just before his next appointment. Continue Creon with meals. Low-fat, low-salt, low carb and high-protein diet discussed with patient. Patient is agreeable to this plan and verbalizes understanding of instructions. He was given the opportunity to ask questions and all questions answered. ? Thank you for allowing me to participate in his care Orders Lipase 06/01/24 R10.9 Liver Panel 06/01/24 R74.01 US abdomen valentino w elastography 6 Months K76.0 TODAY'S VISIT Patient is here today for follow-up. Patient had ultrasound with elastography as well as liver enzymes. Liver enzymes normal. Improved elastography of the liver. Patient however gained weight since last visit. Patient gained 18 lb since last visit. Patient denies any GI concerning symptoms. Denies any melena, hematochezia, unintentional weight loss or ribbon like stools. Denies any dyspepsia, dysphagia or odynophagia. Patient is taking Creon and reports that is helping with bloating. Patient will be due to go for colonoscopy this year [facility] Medical History History of adenomatous polyp of colon Intermittent palpitations Anxiety with depression BPPV (benign paroxysmal positional vertigo) Hepatic steatosis Pancreatic insufficiency Kidney stone GERD (gastroesophageal reflux disease) Hypertension Surgical History Hx of colonoscopy Family History Father No problems noted. Mother Alzheimer disease Social History Housing: Apartment Alcohol intake: never Patient Tobacco Use Status: Former Tobacco user e-Cigarette/Vaping Use: Never Used Second Hand Smoke Exposure: No Current occupational status: employed Cognitive needs: No Hearing needs: No Vision needs: No Review of Systems Const Denies weight gain and Denies weight loss ENT Reports no additional complaints, Denies dysphagia and Denies odynophagia Card Reports no additional complaints Resp Reports no additional complaints GI Denies abdominal pain, Denies belching, Denies melena, Denies bloating, Denies change in bowel habits, Reports constipation (Occasional), Denies dysphagia, Denies excessive flatus, Denies dyspepsia, Denies heartburn, Denies diarrhea, Denies loose stools, Denies nausea, Denies odynophagia and Denies vomiting Reports no additional complaints Musc Reports no additional complaints Neuro Reports no additional complaints Psych Reports no additional complaints Endo Reports no additional complaints Physical Exam Vital Signs: Last Vital Signs Pulse 86 09/07/24 13:51 BP 128/84 09/07/24 13:51 Pulse Ox 98 09/07/24 13:51 Oxygen Delivery Method Room Air 09/07/24 13:51 BMI result Body Mass Index 34.7 Const General: healthy appearing and no acute distress Nutritional Appearance: obese Orientation/consciousness: patient oriented x3 Resp Effort & Inspection: normal respiratory effort, able to speak in complete sentences, no tracheal deviation and symmetric chest movement Auscultation: clear to auscultation bilaterally Cardio Rate: regular rate GI Inspection: Yes normal to inspection, No distended and Yes obesity Palpation (GI): Soft to palpation, not firm, nontender and No hepatosplenomegaly present Auscultation: normal bowel sounds General: Yes no CVA tenderness Back/Spine/Pelvis Back: no CVA tenderness Skin General skin exam: elasticity normal, turgor normal and dry skin Neuro General: patient oriented x3 Psych Appearance: grossly normal Mental Status: mental status grossly normal Results Reviewed Results Reviewed: Laboratory Tests 07/13/24 08:21 Total Bilirubin 1.7 H Direct Bilirubin 0.5 AST 31 ALT 27 Alkaline Phosphatase 91 Total Protein 6.7 Albumin 3.9 Lipase 42 LIVER ULTRASOUND WITH ELASTOGRAPHY FINDINGS: Liver: The right lobe of the liver measures 13.6 cm in size. The left lobe of the liver measures 6.4 cm in size. The liver demonstrates increased echotexture, consistent with steatosis. No focal mass or intrahepatic biliary ductal dilatation is identified. There is normal hepatopedal flow in the portal vein. Ultrasound elastography of the liver was performed with 10 separate measurements of the liver parenchyma with the patient in the supine position. Measurements were obtained approximately 2 cm below Bhaskar's capsule and perpendicular to the capsule. Images are of satisfactory quality. The median shear wave velocity is 1.65 m/s (previously 1.75 m/s). The interquartile range/median (IQR/median) is 0.15. Gallbladder and biliary tree: The gallbladder is unremarkable, without evidence of calculi, wall thickening, or pericholecystic fluid. There is no sonographic Raygoza sign. The common bile duct is normal in caliber measuring 3 mm. Right Kidney: The right kidney measures 10.0 cm in length. The right kidney is unremarkable, without evidence of masses, hydronephrosis, or calculi. Pancreas: The pancreatic head, neck, and body are unremarkable. The pancreatic tail is obscured by bowel gas. Abdominal aorta and inferior vena cava: The visualized portions of the abdominal aorta and inferior vena cava are normal in caliber. There is no free fluid in the right upper quadrant. US/US abdomen valentino w elastography IMPRESSION: Hepatic steatosis. The median shear wave velocity is 1.65 m/s, corresponding to a median liver stiffness of 8.24 kPa. The IQR/median value is 0.15. This is indicative of a poor quality data set, and the estimated liver stiffness may be unreliable. Findings are indicative of a low elastography value which rules out advanced chronic liver disease in asymptomatic patients. Assessment & Plan Assessment & Plan (1) Elevated bilirubin: Code(s): R17 - Unspecified jaundice Category: Medical (2) Pancreatic insufficiency: Code(s): K86.89 - Other specified diseases of pancreas Category: Medical (3) Hepatic steatosis: Code(s): K76.0 - Fatty (change of) liver, not elsewhere classified Category: Medical (4) Irritable bowel syndrome with both constipation and diarrhea: Code(s): K58.2 - Mixed irritable bowel syndrome Category: Medical (5) History of adenomatous polyp of colon: Comment: Removed [place] colon[place] [address] Francois Code(s): Z86.0101 - Personal history of adenomatous and serrated colon polyps Category: Medical Plan Total bilirubin elevated normal diarrhea bilirubin. Normal liver enzymes. Patient will repeat ultrasound in 6 months and we will repeat lab work as well in 6 months. Discussed with patient the importance of losing weight. He will return in 2 months when we can discuss going for colonoscopy. Message send to surgical schedulers to book procedure for patient. Patient is agreeable to current plan of care and verbalizes understanding of instructions. He was given the opportunity to ask questions and all questions answered. Thank you for allowing me to participate in his care Medications: Refilled [id number] 24,000-76,000 -120,000 unit (Creon) 1 cap PO QID 100 caps 4RF K58.9 - Irritable bowel syndrome, unspecified Coding Level of Care Code Est Pt Level 3 (32871) Diagnoses Elevated bilirubin R17 Pancreatic insufficiency K86.89 Hepatic steatosis K76.0 Irritable bowel syndrome with both constipation and diarrhea K58.2 History of adenomatous polyp of colon Z86.0101 Time Spent (min) 30 Comment 20 minutes spent with patient and additional 10 minutes spent reviewing his records
--- OUTSIDE RECORDS SUMMARY | 2024-09-07 13:50 | XMS_ITS | Clinical Summary ---
Author Organization [facility] Address [address] [place] [address] Phone Care Team Providers Care Contact And Service Clerks Supervisor Name Role Phone Rebeca Mcghee MD Primary Care Provider Allergies No known active allergies Medications hydrOXYzine HCL (ATARAX) 25 mg tablet Take 1 tablet (25 mg total) by mouth every 6 (six) hours for 3 days. 12 tablet 03/13/2024 Active Medical History Medical History Date Comments Fatty [...] 66 05/07/2024 1:06 AM EST Temperature 36.6 C (97.9 F) 05/06/2024 11:37 PM EST Respiratory Rate 18 05/07/2024 1:06 AM EST [...] Description 10/09/2024 10:20 AM EDT Office Visit [facility] Cardiology [facility] [address] [place] [address] Souleymane Andre MD [address] [place] [address] [address] [place] [address] Health Maintenance Due Date Last Done Comments [...] - 2023-2 5 season) 2023 Influenza Vaccine (Season Ended) [...] Procedure Name Priority Date/Time Associated Diagnosis Comments COMPREHENSIVE METABOLIC PANEL STAT 05/06/2024 6:03 PM EST from Last 3 Months or Most Recently Relevant to Health Maintenance Results * Comprehensive metabolic panel (05/06/2024 6:03 PM EST) Sodium 138 133 - 145 mmol/L LAB CHEMISTRY METHOD 05/06/2024 6:32 PM [facility] Potassium 4.3 3.5 - 5.5 mmol/L LAB CHEMISTRY METHOD 05/06/2024 6:32 PM [facility] Chloride 107 96 - 110 mmol/L LAB CHEMISTRY METHOD 05/06/2024 6:32 PM [facility] CO2 28 21 - 32 mmol/L LAB CHEMISTRY METHOD 05/06/2024 6:32 PM [facility] Anion Gap 3 3 - 11 LAB CHEMISTRY METHOD 05/06/2024 6:32 PM [facility] Glucose 99 70 - 100 mg/dL LAB CHEMISTRY METHOD 05/06/2024 6:32 PM [facility] BUN 16 5 - 25 mg/dL LAB CHEMISTRY METHOD 05/06/2024 6:32 PM [facility] Creatinine 0.91 0.70 - 1.30 mg/dL LAB CHEMISTRY METHOD 05/06/2024 6:32 PM [facility] eGFR 100 >=60 mL/min/1. 73m2 LAB CHEMISTRY METHOD 05/06/2024 6:32 PM [facility] Comment:Calculation based on the Chronic Kidney Disease Epidemiology Collaboration (CKD-EPI) equation refit without adjustment for race. BUN/Creatinine Ratio 17.6 LAB CHEMISTRY METHOD 05/06/2024 6:32 PM [facility] Calcium 9.0 8.5 - 10.5 mg/dL LAB CHEMISTRY METHOD 05/06/2024 6:32 PM [facility] AST (SGOT) 22 10 - 42 unit/L LAB CHEMISTRY METHOD 05/06/2024 6:32 PM [facility] ALT (SGPT) 28 10 - 60 unit/L LAB CHEMISTRY METHOD 05/06/2024 6:32 PM [facility] Alkaline Phosphatase 83 42 - 121 unit/L LAB CHEMISTRY METHOD 05/06/2024 6:32 PM [facility] Total Protein 6.8 6.0 - 8.0 g/dL LAB CHEMISTRY METHOD 05/06/2024 6:32 PM [facility] Albumin 3.6 3.2 - 5.0 g/dL LAB CHEMISTRY METHOD 05/06/2024 6:32 PM [facility] Total Bilirubin 0.9 0.0 - 1.4 mg/dL LAB CHEMISTRY METHOD 05/06/2024 6:32 PM [facility] Blood Venous blood specimen / Unknown Venipuncture / Unknown 05/06/2024 6:03 PM EST 05/06/2024 6:09 PM EST us Bautista Dodge DO LAB BLOOD ORDERABLES Final Res ult [facility] [address] [place] [address], from Last 3 Months or Most Recently Relevant to Health Maintenance Insurance [facility] Care Teams Contact And Service Clerks Supervisor Relationship Specialty Start Date End Date Rebeca Mcghee MD [address] [place] [address] PCP - General Internal Medicine 03/13/24
[2024-09-07 13:51] VITALS: BP 128/84; PULSE 86; O2SAT 98; BMI 34.7
== END 2024-09-07 14:22 | disposition home or self-care (01) ==
LOC: HO.HGI 13:22
PROVIDERS: PCP Nurse Practitioner Family; Visit Provider Nurse Practitioner Family
DX: K76.0 Fatty (change of) liver, not elsewhere classified (principal); K86.89 Other specified diseases of pancreas; K58.2 Mixed irritable bowel syndrome; Z86.0101 Personal history of adenomatous and serrated colon polyps
CPT/HCPCS: 99213

== ENCOUNTER → 2024-09-07 13:21 | Outpatient (BNVA) | payer OTHER, SELFPAY | PROVIDERS: PCP Nurse Practitioner Family; Visit Provider Nurse Practitioner Family | DX: K86.89 Other specified diseases of pancreas (principal); K76.0 Fatty (change of) liver, not elsewhere classified; K58.2 Mixed irritable bowel syndrome; Z86.0101 Personal history of adenomatous and serrated colon polyps | CPT/HCPCS: 99212 ==

== ENCOUNTER 2024-10-11 09:07 | Outpatient (AMB) | payer OTHER, SELFPAY ==
--- OUTSIDE RECORDS SUMMARY | 2024-10-11 09:24 | XMS_ITS | Encounter Summary ---
Author Organization [facility] Address [address] [place] [address] Care Team Providers Care Uniform Designer Name Role Phone Rebeca Mcghee MD Primary Care Provider [phone] Reason for Visit * Reason Onset Date Comments ROCT - [id number] 10/09/2024 Encounter Details Date Type Department Care Team (Late st Contact Info) Description 10/09/2024 Telephone [facility] [address] [place] [address] Souleymane Andre MD [address] [place] [address] [address] [place] [address] EOCB - [id number] Social History Tobacco Use Types Packs/Day Years Used Date Smoking Tobacco: Former Cigarettes Smokeless Tobacco: Never Alcohol Use Standard Drinks/Week Comments Never 0 (1 standard drink = 0.6 oz pur e alcohol) Sex and Gender Information Value Date Recorded [...] documented in this encounter Progress Notes * Ana Leiva - 10/09/2024 11:28 AM EDT PA for CPT code 43878 submitted and pending with insurance. Conformation Number: [id number]. documented in this encounter Plan of Treatment Upcoming Encounters Date Type Department Care Team (Late st Contact Info) Description 11/02/2024 12:30 PM EDT Ancillary Procedure [facility] [address] [address] 01/18/2025 10:00 AM EST Ancillary Procedure [facility] [address] [address] documented as of this encounter Visit Diagnoses Not on filedocumented in this encounter Care Teams Uniform Designer Relationship Specialty Start Date End Date Rebeca Mcghee MD [address] [place] [address] PCP - General Internal Medicine 03/13/24 documented as of this encounter
[2024-10-11 09:31] VITALS: BP 120/84; PULSE 87; TEMP 36.7; O2SAT 98; BMI 34.7
--- NOTE | 2024-10-11 09:31 | A.OFFPC_ITS ---
Vital Signs 10/11/24 09:31 Height 5 ft 8 in Weight 228 lb BMI 34.7 BP 120/84 Blood Pressure Location Lt brachial Position Sitting Pulse 87 Pulse Source Pulse Oximeter Temp 98.0 F Temp Source Oral Pulse Oximetry (%) 98 Oxygen Delivery Method Room Air Intake Visit Reasons: PE Intake Note: pt is here for PE, he is fasting to have labs drawn and last colonoscopy was 11/2023 @ [facility] Adult Health Clinical Nurse Specialist Required: Yes Adult Health Clinical Nurse Specialist Language: Vietnamese Accompanied by: Self / Same As Patient Allergies No Known Allergies Allergy (Verified 10/11/24 10:15) Medication List - Last Reconciled 10/11/24 by Rebeca Mcghee MD amlodipine 10 mg PO DAILY buspirone 7.5 mg PO DAILY cholecalciferol (vitamin D3) 50 mcg PO DAILY [id number] 24,000-76,000 -120,000 unit (Creon) 1 cap PO QID Tobacco use date assessed: 03/19/24 Dental Screening Dental Screen Date: 03/19/24 HPI PE HPI Details - The patient is a 54-year-old male her e for his physical exam - Hypertension: Managed with amlodipine 10 mg, with blood pressure stable and controlled on present treatment - Anxiety: Treated with buspirone 7.5 mg daily, which has been helping with controlling his anxiety attacks - History of kidney stones, advised to c onsume lemon water to prevent recurrence. currently asymptomatic - Preventative care: Tetanus vaccination up to date, shingles vaccination recommended, prostate cancer screening discussed. -history of pancreatic insufficiency cur rently followed by GI, on Creon [facility] Medical History (Updated 10/11/24 @ 12:49 by Rebeca Mcghee MD) History of adenomatous polyp of colon Intermittent palpitations Anxiety with depression BPPV (benign paroxysmal positional vertigo) Hepatic steatosis Pancreatic insufficiency Kidney stone GERD (gastroesophageal reflux disease) Hypertension Surgical History Hx of colonoscopy Family History Father No problems noted. Mother Alzheimer disease Social History Housing: Apartment Alcohol intake: never Patient Tobacco Use Status: Former Tobacco user e-Cigarette/Vaping Use: Never Used Second Hand Smoke Exposure: No service: No Current occupational status: employed Cognitive needs: No Hearing needs: No Vision needs: No Questionnaire Thrive Questionnaire Date Thrive assessed: 10/11/24 I am a: Patient What is your living situation today?: I have a place to live, but I am worried about losing it in the future Within the past 12 months, did the food you bought not last and you didn't have the money to get more?: Never true Within the past 12 months, did you worry whether your food would run out before you got money to buy more?: Never true Do you have trouble paying for medicines?: No Do you have trouble getting transportation to medical appointments?: No Do you have trouble paying your heating and electricity bill?: No Do you have trouble taking care of your child, family member or friend?: No Do you have trouble with day-to-day activities such as bathing, preparing meals, shopping, managing finances, etc.?: No Are you currently unemployed and looking for a job?: No Are you interested in more education?: Yes Currently or been in a relationship where the following occur: I choose not to answer THRIVE Score: 1 AUDIT C Alcohol Use Questionnaire (AUDIT-C) 1. How often do you have a drink containing alcohol?: Never 3. How often do you have six or more drinks on one occasion?: Never Total Score: 0 Score Reviewed/Action Taken: Yes ARLEY-7 AMB Questionnaire ARLEY-7 Date ARLEY - 7 assessed: 05/10/24 Source: Developed by Drs. Shorty Shoemaker, Devi Webber, Edgardo Jernigan and colleagues, with an educational john from [employer]. Review of Systems Const Reports no additional complaints Eyes Reports blurry vision (Overdue for eye exam) ENT Reports no additional complaints Card Denies chest pain at rest, Denies chest pain with activity, Denies irregular heart rhythm, Denies lightheadedness and Denies dyspnea Resp Denies cough and Denies dyspnea GI Denies abdominal pain, Denies melena, Denies bloating, Denies change in bowel habits and Denies heartburn Reports no additional complaints Musc Reports no additional complaints Skin/Breast Denies new lesions and Denies rash Neuro Reports no additional complaints Psych Reports no additional complaints Endo Reports no additional complaints Esvin/Lymph Reports no additional complaints Aller/Immun Reports no additional complaints Physical exam (Primary Care) Vital Signs: Last Vital Signs Temp 98.0 F 10/11/24 09:31 Pulse 87 10/11/24 09:31 BP 120/84 10/11/24 09:31 Pulse Ox 98 10/11/24 09:31 Oxygen Delivery Method Room Air 10/11/24 09:31 BMI result Body Mass Index 34.7 Tobacco/Smoking Status: Tobacco use Status Tobacco use date assessed 03/19/24 10/11/24 09:32 Patient Tobacco Use Status Former Tobacco user 10/11/24 09:32 e-Cigarette/Vaping Use Never Used 10/11/24 09:32 Thrive Assessment: Date of Thrive Assessment Date Thrive assessed 10/11/24 10/11/24 09:32 Currently or been in a relationship where the following occur: I choose not to answer Const General: no acute distress and alert Orientation/consciousness: patient oriented x3 HENMT Head: Yes normocephalic Ears: external ears normal General nose exam: Normal external nose present Face and sinus: Yes face symmetric Mouth: Normal oral and palatal mucosa present, oropharynx normal and moist mucous membranes Eyes General: appearance normal, both eyes and all related structures Neck Neck: Yes full ROM, Yes no lymphadenopathy and Yes supple Chest Chest palpation & inspection: normal inspection of the chest Resp Effort & Inspection: normal respiratory effort and able to speak in complete sentences Auscultation: clear to auscultation bilaterally Cardio Rate: regular rate Rhythm: regular rhythm Heart sounds: S1 normal heart sound present and S2 normal heart sound present GI Palpation (GI): Soft to palpation, nontender, no guarding and no masses Auscultation: normal bowel sounds General: Yes no CVA tenderness Back/Spine/Pelvis Back: no CVA tenderness and No back tenderness Skin General skin exam: no rashes or lesions noted Neuro General: patient oriented x3, gait normal, moves all extremities, Normal light touch and pain sensation, no focal motor deficits and CN's II-XI intact bilaterally Cognition (Neuro): normal cognition Gait exam (Neuro): Normal gait present Motor exam (neuro): 5/5 motor strength present throughout Extrem General: Yes normal to inspection, Yes full ROM, Yes no joint enlargement, Yes no pedal edema and Yes normal gait Psych Appearance: grossly normal and well kempt Mental Status: mental status grossly normal Speech and movement: Normal speech and movement present Affect: normal affect Coding Level of Care Code Est Pt Prev Care 40-64y(40237) Diagnoses Annual visit for general adult medical examination with abnormal findings Z00.01 Hypertension, unspecified type I10 Hypertension type: unspecified Pancreatic insufficiency K86.89 History of adenomatous polyp of colon Z86.0101 Anxiety with depression F41.8 Encounter for screening for malignant neoplasm of prostate Z12.5 Assessment & Plan Assessment & Plan (1) Annual visit for general adult medical examination with abnormal findings: Code(s): Z00.01 - Encounter for general adult medical examination with abnormal findings Plan: Will check appropriate labs. Recommended dental visit every 6 months and regular eye exams, at least every 2 years. Take adequate calcium in diet and vitamin-D 3 at 2000 IU per cap once a day, in addition to weight-bearing exercises to help maintain good muscle tone and weight control. Instructed to do self-testicular exam check for any mass. Reminded to get yearly flu shot, up-to-date with his Tdap, advised to get shingles vaccine, which is available to be given at the pharmacy. (2) Hypertension: Code(s): I10 - Essential (primary) hypertension Category: Medical Qualifiers: Hypertension type: unspecified Qualified Code(s): I10 - Essential (p rimary) hypertension Plan: Hypertension controlled on amlodipine 10 mg taken once a day. (3) Pancreatic insufficiency: Code(s): K86.89 - Other specified diseases of pancreas Category: Medical Plan: Followed by GI clinic, currently on Creon (4) History of adenomatous polyp of colon: Comment: Removed [place] colon[place] [address] Francois Code(s): Z86.0101 - Personal history of adenomatous and serrated colon polyps Category: Medical Plan: Has appointment for his colonoscopy screening already later this year. Followed by GI clinic (5) Anxiety with depression: Code(s): F41.8 - Other specified anxiety disorders Category: Medical Plan: Controlled on buspirone 7.5 mg taken once daily (6) Encounter for screening for malignant neoplasm of prostate: Code(s): Z12.5 - Encounter for screening for malignant neoplasm of prostate Plan: Ordered a total and free PSA level Orders: Orders PSA,Total (Free>4and<10) Today Z12.5 - Encounter for screening for malignant neoplasm of prostate
== END 2024-10-11 10:23 | disposition home or self-care (01) ==
LOC: HO.HMCC 09:08
PROVIDERS: PCP Internal Medicine; Visit Provider Internal Medicine
DX: Z00.01 Encounter for general adult medical examination with abnormal findings (principal); I10 Essential (primary) hypertension; K86.89 Other specified diseases of pancreas; Z86.0101 Personal history of adenomatous and serrated colon polyps; F41.8 Other specified anxiety disorders; Z12.5 Encounter for screening for malignant neoplasm of prostate

== ENCOUNTER 2024-10-11 09:07 | Outpatient (REF) | payer OTHER, SELFPAY ==
[2024-10-11 13:53] LABS: Alanine Aminotransferase 29 U/L (0-40); Anion Gap 9 (12-20); Aspartate Amino Transferase 31 U/L (5-37); Blood Urea Nitrogen 15 mg/dL (9-16); Calcium 8.8 mg/dL (8.4-10.2); Carbon Dioxide 28 mmol/L (22-29); Chloride 107 mmol/L (96-108); Cholesterol 136 mg/dL (<200); Estimated Glomerular Filt Rate > 60; HDL Cholesterol 52 mg/dL (>40); Potassium 4.0 mmol/L (3.3-5.1); Sodium 140 mmol/L (135-145); Triglycerides 52 mg/dL (<150)
[2024-10-11 14:03] LABS: PSA,Total (Free>4and<10) 1.02 ng/mL (0.00-4.00)
[2024-10-11 14:51] LABS: Free T4 (Free Thyroxine) 0.93 ng/dL (0.71-1.85)
== END 2024-10-11 09:08 | disposition home or self-care (01) ==
LOC: HO.HMGCLDS 09:07
PROVIDERS: PCP Internal Medicine; Visit Provider Internal Medicine
DX: Z00.01 Encounter for general adult medical examination with abnormal findings (principal); Z13.220 Encounter for screening for lipoid disorders; Z13.1 Encounter for screening for diabetes mellitus; Z12.5 Encounter for screening for malignant neoplasm of prostate; I10 Essential (primary) hypertension; K86.89 Other specified diseases of pancreas; F41.8 Other specified anxiety disorders; R00.2 Palpitations; Z86.0101 Personal history of adenomatous and serrated colon polyps
CPT/HCPCS: 36415; 80048; 80061; 84153; 84439; 84443; 84450; 84460; 99396

== ENCOUNTER 2024-10-26 10:59 | Outpatient (AMB) | payer OTHER, SELFPAY ==
--- NOTE | 2024-10-26 11:00 | A.OFFVIS_ITS ---
Vital Signs 10/26/24 11:12 Height 5 ft 8 in Weight 229 lb BMI 34.8 BP 112/86 Blood Pressure Location Rt brachial Position Sitting Pulse 94 Pulse Source Pulse Oximeter Pulse Oximetry (%) 98 Oxygen Delivery Method Room Air Intake Visit Reasons: Fatty liver + IBS mgmt. Intake Note: Established patient for mgmt of fatty liver + IBS. Pre op colo. Labs done. US scheduled. CC; Pt denies any GI changes or new sx since last visit. Pt is here to review prep instructions and ask a few questions regarding the procedure. Junior Database Administrator Required: Yes Junior Database Administrator Services: Junior Database Administrator Present Junior Database Administrator Name: Paola [id number] Information Interpreted: clinical only Accompanied by: Self / Same As Patient Allergies No Known Allergies Allergy (Verified 10/26/24 11:01) HPI HPI Fatty liver + IBS mgmt.: Details: LAST VISIT: Elevated bilirubin Pancreatic insufficiency Hepatic steatosis Irritable bowel syndrome with both constipation and diarrhea History of adenomatous polyp of colon Plan Total bilirubin elevated normal direct bilirubin. Normal liver enzymes. Patient will repeat ultrasound in 6 months and we will repeat lab work as well in 6 months. Discussed with patient the importance of losing weight. He will return in 2 months when we can discuss going for colonoscopy. Message send to surgical schedulers to book procedure for patient. Patient is agreeable to current plan of care and verbalizes understanding of instructions. He was given the opportunity to ask questions and all questions answered. ? Thank you for allowing me to participate in his care Refilled [id number] 24,000-76,000 -120,000 unit (Creon) 1 cap PO QID 100 caps 4RF K58.9 TODAY'S VISIT Patient is here today for follow-up and to discuss going for colonoscopy. Patient denies any issues with anesthesia in the past. Denies any history of sleep apnea. Not on any anticoagulation medication. History of tubular adenoma in the past. Patient is nervous about going for colonoscopy. History of anxiety on BuSpar. Patient reports to be doing well. Denies any acid reflux. Denies dyspepsia, dysphagia or odynophagia. Reports that he is moving his bowels well, occasional constipation if he does not drink enough water. [facility] Medical History History of adenomatous polyp of colon Intermittent palpitations Anxiety with depression BPPV (benign paroxysmal positional vertigo) Hepatic steatosis Pancreatic insufficiency Kidney stone GERD (gastroesophageal reflux disease) Hypertension Surgical History Hx of colonoscopy Family History Father No problems noted. Mother Alzheimer disease Social History Housing: Apartment Alcohol intake: never Patient Tobacco Use Status: Former Tobacco user e-Cigarette/Vaping Use: Never Used Second Hand Smoke Exposure: No service: No Current occupational status: employed Cognitive needs: No Hearing needs: No Vision needs: No Review of Systems Const Denies weight gain and Denies weight loss ENT Reports no additional complaints, Denies dysphagia and Denies odynophagia Card Reports no additional complaints Resp Reports no additional complaints GI Denies abdominal pain, Denies belching, Denies melena, Denies bloating, Denies c hange in bowel habits, Reports constipation (Occasional), Denies dysphagia, Denies excessive flatus, Denies dyspepsia, Denies heartburn, Denies diarrhea, Denies loose stools, Denies nausea, Denies odynophagia and Denies vomiting Reports no additional complaints Musc Reports no additional complaints Neuro Reports no additional complaints Psych Reports no additional complaints Endo Reports no additional complaints Physical Exam Vital Signs: Last Vital Signs Pulse 94 10/26/24 11:12 BP 112/86 10/26/24 11:12 Pulse Ox 98 10/26/24 11:12 Oxygen Delivery Method Room Air 10/26/24 11:12 BMI result Body Mass Index 34.8 Const General: healthy appearing and no acute distress Nutritional Appearance: obese Orientation/consciousness: patient oriented x3 Resp Effort & Inspection: normal respiratory effort, able to speak in complete sentences, no tracheal deviation and symmetric chest movement Auscultation: clear to auscultation bilaterally Cardio Rate: regular rate GI Inspection: Yes normal to inspection, No distended and Yes obesity Palpation (GI): Soft to palpation, not firm, nontender and No hepatosplenomegaly present Auscultation: normal bowel sounds General: Yes no CVA tenderness Back/Spine/Pelvis Back: no CVA tenderness Skin General skin exam: elasticity normal, turgor normal and dry skin Neuro General: patient oriented x3 Psych Appearance: grossly normal Mental Status: mental status grossly normal Assessment & Plan Assessment & Plan (1) Elevated bilirubin: Code(s): R17 - Unspecified jaundice Category: Medical (2) Pancreatic insufficiency: Code(s): K86.89 - Other specified diseases of pancreas Category: Medical (3) Hepatic steatosis: Code(s): K76.0 - Fatty (change of) liver, not elsewhere classified Category: Medical (4) Irritable bowel syndrome with both constipation and diarrhea: Code(s): K58.2 - Mixed irritable bowel syndrome Category: Medical (5) History of adenomatous polyp of colon: Code(s): Z86.0101 - Personal history of adenomatous and serrated colon polyps Category: Medical Plan Long discussion with patient about his prep. Patient is anxious unable to focus on instructions. Myself and the interpreters try to calm patient down. What to expect before during and after procedure discussed with patient. Stressed the importance of good bowel prep and clear liquid diet day before procedure. Patient will start Dulcolax 1 week before procedure 2 tablets every evening and day before procedure feel take 4 tablets at noon. Split MiraLax prep also discussed with patient. Patient will follow-up in our office after the procedure, sooner on as needed basis. He is agreeable to this plan and verbalizes understanding of instructions. He was given the opportunity to ask questions and all questions answered. Thank you for allowing me to participate in his care Medications: New bisacodyl (Dulcolax (bisacodyl)) Start taking 2 tablet every night 7 days before the procedure and 1 day before procedure take 4 tablets at noon time followed by MiraLax prep 10 mg (2 x 5 mg) PO BEDTIME 16 tabs 0RF Z12.11 - Encounter for screening for malignant neoplasm of colon polyethylene glycol 3350 (Miralax) As directed by gastroenterology department at [facility] 238 grams PO ONCE 238 grams 0RF Z12.11 - Encounter for screening for malignant neoplasm of colon Coding Level of Care Code Est Pt Level 4 (17924) Complex EM visit Add On G2211 Diagnoses Elevated bilirubin R17 Pancreatic insufficiency K86.89 Hepatic steatosis K76.0 Irritable bowel syndrome with both constipation and diarrhea K58.2 History of adenomatous polyp of colon Z86.0101 Time Spent (min) 35 Comment 25 minutes spent with patient and additional 10 minutes spent reviewing his records
--- OUTSIDE RECORDS SUMMARY | 2024-10-26 11:08 | XMS_ITS | Clinical Summary ---
Author Organization [facility] Address [address] [place] [address] Phone Care Team Providers Care Oil Field Rig Builder Name Role Phone Rebeca Mcghee MD Primary Care Provider Allergies No known active allergies Medications hydrOXYzine HCL (ATARAX) 25 mg tablet Take 1 tablet (25 mg total) by mouth every 6 (six) hours for 3 days. 12 tablet 4 Active amLODIPine (NORVASC) 10 mg tablet Take 1 tablet (10 mg total) by mouth 1 (one) time each day. 4 Active cholecalciferol (VITAMIN D-3) 50 mcg (2,000 unit) capsule TOME 1 C PSULA POR V A ORAL TODOS LOS D 5 Active busPIRone (BUSPAR) 7.5 mg tablet TOME 1 TABLETA POR V A ORAL DOS VECES AL D A 5 Active Creon 24,000-76,000 -120,000 unit capsule TOME 1 C PSULA POR V A ORAL CUATRO VECES AL D A WITH MEALS AND OR SNACKS 5 10/10/19 25 Discontinu ed(Patient Discharge) Active Problems Problem Noted Date Diagnosed Date Other chest pain 10/09/2024 Assessment & Plan (10/09/2024 10:28 AM EDT): The patient came for evaluation due to episodes of chest pain. Description of symptoms: Atypical Risk factors for CAD: Hypertension and former smoker Management plan: 1. Ischemic evaluation with a stress test. 2. Also, will order an echocardiogram to rule out any structural heart disease that may be contributing to the patient's symptoms: Orders: Exercise stress test; Future Comprehensive metabolic panel; Future CBC and differential; Future Lipid panel with reflex to direct LDL; Future Palpitations 10/08/2024 Assessment & Plan (10/09/2024 10:28 AM EDT): The patient has been experiencing episodes of palpitations. Previous Holter monitor did not show any arrhythmias but the patient did not have any symptoms during the monitoring period. As such, we will proceed with further evaluation with a 30-day ambulatory loop monitor. Will also order an echocardiogram to rule out any underlying structural heart disease. Finally, we will order laboratory testing to rule out any electrolyte abnormality or thyroid disorder. Orders: Ambulatory referral to Cardiology ECG 12 lead Transthoracic echocardiogram (TTE) complete with PRN contrast, bubble, strain, and 3D order panel; Future Cardiac event monitor; Future Thyroid stimulating hormone; Future Cardiac murmur 10/08/2024 Encounters Date Type Department Care Team Description 10/19/2024 7:00 AM EDT Ancillary Procedure [facility] Cardiology [facility] [address] [place] [id number] Palpitations 10/09/2024 10:20 AM EDT Office Visit [facility] Cardiology [facility] [address] [facility] [address] [place] [address] Alex Tucker MD Other chest pain (Primary Dx); Palpitations; Benign essential HTN; Cardiac murmur, unspecified 10/09/2024 Telephone [facility] Cardiology [facility] [address] [place] [address] Alex Tucker MD ROCT - 65476 ; ROCT - 76536 (Ok to Book); ROCT Enrollment (Enrolling patient for 30 Day ROCT) from Last 3 Months Medical History Medical History Date Comments Fatty liver Anxiety GERD (gastroesophageal reflux disease) Hepatic steatosis Hypertension Kidney stones Pancreatic insufficiency Depression Social History Tobacco Use Types Packs/Day Years Used Date Smoking Tobacco: Former Cigarettes Smokeless Tobacco: Never Tobacco Cessation:Counseling Given: Not Answered Alcohol Use Standard Drinks/Week Comments Never 0 [...] Sign Reading Time Taken Comments Blood Pressure 138/80 10/09/2024 9:49 AM EDT Pulse 79 10/09/2024 9:49 AM EDT Temperature 36.6 C (97.9 F) 05/06/2024 11:37 PM EST Respiratory Rate 18 05/07/2024 1:06 AM EST Oxygen Saturation 99% 10/09/2024 9:49 AM EDT Inhaled Oxygen Concentration - - Weight 106 kg (234 lb) 10/09/2024 9:49 AM EDT Height 180.3 cm (5' 11 ) 10/09/2024 9:49 AM EDT Body Mass Index 32.64 10/09/2024 9:49 AM EDT Plan of Treatment Upcoming Encounters Date Type Department Care Team (Late st Contact Info) Description 11/02/2024 12:30 PM EDT Ancillary Procedure [facility] [address] [facility] [address] [address] 01/18/2025 10:00 AM EST Ancillary Procedure [facility] Cardiology [facility] [address] [address] Health Maintenance Due Date Last Done Comments DTaP,Tdap,and Td Vaccines (1 - Tdap) 05/22/1987 Hepatitis B Vaccines (1 of 3 - 19+ 3-dose series) 05/22/1987 Pneumococcal Vaccine: 50+ Years (1 of 1 - PCV) 2018 Zoster Vaccines (1 of 2) 2018 Colorectal Cancer Screening: Colonoscopy 02/14/2022 HIV Screening 02/14/2022 Hepatitis C Screening 02/14/2022 Social Influencers of Health Screening 02/14/2022 COVID-19 Vaccine ( season) 2023 Depression Screening 03/14/2024 Influenza Vaccine (#1) 2024 Hypertension/CHF/CAD Annual BMP Blood Test 10/12/2025 10/12/2024, 05/06/2024, 03/13/2024, Additional history exists Cholesterol Screening (Lipid Panel) 10/12/2029 10/12/2024 HIB Vaccines Aged Out No longer eligi [...] 20 months Aged Out No longer eligible based on patient's age to complete this topic Varicella Vaccines Aged Out No longer eligible based on patient's age to complete this topic Procedures Procedure Name Priority Date/Time Associated Diagnosis Comments CBC WITH AUTO DIFFERENTIAL Routine 10/12/2024 7:53 AM EDT Other chest pain COMPREHENSIVE METABOLIC PANEL Routine 10/12/2024 7:53 AM EDT Other chest pain CBC AND DIFFERENTIAL Routine 10/12/2024 7:53 AM EDT Other chest pain LIPID PANEL WITH REFLEX TO DIRECT LDL Routine 10/12/2024 7:53 AM EDT Other chest pain THYROID STIMULATING HORMONE Routine 10/12/2024 7:53 AM EDT Palpitations ECG 12-LEAD Routine 10/09/2024 10:04 AM EDT Palpitations Cardiac murmur, unspecified from Last 3 Months Results * Lipid panel with reflex to direct LDL (10/12/2024 7:53 AM EDT) Cholesterol 138 0 - 200 mg/dL LAB CHEMISTRY METHOD 10/12/2024 10:46 AM EDT [facility] Triglycerides 48 0 - 150 mg/dL LAB CHEMISTRY METHOD 10/12/2024 10:46 AM EDT [facility] HDL 55 >=40 mg/dL LAB CHEMISTRY METHOD 10/12/2024 10:46 AM EDT [facility] LDL Calculated 73 0 - 100 mg/dL LAB CHEMISTRY METHOD 10/12/2024 10:46 AM EDT [facility] VLDL Cholesterol Remy 9.6 mg/dL LAB CHEMISTRY METHOD 10/12/2024 10:46 AM EDT [facility] Non HDL Chol. (LDL+VLDL) 83 <145 mg/dL LAB CHEMISTRY METHOD 10/12/2024 10:46 AM EDT [facility] Chol/HDL Ratio 2.5 0.0 - 4.4 LAB CHEMISTRY METHOD 10/12/2024 10:46 AM EDT [facility] Blood Venous blood specimen / Unknown Venipuncture / Unknown 10/12/2024 7:53 AM EDT 10/12/2024 7:53 AM EDT Alex Tucker MD LAB BLOOD ORDERABLES F inal Result [facility] [address] [place] [address], * (ABNORMAL) CBC auto differential (10/12/2024 7:53 AM EDT) WBC 7.9 4.8 - 10.8 K/[facility] LAB HEMETOLOGY METHOD 10/12/2024 10:17 AM T [facility] RBC 6.10(H) 4.50 - 5.50 M/mcL LAB HEMETOLOGY METHOD 10/12/2024 10:17 AM EDT [facility] Hemoglobin 17.5 13.5 - 17.5 g/dL LAB HEMETOLOGY METHOD 10/12/2024 10:17 AM [facility] Hematocrit 53.6 42.0 - 54.0 % LAB HEMETOLOGY METHOD 10/12/2024 10:17 AM [facility] MCV 88.6 79.0 - 98.0 FL LAB HEMETOLOGY METHOD 10/12/2024 10:17 AM [facility] MCH 28.9 27.0 - 32.0 pcg LAB HEMETOLOGY METHOD 10/12/2024 10:17 AM [facility] MCHC 32.6 32.0 - 37.0 g/dL LAB HEMETOLOGY METHOD 10/12/2024 10:17 AM [facility] RDW 13.2 11.0 - 15.0 % LAB HEMETOLOGY METHOD 10/12/2024 10:17 AM [facility] Platelets 150 130 - 400 K/mcL LAB HEMETOLOGY METHOD 10/12/2024 10:17 AM [facility] MPV 12.1(H) 7.0 - 11.0 FL LAB HEMETOLOGY METHOD 10/12/2024 10:17 AM [facility] NRBC 0.0 <1.0 % LAB HEMETOLOGY METHOD 10/12/2024 10:17 AM [facility] NRBC Absolute 0.00 <0.10 K/mcL LAB HEMETOLOGY METHOD 10/12/2024 10:17 AM [facility] Neutrophils Relative 63.0 % LAB HEMETOLOGY METHOD 10/12/2024 10:17 AM [facility] Lymphocytes Relative 25.6 % LAB HEMETOLOGY METHOD 10/12/2024 10:17 AM [facility] Monocytes Relative 8.4 % LAB HEMETOLOGY METHOD 10/12/2024 10:17 AM EDT [facility] Eosinophils Relative 2.0 % LAB HEMETOLOGY METHOD 10/12/2024 10:17 AM T [facility] Basophils Relative 0.6 % LAB HEMETOLOGY METHOD 10/12/2024 10:17 AM [facility] Immature Granulocytes Relative 0.4 % LAB HEMETOLOGY METHOD 10/12/2024 10:17 AM EDT [facility] Neutrophils Absolute 4.94 1.50 - 7.00 K/mcL LAB HEMETOLOGY METHOD 10/12/2024 10:17 AM T [facility] Lymphocytes Absolute 2.01 1.00 - 5.00 K/mcL LAB HEMETOLOGY METHOD 10/12/2024 10:17 AM [facility] Monocytes Absolute 0.66 0.20 - 1.00 K/mcL LAB HEMETOLOGY METHOD 10/12/2024 10:17 AM [facility] Eosinophils Absolute 0.16 0.00 - 0.50 K/mcL LAB HEMETOLOGY METHOD 10/12/2024 10:17 AM [facility] Basophils Absolute 0.05 0.00 - 0.20 K/mcL LAB HEMETOLOGY METHOD 10/12/2024 10:17 AM [facility] Immature Granulocytes Absolute 0.03 0.00 - 0.03 K/mcL LAB HEMETOLOGY METHOD 10/12/2024 10:17 AM T [facility] Blood Venous blood specimen / Unknown Venipuncture / Unknown 10/12/2024 7:53 AM EDT 10/12/2024 7:53 AM EDT Alex Tucker MD LAB BLOOD ORDERABLES F inal Result [facility] [address] [place] [address], * Thyroid stimulating hormone (10/12/2024 7:53 AM EDT) [facility] TSH 0.55 0.40 - 4.00 mcIU/mL LAB CHEMISTRY METHOD 10/12/2024 11:36 AM [facility] Blood Venous blood specimen / Unknown Venipuncture / Unknown 10/12/2024 7:53 AM EDT 10/12/2024 7:53 AM EDT Alex Tucker MD LAB BLOOD ORDERABLES F inal Result [facility] [address] [place] [address], * (ABNORMAL) Comprehensive metabolic panel (10/12/2024 7:53 AM EDT) [facility] Sodium 139 133 - 145 mmol/L LAB CHEMISTRY METHOD 10/12/2024 10:56 AM [facility] Potassium 4.5 3.5 - 5.5 mmol/L LAB CHEMISTRY METHOD 10/12/2024 10:56 AM [facility] Chloride 107 96 - 110 mmol/L LAB CHEMISTRY METHOD 10/12/2024 10:56 AM [facility] CO2 30 21 - 32 mmol/L LAB CHEMISTRY METHOD 10/12/2024 10:56 AM [facility] Anion Gap 2(L) 3 - 11 LAB CHEMISTRY METHOD 10/12/2024 10:56 AM [facility] Glucose 95 70 - 100 mg/dL LAB CHEMISTRY METHOD 10/12/2024 10:56 AM [facility] BUN 16 5 - 25 mg/dL LAB CHEMISTRY METHOD 10/12/2024 10:56 AM [facility] Creatinine 0.91 0.70 - 1.30 mg/dL LAB CHEMISTRY METHOD 10/12/2024 10:56 AM [facility] eGFR 99 >=60 mL/min/1. 73m2 LAB CHEMISTRY METHOD 10/12/2024 10:56 AM [facility] Comment:Calculation based on the Chronic Kidney Disease Epidemiology Collaboration (CKD-EPI) equation refit without adjustment for race. BUN/Creatinine Ratio 17.6 LAB CHEMISTRY METHOD 10/12/2024 10:56 AM [facility] Calcium 8.7 8.5 - 10.5 mg/dL LAB CHEMISTRY METHOD 10/12/2024 10:56 AM [facility] AST (SGOT) 21 10 - 42 unit/L LAB CHEMISTRY METHOD 10/12/2024 10:56 AM [facility] ALT (SGPT) 31 10 - 60 unit/L LAB CHEMISTRY METHOD 10/12/2024 10:56 AM [facility] Alkaline Phosphatase 92 42 - 121 unit/L LAB CHEMISTRY METHOD 10/12/2024 10:56 AM [facility] Total Protein 6.7 6.0 - 8.0 g/dL LAB CHEMISTRY METHOD 10/12/2024 10:56 AM [facility] Albumin 3.7 3.2 - 5.0 g/dL LAB CHEMISTRY METHOD 10/12/2024 10:56 AM [facility] Total Bilirubin 1.0 0.0 - 1.4 mg/dL LAB CHEMISTRY METHOD 10/12/2024 10:56 AM [facility] Blood Venous blood specimen / Unknown Venipuncture / Unknown 10/12/2024 7:53 AM EDT 10/12/2024 7:53 AM EDT Alex Tucker MD LAB BLOOD ORDERABLES F inal Result [facility] [address] [place] [address], * ECG 12 lead (10/09/2024 10:04 AM EDT) Ventricular Rate ECG 77 BPM GEMUSE Atrial Rate 77 BPM GEMUSE P-R Interval 156 ms GEMUSE QRS Duration 90 ms GEMUSE Q-T Interval 356 ms GEMUSE QTc 402 ms GEMUSE P Wave Paradox 57 degrees GEMUSE R Paradox 65 degrees GEMUSE T Paradox 47 degrees GEMUSE ECG Interpretation Normal sinus rhythm Normal ECG When compared with ECG of 06-MAY-2024 20:52, No significant change was found Confirmed by ALEX TUCKER ([id number]) on 10/09/2024 10:25:30 AM GEMUSE 10/09/2024 10:0 4 AM EDT 10/09/2024 10:25 AM EDT us Alex Tucker MD ECG ORDERABLES Final Result GEMUSE from Last 3 Months Insurance [facility] [employer] Care Teams [employer] Relationship Specialty Start Date End Date Rebeca Mcghee MD [address] [place] [address] PCP - General Internal Medicine 03/13/24
[2024-10-26 11:12] VITALS: BP 112/86; PULSE 94; O2SAT 98; BMI 34.8
== END 2024-10-26 11:50 | disposition home or self-care (01) ==
LOC: HO.HGI 11:00
PROVIDERS: PCP Nurse Practitioner Family; Visit Provider Nurse Practitioner Family
DX: K86.89 Other specified diseases of pancreas (principal); K76.0 Fatty (change of) liver, not elsewhere classified; K58.2 Mixed irritable bowel syndrome; Z86.0101 Personal history of adenomatous and serrated colon polyps
CPT/HCPCS: 99214

== ENCOUNTER → 2024-10-26 10:59 | Outpatient (BNVA) | payer OTHER, SELFPAY | PROVIDERS: PCP Nurse Practitioner Family; Visit Provider Nurse Practitioner Family | DX: K58.2 Mixed irritable bowel syndrome (principal); R17 Unspecified jaundice; K86.89 Other specified diseases of pancreas; Z86.0101 Personal history of adenomatous and serrated colon polyps | CPT/HCPCS: 99212 ==

== ENCOUNTER 2024-11-30 07:58 | Outpatient (REF) | payer OTHER, SELFPAY ==
--- NOTE | ~2024-11-30 | US_ITS ---
EXAMINATION: US ABDOMEN LIMITED WITH LIVER ELASTOGRAPHY HISTORY: K76.0 - Fatty (change of) liver, not elsewhere classified TECHNIQUE: Real-time grayscale ultrasound imaging of the right upper quadrant was performed and images were reviewed. COMPARISON: Comparison is made with the prior examination dated 04/20/2024. FINDINGS: Liver: The right lobe of the liver measures 14.1 cm in size. The left lobe of the liver measures 6.8 cm in size. The liver demonstrates mildly increased echotexture, consistent with steatosis. No focal mass or intrahepatic biliary ductal dilatation is identified. There is normal hepatopedal flow in the portal vein. Ultrasound elastography of the liver was performed with 10 separate measurements of the liver parenchyma with the patient in the supine position. Measurements were obtained approximately 2 cm below Bhaskar's capsule and perpendicular to the capsule. The median shear wave velocity is 1.82 m/s (previously 1.65 m/s). The interquartile range/median (IQR/median) is 0.14. Gallbladder and biliary tree: The gallbladder is unremarkable, without evidence of calculi, wall thickening, or pericholecystic fluid. There is no sonographic Raygoza sign. The common bile duct is normal in caliber measuring 5 mm. Right Kidney: The right kidney measures 11.3 cm in length. The right kidney is unremarkable, without evidence of masses, hydronephrosis, or calculi. Pancreas: The pancreatic head, neck, and body are unremarkable. The pancreatic tail is obscured by bowel gas. Abdominal aorta and inferior vena cava: The visualized portions of the abdominal aorta and inferior vena cava are normal in caliber. There is no free fluid in the right upper quadrant. US/US abdomen valentino w elastography IMPRESSION: Mild hepatic steatosis. The median shear wave velocity in the liver is 1.82 m/s, corresponding to a median liver stiffness of 9.99 kPa. The IQR/median value is 0.14. This is indicative of a quality data set. Findings are indicative of a high elastography value suggestive of compensated advanced chronic liver disease. This represents a 10% increase from the prior examination. REFERENCE: Society of Radiologists in Ultrasound Liver Stiffness Thresholds (2020): LIVER STIFFNESS THRESHOLDS: *Shear wave velocity less than 1.3 m/s (Liver Stiffness equal or less than 5 kPa): High probability of being normal. *Shear wave velocity less than 1.7 m/s (Liver Stiffness less than 9 kPa): In the absence of other known clinical signs, rules out compensated advanced chronic liver disease. *Shear wave velocity between 1.7-2.1 m/s (Liver Stiffness 9-13 kPa): Suggestive of compensated advanced chronic liver disease but need further test for confirmation. *Shear wave velocity between 2.1-2.4 m/s (Liver Stiffness 13-17 kPa): Rules in compensated advanced chronic liver disease. *Shear wave velocity greater than 2.4 m/s (Liver Stiffness over 17 kPa): Suggestive of clinically significant portal hypertension. QUALITY OF DATA SET: *IQR/Median value equal or less than 0.15 implies a quality data set. *IQR/Median value over 0.15 implies a poor quality data set. SIGNIFICANT CHANGE FROM PRIOR EXAM: Significant change if liver stiffness measurement is 10% or greater from prior exam. OTHER CONSIDERATIONS: The stage of liver fibrosis may be overestimated in the setting of acute hepatitis, liver inflammation, elevated liver function tests, hepatic vascular congestion, obstructive cholestasis, non-fasting state, and infiltrative diseases such as amyloidosis and lymphoma. In some patients with NAFLD, the liver stiffness thresholds for compensated advanced chronic liver disease may be lower. In causes other than viral hepatitis and NAFLD, liver stiffness thresholds are not well established. Electronically signed by: Shorty Rooney MD 11/30/2024 09:34 AM EDT
--- OUTSIDE RECORDS SUMMARY | 2024-11-30 08:02 | XMS_ITS | Clinical Summary ---
Author Organization [facility] Address [address] [place] [address] Phone Care Team Providers Care Nuclear Operations Specialist Name Role Phone Rebeca Mcghee MD Primary Care Provider [phone] Allergies No known active allergies Medications hydrOXYzine HCL (ATARAX) 25 mg tablet Take 1 tablet (25 mg total) by mouth every 6 (six) hours for 3 days. 12 tablet 03/13/2024 Active amLODIPine (NORVASC) 10 mg tablet Take 1 tablet (10 mg total) by mouth 1 (one) time each day. 02/18/2024 Active cholecalciferol (VITAMIN D-3) 50 mcg (2,000 unit) capsule TOME 1 C PSULA POR V A ORAL TODOS LOS D 04/09/2024 Active busPIRone (BUSPAR) 7.5 mg tablet TOME 1 TABLETA POR V A ORAL DOS VECES AL D A 04/15/2024 Active Creon 24,000-76,000 -120,000 unit capsule TOME 1 C PSULA POR V A ORAL CUATRO VECES AL D A WITH MEALS AND OR SNACKS 10/17/2024 Active Active Problems Problem Noted Date Diagnosed Date [...] Encounters Date Type Department Care Team Description 11/02/2024 12:30 PM EDT Ancillary Procedure [facility] [address] [place] [address] Other chest pain 10/19/2024 7:00 AM EDT Ancillary Procedure [facility] [address] [place] [address] Palpitations 10/09/2024 10:20 AM EDT Office Visit [facility] [address] [place] [address] Alex Tucker MD Other chest pain (Primary Dx); Palpitations; Benign essential HTN; Cardiac murmur, unspecified 10/09/2024 Telephone [facility] [address] [place] [address] Alex Tucker MD from Last 3 Months Medical History [...] Sign Reading Time Taken Comments Blood Pressure 124/81 11/02/2024 12:19 PM EDT Pulse 79 10/09/2024 9:49 AM EDT Temperature 36.6 C (97.9 F) 05/06/2024 11:37 PM EST Respiratory Rate 18 05/07/2024 1:06 AM EST Oxygen Saturation 99% 10/09/2024 9:49 AM EDT Inhaled Oxygen Concentration - - Weight 106 kg (233 lb) 11/02/2024 12:19 PM EDT Height 180.3 cm (5' 11 ) 10/09/2024 9:49 AM EDT Body Mass Index 32.5 10/09/2024 9:49 AM EDT Plan of Treatment Upcoming Encounters Date Type Department Care Team (Late st Contact Info) Description 01/18/2025 10:00 AM EST Ancillary Procedure [facility] [address] [facility] [address] [place] [address] Health Maintenance Due Date Last Done Comments DTaP,Tdap,and Td Vaccines (1 - Tdap) 05/22/1987 Hepatitis B Vaccines (1 of 3 - 19+ 3-dose series) 05/22/1987 Pneumococcal Vaccine: 50+ Years (1 of 1 - PCV) 2018 Zoster Vaccines (1 of 2) 2018 Colorectal Cancer Screening: Colonoscopy 02/14/2022 HIV Screening 02/14/2022 Hepatitis C Screening 02/14/2022 Social Influencers of Health Screening 02/14/2022 Depression Screening 03/14/2024 COVID-19 Vaccine ( - season) 2024 Influenza Vaccine (#1) 2024 Hypertension/CHF/CAD Annual BMP [...] Procedure Name Priority Date/Time Associated Diagnosis Comments STRESS TEST ONLY EXERCISE Routine 11/02/2024 12:53 PM EDT Other chest pain CBC WITH AUTO DIFFERENTIAL Routine 10/12/2024 7:53 [...] unspecified from Last 3 Months Results * Exercise stress test (11/02/2024 12:53 PM EDT) Target HR 139 bpm CV STRESS ONLY Baseline HR 92 bpm CV STRES S ONLY Baseline SBP 124 mmHg CV STRE SS ONLY Baseline DBP 81 mmHg CV STRE SS ONLY O2 sat rest 99 % CV STRES S ONLY Peak HR 152 bpm CV STRESS ONLY Peak SBP 168 mmHg CV STRESS ONLY Peak DBP 84 mmHg CV STRESS ONLY Estimated workload 11.5 METS CV STRESS ONLY Rate Pressure Product 25,536.0 mmHg*bpm CV STRESS ONLY Percent HR 93 % CV STRESS ONLY Exercise/inject ion duration (min) 9 min CV STRESS ONLY Exercise/inject ion duration (sec) 47 sec CV STRESS ONLY Angina Index 0 CV STRE SS ONLY Farooq Treadmill Score 10 CV STRESS ONLY Max HR Percent 92 % CV ST RESS ONLY ST Depression (mm) 0 mm CV STRESS ONLY Anatomical Region Laterality Modality Cardiac Diagnost ic Narrative 11/15/2024 2:06 PM EDT Normal exercise stress test. Stress protocol: Overall, the patient's exercise capacity was average. Total stress time was 9 min and 47 sec. Blood pressure demonstrated a normal response. Heart rate demonstrated a normal response. The patient reported no symptoms during the stress test. Stress ECG: There were no arrhythmias during stress. The result of the stress ECG was negative for ischemia. Stress Findings A Brayan protocol stress test was performed. Overall, the patient's exercise capacity was average. Total stress time was 9 min and 47 sec. The patient experienced no angina during the test. The test was stopped because the patient experienced fatigue. The Farooq Treadmill Score is 10. The patient's hemodynamic response was adequate for diagnosis. Blood pressure demonstrated a normal response. Heart rate demonstrated a normal response. The patient reported no symptoms during the stress test. ECG Baseline ECG is normal. 54 yo male with a history of HTN, former tobacco use and obesity referred for CP. The ECG shows normal sinus rhythm. There were no arrhythmias during stress. There is no ST segment changes during stress. There were no arrhythmias during recovery. The result of the stress ECG was negative for ischemia. Procedure Note Pooja Sharma NP / Alex Tucker MD - 11/15/2024 Normal exercise stress test. Stress protocol: Overall, the patient's exercise capacity was average.Total stress time was 9 min and 47 sec. Blood pressure demonstrated anormal response. Heart rate demonstrated a normal response. The patientreported no symptoms during the stress test. Stress ECG: There were no arrhythmias during stress. The result of thestress ECG was negative for ischemia. Alex Tucker MD CV STRESS PROCEDURES F inal Result * Lipid panel with reflex to direct LDL (10/12/2024 7:53 AM EDT) Cholesterol 138 0 - 200 mg/dL LAB CHEMISTRY METHOD 10/12/2024 10:46 AM EDT [facility] Triglycerides 48 0 - 150 mg/dL LAB CHEMISTRY METHOD 10/12/2024 10:46 AM EDT [facility] HDL 55 >=40 mg/dL LAB CHEMISTRY METHOD 10/12/2024 10:46 AM EDT [facility] LDL Calculated 73 0 - 100 mg/dL LAB CHEMISTRY METHOD 10/12/2024 10:46 AM EDT [facility] VLDL Cholesterol Remy 9.6 mg/dL LAB CHEMISTRY METHOD 10/12/2024 10:46 AM EDT [facility] Non HDL Chol. (LDL+VLDL) 83 <145 mg/dL LAB CHEMISTRY METHOD 10/12/2024 10:46 AM EDT [facility] Chol/HDL Ratio 2.5 0.0 - 4.4 LAB CHEMISTRY METHOD 10/12/2024 10:46 AM EDT [facility] Blood Venous blood specimen / Unknown Venipuncture / Unknown 10/12/2024 7:53 AM EDT 10/12/2024 7:53 AM EDT Alex Tucker MD LAB BLOOD ORDERABLES F inal Result [facility] [address] [place] [address], [place] [phone] * (ABNORMAL) CBC auto differential (10/12/2024 7:53 AM EDT) Pathologist [facility] WBC 7.9 4.8 - 10.8 K/mcL LAB HEMETOLOGY METHOD 10/12/2024 10:[address] [facility] RBC 6.10(H) 4.50 - 5.50 M/mcL LAB HEMETOLOGY METHOD 10/12/2024 10:[address] [facility] Hemoglobin 17.5 13.5 - 17.5 g/dL LAB HEMETOLOGY METHOD 10/12/2024 10:[address] [facility] Hematocrit 53.6 42.0 - 54.0 % LAB HEMETOLOGY METHOD 10/12/2024 10:[address] [facility] MCV 88.6 79.0 - 98.0 FL LAB HEMETOLOGY METHOD 10/12/2024 10:[address] [facility] MCH 28.9 27.0 - 32.0 pcg LAB HEMETOLOGY METHOD 10/12/2024 10:[address] [facility] MCHC 32.6 32.0 - 37.0 g/dL LAB HEMETOLOGY METHOD 10/12/2024 10:[address] [facility] RDW 13.2 11.0 - 15.0 % LAB HEMETOLOGY METHOD 10/12/2024 10:[address] [facility] Platelets 150 130 - 400 K/mcL LAB HEMETOLOGY METHOD 10/12/2024 10:[address] [facility] MPV 12.1(H) 7.0 - 11.0 FL LAB HEMETOLOGY METHOD 10/12/2024 10:[address] [facility] NRBC 0.0 <1.0 % LAB HEMETOLOGY METHOD 10/12/2024 10:[address] [facility] NRBC Absolute 0.00 <0.10 K/mcL LAB HEMETOLOGY METHOD 10/12/2024 10:[address] [facility] Neutrophils Relative 63.0 % LAB HEMETOLOGY METHOD 10/12/2024 10:[address] [facility] Lymphocytes Relative 25.6 % LAB HEMETOLOGY METHOD 10/12/2024 10:[address] [facility] Monocytes Relative 8.4 % LAB HEMETOLOGY METHOD 10/12/2024 10:[address] [facility] Eosinophils Relative 2.0 % LAB HEMETOLOGY METHOD 10/12/2024 10:[address] [facility] Basophils Relative 0.6 % LAB HEMETOLOGY METHOD 10/12/2024 10:[address] [facility] Immature Granulocytes Relative 0.4 % LAB HEMETOLOGY METHOD 10/12/2024 10:[address] [facility] Neutrophils Absolute 4.94 1.50 - 7.00 K/mcL LAB HEMETOLOGY METHOD 10/12/2024 10:[address] [facility] Lymphocytes Absolute 2.01 1.00 - 5.00 K/mcL LAB HEMETOLOGY METHOD 10/12/2024 10:[address] [facility] Monocytes Absolute 0.66 0.20 - 1.00 K/mcL LAB HEMETOLOGY METHOD 10/12/2024 10:[address] [facility] Eosinophils Absolute 0.16 0.00 - 0.50 K/mcL LAB HEMETOLOGY METHOD 10/12/2024 10:[address] [facility] Basophils Absolute 0.05 0.00 - 0.20 K/mcL LAB HEMETOLOGY METHOD 10/12/2024 10:[address] [facility] Immature Granulocytes Absolute 0.03 0.00 - 0.03 K/mcL LAB HEMETOLOGY METHOD 10/12/2024 10:[address] [facility] Blood Venous blood specimen / Unknown Venipuncture / Unknown 10/12/2024 7:53 AM EDT 10/12/2024 7:53 AM EDT us Alex Tucker MD LAB BLOOD ORDERABLES F inal Result Performing Organization Address [facility]/ZIP Co de Phone Number [facility] [address] [place] [address], [place] [phone] * Thyroid stimulating hormone (10/12/2024 7:53 AM EDT) Pathologist [facility] TSH 0.55 0.40 - 4.00 mcIU/mL LAB CHEMISTRY METHOD 10/12/2024 11:36 AM EDT [facility] Blood Venous blood specimen / Unknown Venipuncture / Unknown 10/12/2024 7:53 AM EDT 10/12/2024 7:53 AM EDT Alex Tucker MD LAB BLOOD ORDERABLES F inal Result Performing Organization Address [facility] Co de Phone Number [facility] [address] [place] [address], [place] [phone] * (ABNORMAL) Comprehensive metabolic panel (10/12/2024 7:53 AM EDT) [facility] Sodium 139 133 - 145 mmol/L LAB CHEMISTRY METHOD 10/12/2024 10:56 AM EDT [facility] Potassium 4.5 3.5 - 5.5 mmol/L LAB CHEMISTRY METHOD 10/12/2024 10:56 AM EDT [facility] Chloride 107 96 - 110 mmol/L LAB CHEMISTRY METHOD 10/12/2024 10:56 AM EDT [facility] CO2 30 21 - 32 mmol/L LAB CHEMISTRY METHOD 10/12/2024 10:56 AM EDT [facility] Anion Gap 2(L) 3 - 11 LAB CHEMISTRY METHOD 10/12/2024 10:56 AM EDT [facility] Glucose 95 70 - 100 mg/dL LAB CHEMISTRY METHOD 10/12/2024 10:[address] [facility] BUN 16 5 - 25 mg/dL LAB CHEMISTRY METHOD 10/12/2024 10:[address] [facility] Creatinine 0.91 0.70 - 1.30 mg/dL LAB CHEMISTRY METHOD 10/12/2024 10:[address] [facility] eGFR 99 >=60 mL/min/1. 73m2 LAB CHEMISTRY METHOD 10/12/2024 10:[address] [facility] Comment:Calculation based on the Chronic Kidney Disease Epidemiology Collaboration (CKD-EPI) equation refit without adjustment for race. BUN/Creatinine Ratio 17.6 LAB CHEMISTRY METHOD 10/12/2024 10:[address] [facility] Calcium 8.7 8.5 - 10.5 mg/dL LAB CHEMISTRY METHOD 10/12/2024 10:[address] [facility] AST (SGOT) 21 10 - 42 unit/L LAB CHEMISTRY METHOD 10/12/2024 10:[address] [facility] ALT (SGPT) 31 10 - 60 unit/L LAB CHEMISTRY METHOD 10/12/2024 10:[address] [facility] Alkaline Phosphatase 92 42 - 121 unit/L LAB CHEMISTRY METHOD 10/12/2024 10:[address] [facility] Total Protein 6.7 6.0 - 8.0 g/dL LAB CHEMISTRY METHOD 10/12/2024 10:[address] [facility] Albumin 3.7 3.2 - 5.0 g/dL LAB CHEMISTRY METHOD 10/12/2024 10:[address] [facility] Total Bilirubin 1.0 0.0 - 1.4 mg/dL LAB CHEMISTRY METHOD 10/12/2024 10:[address] [facility] Blood Venous blood specimen / Unknown Venipuncture / Unknown 10/12/2024 7:53 AM EDT 10/12/2024 7:53 AM EDT Alex Tucker MD LAB BLOOD ORDERABLES F inal Result [facility] [address] [place] [address], * ECG 12 lead (10/09/2024 10:04 AM EDT) Ventricular Rate ECG 77 BPM G[facility] Atrial Rate 77 BPM GEM[facility] P-R Interval 156 ms GEMUSE QRS Duration 90 ms GEMUSE Q-T Interval 356 ms GEMUSE QTc 402 ms GEMUSE P Wave [place] 57 degrees GEMUSE R [place] 65 degrees GEMUSE T [place] 47 degrees GEMUSE ECG Interpretation Normal sinus rhythm Normal ECG When compared with ECG of 06-MAY-2024 20:52, No significant change was found Confirmed by ALEX TUCKER ([id number]) on 10/09/2024 10:25:30 AM GEM[facility] 10/09/2024 10:0 4 AM EDT 10/09/2024 10:25 AM EDT Alex Tucker MD ECG ORDERABLES Final Result Performing Organization Address City/[facility]/ZIP Co de Phone Number GEM[facility] from Last 3 Months Insurance [facility] [employer] Care Teams Nuclear Operations Specialist Relationship Specialty Start Date End Date Espinas, Rebeca L, MD [address] [place] [address] PCP - General Internal Medicine 03/13/24
== END 2024-11-30 07:59 | disposition home or self-care (01) ==
LOC: HO.US 07:58
PROVIDERS: PCP Internal Medicine; Visit Provider Nurse Practitioner Family
DX: K76.0 Fatty (change of) liver, not elsewhere classified (principal)
CPT/HCPCS: 76705; 76981

== ENCOUNTER → 2024-11-30 07:58 | Outpatient (BNV) | payer OTHER, SELFPAY | PROVIDERS: PCP Internal Medicine; Visit Provider Radiology Diagnostic Radiology | DX: K76.0 Fatty (change of) liver, not elsewhere classified (principal) | CPT/HCPCS: 76705 ==

== ENCOUNTER 2024-12-07 12:13 | Outpatient (AMB) | payer OTHER, SELFPAY ==
--- NOTE | 2024-12-07 12:28 | MHC.OFFVIS ---
Vital Signs 12/07/24 12:30 Height 5 ft 8 in Weight 231 lb BMI 35.1 BP 117/80 Blood Pressure Location Lt brachial Position Sitting Pulse 79 Intake Visit Reasons: FUV s/p US. Intake Note: Patient follow up for US results Patient cc: Constipation. Alexandermelissa carpenter GI issues. Hair Baler Required: Yes Hair Baler Name: [facility] Interpeter Accompanied by: Self / Same As Patient Allergies No Known Allergies Allergy (Verified 12/07/24 12:28) HPI HPI FUV s/p US.: Details: LAST VISIT Elevated bilirubin Pancreatic insufficiency Hepatic steatosis Irritable bowel syndrome with both constipation and diarrhea History of adenomatous polyp of colon Plan Long discussion with patient about his prep. Patient is anxious unable to focus on instructions. Myself and the interpreters try to calm patient down. What to expect before during and after procedure discussed with patient. Stressed the importance of good bowel prep and clear liquid diet day before procedure. Patient will start Dulcolax 1 week before procedure 2 tablets every evening and day before procedure feel take 4 tablets at noon. Split MiraLax prep also discussed with patient. Patient will follow-up in our office after the procedure, sooner on as needed basis. He is agreeable to this plan and verbalizes understanding of instructions. He was given the opportunity to ask questions and all questions answered. ? Thank you for allowing me to participate in his care New bisacodyl (Dulcolax (bisacodyl)) Start taking 2 tablet every night 7 days before the procedure and 1 day before procedure take 4 tablets at noon time followed by MiraLax prep 10 mg (2 x 5 mg) PO BEDTIME 16 tabs 0RF Z12.11 polyethylene glycol 3350 (Miralax) As directed by gastroenterology department at [facility] 238 grams PO ONCE 238 grams 0RF Z12.11 TODAY'S VISIT Patient is here today to discuss ultrasound results. Patient did not go for colonoscopy, patient did not have right in had to cancel his procedure. Patient reports continues to have occasional constipation and he knows to take extra Dulcolax for 1 week before the test. Ultrasound show increased echogenicity, however not much change. Patient gain more weight since last visit. We have discussed last visit about diet. He continues to eat at fast food restaurants food that is greasy. He is taking Creon and that helps him with bloating. Patient denies any nausea or vomiting. Denies any issues with anesthesia in the past. Denies any cardiac or respiratory symptoms. We have received stress test results from [facility] that were normal. [facility] Medical History History of adenomatous polyp of colon Intermittent palpitations Anxiety with depression BPPV (benign paroxysmal positional vertigo) Hepatic steatosis Pancreatic insufficiency Kidney stone GERD (gastroesophageal reflux disease) Hypertension Surgical History Hx of colonoscopy Family History Father No problems noted. Mother Alzheimer disease Social History Housing: Apartment Alcohol intake: never Patient Tobacco Use Status: Former Tobacco user e-Cigarette/Vaping Use: Never Used Second Hand Smoke Exposure: No service: No Current occupational status: employed Cognitive needs: No Hearing needs: No Vision needs: No Review of Systems Const Denies weight gain and Denies weight loss ENT Reports no additional complaints, Denies dysphagia and Denies odynophagia Card Reports no additional complaints Resp Reports no additional complaints GI Denies abdominal pain, Denies belching, Denies melena, Denies bloating, Denies change in bowel habits, Reports constipation (Occasional), Denies dysphagia, Denies excessive flatus, Denies dyspepsia, Denies heartburn, Denies diarrhea, Denies loose stools, Denies nausea, Denies odynophagia and Denies vomiting Reports no additional complaints Musc Reports no additional complaints Neuro Reports no additional complaints Psych Reports no additional complaints Endo Reports no additional complaints Physical Exam Vital Signs: Last Vital Signs Pulse 79 12/07/24 12:30 BP 117/80 12/07/24 12:30 BMI result Body Mass Index 35.1 Const General: healthy appearing and no acute distress Nutritional Appearance: obese Orientation/consciousness: patient oriented x3 Resp Effort & Inspection: normal respiratory effort, able to speak in complete sentences, no tracheal deviation and symmetric chest movement Auscultation: clear to auscultation bilaterally Cardio Rate: regular rate GI Inspection: Yes normal to inspection, No distended and Yes obesity Palpation (GI): Soft to palpation, not firm, nontender and No hepatosplenomegaly present Auscultation: normal bowel sounds General: Yes no CVA tenderness Back/Spine/Pelvis Back: no CVA tenderness Skin General skin exam: elasticity normal, turgor normal and dry skin Neuro General: patient oriented x3 Psych Appearance: grossly normal Mental Status: mental status grossly normal Results Reviewed Results Reviewed: US WITH LIVER ELASTOGRAPHY 11/30/2024 FINDINGS: Liver: The right lobe of the liver measures 14.1 cm in size. The left lobe of the liver measures 6.8 cm in size. The liver demonstrates mildly increased echotexture, consistent with steatosis. No focal mass or intrahepatic biliary ductal dilatation is identified. There is normal hepatopedal flow in the portal vein. Ultrasound elastography of the liver was performed with 10 separate measurements of the liver parenchyma with the patient in the supine position. Measurements were obtained approximately 2 cm below Bhaskar's capsule and perpendicular to the capsule. The median shear wave velocity is 1.82 m/s (previously 1.65 m/s). The interquartile range/median (IQR/median) is 0.14. Gallbladder and biliary tree: The gallbladder is unremarkable, without evidence of calculi, wall thickening, or pericholecystic fluid. There is no sonographic Raygoza sign. The common bile duct is normal in caliber measuring 5 mm. Right Kidney: The right kidney measures 11.3 cm in length. The right kidney is unremarkable, without evidence of masses, hydronephrosis, or calculi. Pancreas: The pancreatic head, neck, and body are unremarkable. The pancreatic tail is obscured by bowel gas. Abdominal aorta and inferior vena cava: The visualized portions of the abdominal aorta and inferior vena cava are normal in caliber. There is no free fluid in the right upper quadrant. US/US abdomen valentino w elastography IMPRESSION: Mild hepatic steatosis. The median shear wave velocity in the liver is 1.82 m/s, corresponding to a median liver stiffness of 9.99 kPa. The IQR/median value is 0.14. This is indicative of a quality data set. Findings are indicative of a high elastography value suggestive of compensated advanced chronic liver disease. This represents a 10% increase from the prior examination. Assessment & Plan Assessment & Plan (1) Hepatic steatosis: Code(s): K76.0 - Fatty (change of) liver, not elsewhere classified Category: Medical Plan Will check platelet, liver fibrosis, liver panel. Long discussion with patient about dietary choices. Low fat, low salt, low carb and high-protein diet discussed with patient. Patient was encouraged to call the office to reschedule colonoscopy. I will see him after the procedure. Patient is agreeable to this plan and verbalizes understanding of instructions. He was given the opportunity to ask questions and all questions answered. Thank you for allowing me to participate in his care Orders: Orders Platelet Count 12/07/24 K76.0 - Fatty (change of) liver, not elsewhere classified Liver Fibrosis Pnl 12/07/24 K76.0 - Fatty (change of) liver, not elsewhere classified Liver Panel 12/07/24 R74.01 - Elevation of levels of liver transaminase levels Coding Level of Care Code Est Pt Level 3 (97303) Diagnoses Hepatic steatosis K76.0 Time Spent (min) 25 Comment 15 minutes spent with patient and additional 10 minutes spent reviewing his records
[2024-12-07 12:30] VITALS: BP 117/80; PULSE 79; BMI 35.1
--- OUTSIDE RECORDS SUMMARY | 2024-12-07 13:58 | XMS_ITS | Clinical Summary ---
Author Organization [facility] Address [address] [place] [address] Phone Care Team Providers Care Sales Representative [employer] Name Role Phone Rebeca Mcghee MD Primary Care Provider [phone] Allergies No known active allergies Medications hydrOXYzine [...] Description 11/02/2024 12:30 PM EDT Ancillary Procedure [facility] [address] [place] [address] Other chest pain 10/19/2024 7:00 AM EDT Ancillary Procedure [facility] [address] [place] [address] Palpitations 10/09/2024 10:20 AM EDT Office Visit [facility] [address] [place] [address] Alex Tucker MD Other chest pain (Primary Dx); Palpitations; Benign essential HTN; Cardiac murmur, unspecified 10/09/2024 Telephone [facility] [address] [place] [address] Alex Tucker MD from Last 3 Months [...] Description 01/18/2025 10:00 AM EST Ancillary Procedure [facility] [address] [facility] [address] [place] [address] Health Maintenance Due Date Last [...] LAB CHEMISTRY METHOD 10/12/2024 10:46 AM EDT [facility] Triglycerides 48 0 - 150 mg/dL LAB CHEMISTRY METHOD 10/12/2024 10:46 AM EDT [facility] HDL 55 >=40 mg/dL LAB CHEMISTRY METHOD 10/12/2024 10:46 AM EDT [facility] LDL Calculated 73 0 - 100 mg/dL LAB CHEMISTRY METHOD 10/12/2024 10:46 AM EDT [facility] VLDL Cholesterol Remy 9.6 mg/dL LAB CHEMISTRY METHOD 10/12/2024 10:46 AM EDT [facility] Non HDL Chol. (LDL+VLDL) 83 <145 mg/dL LAB CHEMISTRY METHOD 10/12/2024 10:46 AM EDT [facility] Chol/HDL Ratio 2.5 0.0 - 4.4 LAB CHEMISTRY METHOD 10/12/2024 10:46 AM EDT [facility] Blood Venous blood specimen / Unknown Venipuncture / Unknown 10/12/2024 7:53 AM EDT 10/12/2024 7:53 AM EDT Alex Tucker MD LAB BLOOD ORDERABLES F inal Result [facility] [address] [place] [address], [place] [phone] * (ABNORMAL) CBC auto differential (10/12/2024 7:53 AM EDT) Pathologist [facility] WBC 7.9 4.8 - 10.8 K/mcL LAB HEMETOLOGY METHOD 10/12/2024 10:17 AM [facility] RBC 6.10(H) 4.50 - 5.50 M/mcL LAB HEMETOLOGY METHOD 10/12/2024 10:17 AM [facility] Hemoglobin 17.5 13.5 - 17.5 g/dL LAB HEMETOLOGY METHOD 10/12/2024 10:17 AM [facility] Hematocrit 53.6 42.0 - 54.0 % LAB HEMETOLOGY METHOD 10/12/2024 10:17 AM [facility] MCV 88.6 79.0 - 98.0 FL LAB HEMETOLOGY METHOD 10/12/2024 10:17 AM [facility] MCH 28.9 27.0 - 32.0 pcg LAB HEMETOLOGY METHOD 10/12/2024 10:17 AM [facility] MCHC 32.6 32.0 - 37.0 g/dL LAB HEMETOLOGY METHOD 10/12/2024 10:17 AM [facility] RDW 13.2 11.0 - 15.0 % LAB HEMETOLOGY METHOD 10/12/2024 10:17 AM [facility] Platelets 150 130 - 400 K/mcL LAB HEMETOLOGY METHOD 10/12/2024 10:17 AM [facility] MPV 12.1(H) 7.0 - 11.0 FL LAB HEMETOLOGY METHOD 10/12/2024 10:17 AM [facility] NRBC 0.0 <1.0 % LAB HEMETOLOGY METHOD 10/12/2024 10:17 AM [facility] NRBC Absolute 0.00 <0.10 K/mcL LAB HEMETOLOGY METHOD 10/12/2024 10:17 AM [facility] Neutrophils Relative 63.0 % LAB HEMETOLOGY METHOD 10/12/2024 10:17 AM [facility] Lymphocytes Relative 25.6 % LAB HEMETOLOGY METHOD 10/12/2024 10:17 AM [facility] Monocytes Relative 8.4 % LAB HEMETOLOGY METHOD 10/12/2024 10:17 AM [facility] Eosinophils Relative 2.0 % LAB HEMETOLOGY METHOD 10/12/2024 10:17 AM [facility] Basophils Relative 0.6 % LAB HEMETOLOGY METHOD 10/12/2024 10:17 AM [facility] Immature Granulocytes Relative 0.4 % LAB HEMETOLOGY METHOD 10/12/2024 10:17 AM [facility] Neutrophils Absolute 4.94 1.50 - 7.00 K/mcL LAB HEMETOLOGY METHOD 10/12/2024 10:17 AM [facility] Lymphocytes Absolute 2.01 1.00 - 5.00 K/mcL LAB HEMETOLOGY METHOD 10/12/2024 10:17 AM [facility] Monocytes Absolute 0.66 0.20 - 1.00 K/mcL LAB HEMETOLOGY METHOD 10/12/2024 10:17 AM [facility] Eosinophils Absolute 0.16 0.00 - 0.50 K/mcL LAB HEMETOLOGY METHOD 10/12/2024 10:17 AM [facility] Basophils Absolute 0.05 0.00 - 0.20 K/mcL LAB HEMETOLOGY METHOD 10/12/2024 10:17 AM [facility] Immature Granulocytes Absolute 0.03 0.00 - 0.03 K/mcL LAB HEMETOLOGY METHOD 10/12/2024 10:17 AM [facility] Blood Venous blood specimen / Unknown Venipuncture / Unknown 10/12/2024 7:53 AM EDT 10/12/2024 7:53 AM EDT us Alex Tucker MD LAB BLOOD ORDERABLES F inal Result Performing Organization Address [facility]/ZIP Co de Phone Number [facility] [address] [place] [address], [place] [phone] * Thyroid stimulating hormone (10/12/2024 7:53 AM EDT) Pathologist [facility] TSH 0.55 0.40 - 4.00 mcIU/mL LAB CHEMISTRY METHOD 10/12/2024 11:36 AM EDT [facility] Blood Venous blood specimen / Unknown Venipuncture / Unknown 10/12/2024 7:53 AM EDT 10/12/2024 7:53 AM EDT Alex Tucker MD LAB BLOOD ORDERABLES F inal Result Performing Organization Address [facility] Co de Phone Number [facility] [address] [place] [address], [place] [phone] * (ABNORMAL) Comprehensive metabolic panel (10/12/2024 7:53 AM EDT) [facility] Sodium 139 133 - 145 mmol/L LAB CHEMISTRY METHOD 10/12/2024 10:56 AM EDT [facility] Potassium 4.5 3.5 - 5.5 mmol/L LAB CHEMISTRY METHOD 10/12/2024 10:56 AM EDT [facility] Chloride 107 96 - 110 mmol/L LAB CHEMISTRY METHOD 10/12/2024 10:56 AM EDT [facility] CO2 30 21 - 32 mmol/L LAB CHEMISTRY METHOD 10/12/2024 10:56 AM EDT [facility] Anion Gap 2(L) 3 - 11 LAB CHEMISTRY METHOD 10/12/2024 10:56 AM EDT [facility] Glucose 95 70 - 100 mg/dL LAB CHEMISTRY METHOD 10/12/2024 10:56 AM [facility] BUN 16 5 - 25 mg/dL LAB CHEMISTRY METHOD 10/12/2024 10:56 AM [facility] Creatinine 0.91 0.70 - 1.30 mg/dL LAB CHEMISTRY METHOD 10/12/2024 10:56 AM [facility] eGFR 99 >=60 mL/min/1. 73m2 LAB CHEMISTRY METHOD 10/12/2024 10:56 AM [facility] Comment:Calculation based on the Chronic Kidney Disease Epidemiology Collaboration (CKD-EPI) equation refit without adjustment for race. BUN/Creatinine Ratio 17.6 LAB CHEMISTRY METHOD 10/12/2024 10:56 AM [facility] Calcium 8.7 8.5 - 10.5 mg/dL LAB CHEMISTRY METHOD 10/12/2024 10:56 AM [facility] AST (SGOT) 21 10 - 42 unit/L LAB CHEMISTRY METHOD 10/12/2024 10:56 AM [facility] ALT (SGPT) 31 10 - 60 unit/L LAB CHEMISTRY METHOD 10/12/2024 10:56 AM [facility] Alkaline Phosphatase 92 42 - 121 unit/L LAB CHEMISTRY METHOD 10/12/2024 10:56 AM [facility] Total Protein 6.7 6.0 - 8.0 g/dL LAB CHEMISTRY METHOD 10/12/2024 10:56 AM [facility] Albumin 3.7 3.2 - 5.0 g/dL LAB CHEMISTRY METHOD 10/12/2024 10:56 AM [facility] Total Bilirubin 1.0 0.0 - 1.4 mg/dL LAB CHEMISTRY METHOD 10/12/2024 10:56 AM [facility] Blood Venous blood specimen / Unknown Venipuncture / Unknown 10/12/2024 7:53 AM EDT 10/12/2024 7:53 AM EDT Alex Tucker MD LAB BLOOD ORDERABLES F inal Result [facility] [address] [place] [address], * ECG 12 lead (10/09/2024 10:04 AM EDT) Ventricular Rate ECG 77 BPM GEMUSE Atrial Rate 77 BPM GEMUSE P-R Interval 156 ms GEMUSE QRS Duration 90 ms GEMUSE Q-T Interval 356 ms GEMUSE QTc 402 ms GEMUSE P Wave [place] 57 degrees GEMUSE R [place] 65 degrees GEMUSE T [place] 47 degrees GEMUSE ECG Interpretation Normal sinus rhythm Normal ECG When compared with ECG of 06-MAY-2024 20:52, No significant change was found Confirmed by ALEX TUCKER ([id number]) on 10/09/2024 10:25:30 AM GEMUSE 10/09/2024 10:0 4 AM EDT 10/09/2024 10:25 AM EDT Alex Tucker MD ECG ORDERABLES Final Result Performing Organization Address City/[facility]/ZIP Co de Phone Number GEMUSE from Last 3 Months Insurance [facility] Care Teams Sales Representative [employer] Relationship Specialty Start Date End Date Espinas, Rebeca L, MD [address] [place] [address] PCP - General Internal Medicine 03/13/24
== END 2024-12-07 13:51 | disposition home or self-care (01) ==
LOC: HO.HGI 12:14
PROVIDERS: PCP Nurse Practitioner Family; Visit Provider Nurse Practitioner Family
DX: K76.0 Fatty (change of) liver, not elsewhere classified (principal)
CPT/HCPCS: 99213

== ENCOUNTER 2024-12-07 12:13 | Outpatient (REF) | payer OTHER, SELFPAY ==
[2024-12-07 13:25] LABS: Platelet Count 156 X10*3/uL (160-400)
[2024-12-07 13:56] LABS: Alanine Aminotransferase 33 U/L (0-40); Albumin Level 4.4 g/dL (3.5-5.0); Alkaline Phosphatase 88 U/L (39-117); Aspartate Amino Transferase 37 U/L (5-37); Total Protein 7.1 g/dL (6.5-8.0)
[2024-12-14 16:53] LABS: FIB-ALT 22 U/L (9-46); FIB-Alpha-2-Macroglobulin 203 mg/dL (106-279); FIB-Apolipoprotein A1 165 mg/dL (94-176); FIB-GGT 14 U/L (3-85); FIB-Haptoglobin 105 mg/dL (43-212); FIB-Total Bilirubin 1.2 mg/dL (0.2-1.2); Liver Fibrosis Score 0.31; Liver Fibrosis Stage F1; Nec Inflam Act Grade A0; Nec Inflam Act Score 0.09
== END 2024-12-07 12:14 | disposition home or self-care (01) ==
LOC: HO.LAB 12:13
PROVIDERS: PCP Nurse Practitioner Family; Visit Provider Nurse Practitioner Family
DX: K76.0 Fatty (change of) liver, not elsewhere classified (principal); R74.01 Elevation of levels of liver transaminase levels
CPT/HCPCS: 36415; 80076; 81596; 85049; 99212